=== PATIENT | female | born 1955 | race Caucasian/White ===

== ENCOUNTER 2016-05-17 23:32 | Emergency (ER) | payer OTHER ==
[2016-05-18 00:19] LABS: Appearance,Urine Clear (Clear); Bilirubin,Urine Negative (Negative); Glucose,Urine (UA) Negative (Negative); Ketones,Urine Negative (Negative); Leukocyte Esterase,Urine Trace (Negative); Nitrite,Urine Negative (Negative); Particle Count 1399; Protein,Urine Trace (Negative); RBC,Urine 60 /hpf (0-5); Specific Gravity,Urine 1.008 (1.001-1.035); UA Billing (MACRO vs. MICRO) MICRO; Urobilinogen,Urine <2.0 mg/dL (<2.0); WBC,Urine 3 /hpf (0-5)
[2016-05-18] MEDS ORDERED: SODIUM CHLORIDE 0.9% 500 ML IV ONE (01:30)
[2016-05-18] MEDS ORDERED: MORPHINE SULFATE 2 MG/ML SYRINGE IV STA (01:30)
[2016-05-18 02:08] LABS: Basophils % (A) 0 %; CH 29.3; CHCM 32.7; Eosinophils # (A) 0.2 k/uL (0-0.7); Eosinophils % (A) 2 %; HCT 41.3 % (34.0-46.0); HDW 2.63; HGB 13.6 gm/dL (11.4-16.0); Luc # (Auto) 0.08; Luc % (Auto) 1; Lymphocytes % (A) 11 %; MCH 29.5 pg (25.0-35.0); MCHC 32.8 g/dL (31.0-37.0); MCV 89.9 fL (80.0-100.0); Mean Platelet Volume 8.4; Monocytes # (A) 0.4 k/uL (0-1.0); Monocytes % (A) 4 %; Neutrophils # (A) 7.3 k/uL (1.3-7.7); Neutrophils % (A) 81 %; RDW 12.8 % (11.5-15.5); WBC (Perox) 9.59
[2016-05-18] MEDS ORDERED: ONDANSETRON 4 MG/2 ML VIAL IVP STA (02:10)
[2016-05-18 02:16] LABS: Partial Thromboplastin Time 25.6 sec (22.0-30.0); Prothrombin Time 9.8 sec (9.0-12.0)
[2016-05-18 02:19] LABS: ALT 33 U/L (9-52); AST 26 U/L (14-36); Alkaline Phosphatase 104 U/L (38-126); Amylase 75 U/L (30-110); Anion Gap 13 mmol/L; Blood Urea Nitrogen 20 mg/dL (7-17); Calcium 9.6 mg/dL (8.4-10.2); Carbon Dioxide 18 mmol/L (22-30); Chloride 108 mmol/L (98-107); Glucose 112 mg/dL (74-99); Non-African American GFR(MDRD) 56 (>60 ml/min/1.73 sqM); Potassium 4.4 mmol/L (3.5-5.1); Sodium 139 mmol/L (137-145); Total Bilirubin 0.9 mg/dL (0.2-1.3); Total Protein 6.8 g/dL (6.3-8.2)
--- NOTE | 2016-05-18 02:47 | XR ---
EXAMINATION TYPE: XR KUB DATE OF EXAM: 05/18/2016 2:19 AM CLINICAL HISTORY: Left flank pain gross hematuria history of cholecystectomy. TECHNIQUE: Single supine KUB image of the abdomen is obtained. COMPARISON: March 31, 2016 FINDINGS: Cholecystectomy changes are noted. Small densities are noted superimposing both kidneys and are suspicious for multiple bilateral kidney stones. These densities could also be related to fecal material of the colon. Scattered gas is seen in non-distended small bowel loops. Gas and fecal material is seen in non-dist ended colon. There is no visceromegaly, pneumoperitoneum appreciated. The lung bases are clear and the osseous structures are intact. IMPRESSION: Possible bilateral kidney stones. Overall nonobstructive bowel gas pattern. Cholecystectomy.
[2016-05-18] MEDS ORDERED: FAMOTIDINE 20 MG/2 ML VIAL IV STA (02:48)
[2016-05-18 02:54] LABS: Erythrocyte Sedimentation Rate 5 mm/hr (0-20)
--- NOTE | 2016-05-18 03:16 | ED ---
General Adult HPI - General Chief complaint: Abdominal Pain Stated complaint: L Flank Pain Time Seen by Provider: 05/18/16 00:56 Source: patient, RN notes reviewed Mode of arrival: wheelchair Limitations: no limitations - History of Present Illness Initial comments: This is a 6-year-old female presents with left CVA tenderness that started today. Patient states she has a history of kidney stones but the pain she is having today does not radiate to the groin like her pain has been the past. Patient states she took a Tylenol 3 with codeine and a Flomax with no pain relief. Patient states she has a history of kidney disease and primary pulmonary hypertension. Patient denies any nausea/vomiting/diarrhea, fever/ chills. Patient denies any recent fever, chills, shortness breath, chest pain, abdominal pain, nausea/vomiting/diarrhea, back pain, numbness, tingling, hematuria, headache, or visual changes, or any other complaints. - Related Data Home Medications Medication Instructions Recorded Confirmed Macitentan [Opsumit] 10 mg PO QAM 09/22/13 05/17/16 Ergocalciferol (Vitamin D2) 50,000 unit PO FR 03/31/16 05/17/16 [Drisdol] Fluticasone Nasal [place] [Flonase 1 spray EA NOSTRIL DAILY PRN 03/31/16 05/17/16 Nasal [place]] Previous Rx's Medication Instructions Recorded Potassium Chloride ER [K-Dur 20] 20 meq PO BID #60 tab 07/15/15 Acetaminophen with Codeine 1 tab PO Q4H PRN #20 tab 03/31/16 [Tylenol w/codeine #3] Ondansetron Odt [Zofran Odt] 4 mg PO Q8HR PRN #12 tab 03/31/16 Tamsulosin HCl [Flomax] 0.4 mg PO DAILY #14 cap 03/31/16 Acetaminophen-Codeine 300-30mg 1 tab PO Q6H #15 tablet 05/18/16 [Tylenol #3] Ondansetron Odt [Zofran Odt] 4 mg PO Q12HR 3 Days 05/18/16 Tamsulosin HCl [Flomax] 0.4 mg PO DAILY 5 Days 05/18/16 Allergies Allergy/AdvReac Type Severity Reaction Status Date / Time hydrocodone bitartrate Allergy Severe Nausea & Verified 05/17/16 23:44 [From Vicodin] Vomiting adhesive tape Allergy Rash/Hives Verified 05/17/16 23:44 levofloxacin [From Levaquin] Allergy Unknown Verified 05/17/16 23:44 Penicillins Allergy Rash/Hives Verified 05/17/16 23:44 Sulfa (Sulfonamide Allergy Rash/Hives Verified 05/17/16 23:44 Antibiotics) Review of Systems ROS Statement: Those systems with pertinent positive or pertinent negative responses have been documented in the HPI. ROS Other: All systems not noted in ROS Statement are negative. 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, HX MIGRAINES- NONE IN YEARS, WAS HOSPITALIZED 08/2013 FOR SEPTIC SHOCK, RTA History of Any Multi-Drug Resistant Organisms: None Reported Past Surgical History: Section, Cholecystectomy, Orthopedic Surgery, Tonsillectomy Additional Past Surgical History / Comment(s): X 4, RT KNEE SURGERY 1972, D & C 1978 Past Anesthesia/Blood Transfusion Reactions: Motion Sickness Past Psychological History: Anxiety, Depression Smoking Status: Never smoker Past Alcohol Use History: Occasional Additional Past Alcohol Use History / Comment(s): PT STATES SMOKED FROM AGE 20( 1974) TILL AGE 30(1984) STATES HAS A DRINK 1-2 X A WEEK Past Drug Use History: None Reported - Past Family History Mother Family Medical History: AFIB, CVA/TIA, Neurologic Disorder Additional Family Medical History / Comment(s): HX PARKINSON'S Father Additional Family Medical History / Comment(s): HEART DISEASE AND FOOD ALLERGIES - PT'S UNCLE(P) COLON CA General Exam - General Exam Comments Initial Comments: General: The patient is awake and alert, in no distress, and does not appear acutely ill. Eye: Pupils are equal, round and reactive to light, extra-ocular movements are intact. No nystagmus. There is normal conjunctiva bilaterally. No signs of icterus. Ears: TMs pink and pearly with intact cone of light bilaterally. Normal external ear canals Nose: Nasal turbinates pink and moist Mouth and throat: There are moist mucous membranes and no oral lesions. Neck: The neck is supple, there is no tenderness or JVD. Cardiovascular: There is a regular rate and rhythm. No murmur, rub or gallop is appreciated. Respiratory: Lungs are clear to auscultation, respirations are non-labored, breath sounds are equal. No wheezes, stridor, rales, or rhonchi. Gastrointestinal: Left-sided CVA tenderness present, Soft, non-distended, non- tender abdomen without masses or organomegaly noted. There is no rebound or guarding present. Bowel sounds are unremarkable. Musculoskeletal: Normal ROM, no tenderness. Strength 5/5. Sensation intact. Radial Pulses equal bilaterally 2+. Neurological: A&O x 3. CN II-XII intact, There are no obvious motor or sensory deficits. Coordination appears grossly intact. Speech is normal. Skin: Skin is warm and dry and no rashes or lesions are noted. Psychiatric: Cooperative, appropriate mood & affect, normal judgment. Limitations: no limitations Course Vital Signs 05/17/16 05/18/16 05/18/16 23:41 00:27 01:50 Temperature 98.7 F 97.8 F 98.2 F Pulse Rate 85 80 69 Respiratory 20 18 16 Rate Blood Pressure 116/55 116/67 110/59 O2 Sat by Pulse 97 95 99 Oximetry 05/18/16 05/18/16 03:03 05:10 Temperature 97.8 F 97 F L Pulse Rate 67 87 Respiratory 16 17 Rate Blood Pressure 102/57 129/78 O2 Sat by Pulse 99 97 Oximetry Medical Decision Making - Medical Decision Making This is a 61-year-old female presents with left-sided CVA tenderness that started today. On physical exam around the EC today. Left-sided CVA tenderness present, Soft, non-distended, non-tender abdomen without masses or organomegaly noted. There is no rebound or guarding present. Bowel sounds are unremarkable. Labs were drawn and reviewed. A KUB was done and reviewed showing:Possible bilateral kidney stones. Overall nonobstructive bowel gas pattern. Cholecystectomy. Report read by . At this time patient's pain is under control. A CT of the abdomen and pelvis without contrast was done and reviewed showing: #1 there is a 5 mm obstructing O Ella stone at the left UPJ with mild to moderate left hydronephrosis #2 multiple nonobstructing opaque stones and cysts in both kidneys. #3 visualized appendix appears unremarkable. #4cholecystectomy. Report read by Dr. Liu Discussed results with patient. I discussed the patient will be sent home on Flomax and Tylenol 3 and zofran. I discussed the patient should follow-up with her urologist. Discussed return parameters.Discussed that patient should follow up with PCP in one to 2 days or return to the [facility] for any worsening symptoms or for any further concerns. Patient was receptive to this plan and patient will be discharged home. I discussed his case with attending physician Dr. Larson who agrees the plan as stated above. - Lab Data Result diagrams: 05/18/16 01:47 05/18/16 01:47 Lab Results 05/18/16 05/18/16 05/18/16 Range/Units 00:04 01:47 01:47 WBC 9.0 (3.8-10.6) k/uL RBC 4.60 (3.80-5.40) m/uL Hgb 13.6 (11.4-16.0) gm/dL Hct 41.3 (34.0-46.0) % MCV 89.9 (80.0-100.0) fL MCH 29.5 (25.0-35.0) pg MCHC 32.8 (31.0-37.0) g/dL RDW 12.8 (11.5-15.5) % Plt Count 213 (150-450) k/uL Neutrophils % 81 % Lymphocytes % 11 % Monocytes % 4 % Eosinophils % 2 % Basophils % 0 % Neutrophils # 7.3 (1.3-7.7) k/uL Lymphocytes # 1.0 (1.0-4.8) k/uL Monocytes # 0.4 (0-1.0) k/uL Eosinophils # 0.2 (0-0.7) k/uL Basophils # 0.0 (0-0.2) k/uL ESR 5 (0-20) mm/hr PT (9.0-12.0) sec INR (<1.1) APTT (22.0-30.0) sec Sodium 139 (137-145) mmol/L Potassium 4.4 (3.5-5.1) mmol/L Chloride 108 H (98-107) mmol/L Carbon Dioxide 18 L (22-30) mmol/L Anion Gap 13 mmol/L BUN 20 H (7-17) mg/dL Creatinine 1.00 (0.52-1.04) mg/dL Est GFR (MDRD) Af Amer >60 (>60 ml/min/1.73 sqM) Est GFR (MDRD) Non-Af 56 (>60 ml/min/1.73 sqM) Glucose 112 H (74-99) mg/dL Plasma Lactic Acid [place] (0.7-2.0) mmol/L Calcium 9.6 (8.4-10.2) mg/dL Total Bilirubin 0.9 (0.2-1.3) mg/dL AST 26 (14-36) U/L ALT 33 (9-52) U/L Alkaline Phosphatase 104 (38-126) U/L Total Protein 6.8 (6.3-8.2) g/dL Albumin 4.4 (3.5-5.0) g/dL Amylase 75 (30-110) U/L Lipase 101 (23-300) U/L Urine Color Yellow Urine Appearance Clear (Clear) Urine pH 7.0 (5.0-8.0) Ur Specific Blum 1.008 (1.001-1.035) Urine Protein Trace H (Negative) Urine Glucose (UA) Negative (Negative) Urine Ketones Negative (Negative) Urine Blood Moderate H (Negative) Urine Nitrate Negative (Negative) Urine Bilirubin Negative (Negative) Urine Urobilinogen <2.0 (<2.0) mg/dL Ur Leukocyte Esterase Trace H (Negative) Urine RBC 60 H (0-5) /hpf Urine WBC 3 (0-5) /hpf 05/18/16 05/18/16 Range/Units 01:47 01:47 WBC (3.8-10.6) k/uL RBC (3.80-5.40) m/uL Hgb (11.4-16.0) gm/dL Hct (34.0-46.0) % MCV (80.0-100.0) fL MCH (25.0-35.0) pg MCHC (31.0-37.0) g/dL RDW (11.5-15.5) % Plt Count (150-450) k/uL Neutrophils % % Lymphocytes % % Monocytes % % Eosinophils % % Basophils % % Neutrophils # (1.3-7.7) k/uL Lymphocytes # (1.0-4.8) k/uL Monocytes # (0-1.0) k/uL Eosinophils # (0-0.7) k/uL Basophils # (0-0.2) k/uL ESR (0-20) mm/hr PT 9.8 (9.0-12.0) sec INR 1.0 (<1.1) APTT 25.6 (22.0-30.0) sec Sodium (137-145) mmol/L Potassium (3.5-5.1) mmol/L Chloride (98-107) mmol/L Carbon Dioxide (22-30) mmol/L Anion Gap mmol/L BUN (7-17) mg/dL Creatinine (0.52-1.04) mg/dL Est GFR (MDRD) Af Amer (>60 ml/min/1.73 sqM) Est GFR (MDRD) Non-Af (>60 ml/min/1.73 sqM) Glucose (74-99) mg/dL Plasma Lactic Acid [place] 0.6 L (0.7-2.0) mmol/L Calcium (8.4-10.2) mg/dL Total Bilirubin (0.2-1.3) mg/dL AST (14-36) U/L ALT (9-52) U/L Alkaline Phosphatase (38-126) U/L Total Protein (6.3-8.2) g/dL Albumin (3.5-5.0) g/dL Amylase (30-110) U/L Lipase (23-300) U/L Urine Color Urine Appearance (Clear) Urine pH (5.0-8.0) Ur Specific Blum (1.001-1.035) Urine Protein (Negative) Urine Glucose (UA) (Negative) Urine Ketones (Negative) Urine Blood (Negative) Urine Nitrate (Negative) Urine Bilirubin (Negative) Urine Urobilinogen (<2.0) mg/dL Ur Leukocyte Esterase (Negative) Urine RBC (0-5) /hpf Urine WBC (0-5) /hpf Disposition Clinical Impression: Renal calculus Disposition: HOME SELF-CARE Condition: Good Instructions: Kidney Stones (ED) Additional Instructions: Please use medication as discussed. Please follow-up with urologist as soon as possible. Please follow-up with family doctor in the next 2 days of symptoms have not improved. Please return to emergency room if the symptoms increase or worsen or for any other concerns. Prescriptions: Acetaminophen-Codeine 300-30mg [Tylenol #3] 1 tab PO Q6H #15 tablet Ondansetron Odt [Zofran Odt] 4 mg PO Q12HR 3 Days Tamsulosin HCl [Flomax] 0.4 mg PO DAILY 5 Days Referrals: Naveed Griffin MD [Primary Care Provider] - 1-2 days Pasquale Hernandez MD [STAFF PHYSICIAN] - 1-2 days Time of Disposition: 04:37
--- NOTE | 2016-05-18 04:13 | CT ---
EXAMINATION TYPE: CT abdomen pelvis wo con DATE OF EXAM: 05/18/2016 3:42 AM COMPARISON: NONE HISTORY: left flank pain gross hematuria history of cholecystectomy CT DLP: 308.70 mGycm Automated exposure control for dose reduction was used. TECHNIQUE: Helical acquisition of images was performed from the lung bases through the pelvis. FINDINGS: LUNG BASES: No significant abnormality is appreciated. Minor pericardial effusion is suggested in the axial image 1.. LIVER/GB: No significant abnormality is appreciated in the liver. Cholecystectomy changes are present . PANCREAS: No significant abnormality is seen. SPLEEN: No significant abnormality is seen. ADRENALS: No significant abnormality is seen. KIDNEYS: There are multiple nonobstructing opaque stones in both kidneys with largest of these stones measuring approximately 7 cm in the left kidney in the axial image 61. There is 5 mm obstructing opaque stone at the left UPJ with mild to moderate left hydronephrosis. Dis patricia left ureter showed no definite obstructing stones. There is perinephric stranding on the left atrhur e. There is suggestion of benign-appearing cysts in both kidneys. RETROPERITONEAL ADENOPATHY: None visualized REPRODUCTIVE ORGANS: No significant abnormality is seen URINARY BLADDER: Urinary bladder is not well distended. Thickening of urinary bladder is most likely related to incomplete distention. PELVIC ADENOPATHY: None visualized. OSSEOUS STRUCTURES: No significant abnormality is seen. BOWEL: There is mild to moderate colonic diverticulosis. Visualized appendix is gas-filled and appea rs unremarkable in the coronal image 47.. OTHER: IMPRESSION: 1. THERE IS 5 MM OBSTRUCTING OPAQUE STONE AT THE LEFT UPJ WITH MILD TO MODERATE LEFT HYDRONEPHROSIS. 2. MULTIPLE NONOBSTRUCTING OPAQUE STONES AND CYSTS IN BOTH KIDNEYS. 3. VISUALIZED APPENDIX APPEARS UNREMARKABLE. 4. CHOLECYSTECTOMY. A phone report is given to Antonina Najera at the time of the dictation.
[2016-05-18 05:10] VITALS: BP 129/78; PULSE 87; RESP 17; TEMP 97
== END 2016-05-18 05:10 | disposition home or self-care (01) ==
LOC: EC 23:32
DX: N13.2 Hydronephrosis with renal and ureteral calculous obstruction (principal); Z87.442 Personal history of urinary calculi; I27.0 Primary pulmonary hypertension; Z79.899 Other long term (current) drug therapy; Z79.51 Long term (current) use of inhaled steroids; Z87.891 Personal history of nicotine dependence; Z88.1 Allergy status to other antibiotic agents; Z88.5 Allergy status to narcotic agent; Z88.0 Allergy status to penicillin; Z88.2 Allergy status to sulfonamides
CPT/HCPCS: 99284; 96374; 96375; 36415; 80053; 85652; 82150; 83605; 83690; 85025; 85610; 85730; 81001; 87086; 74000; 74176; J2405; J2270

== ENCOUNTER → 2016-05-20 | Outpatient (CLI) | payer OTHER ==
--- NOTE | 2016-05-20 12:21 | XR ---
EXAMINATION TYPE: XR KUB DATE OF EXAM: 05/20/2016 12:05 PM COMPARISON: 05/18/2016 HISTORY: Pain FINDINGS: The osseous structures are intact. The bowel gas pattern is nonspecific. Post cholecystectomy clips noted. Left kidney: There are approximately 20 to calcifications overlying the left kidney the largest measu ring 7 mm. The 5 mm calculus near the left UPJ is difficult to see due to overlying bowel gas but is suspicious for underlying within the mid ureter on today's exam at the level of L3-L4. Right kidney: There are approximately 11 calcifications overlying the right kidney the largest measur ing 4 mm. Findings appear stable. Within the pelvis there are stable nonspecific calcifications most likely vascular. IMPRESSION: 1. Bilateral nephrolithiasis. The left UPJ calcification may have migrated to the proximal level of L 3-L4.
== END | disposition home or self-care (01) ==
LOC: RADXRMAIN 11:35
PROVIDERS: ATTEND Urology
DX: N20.0 Calculus of kidney (principal)
CPT/HCPCS: 74000

== ENCOUNTER → 2016-05-24 | Outpatient (CLI) | payer OTHER ==
[2016-05-24 11:43] LABS: EKG EKG PERFORMED
[2016-05-24 12:16] LABS: Blood Urea Nitrogen 10 mg/dL (7-17); INR 0.9 (<1.1); Non-African American GFR(MDRD) 44 (>60 ml/min/1.73 sqM); Partial Thromboplastin Time 24.2 sec (22.0-30.0); Prothrombin Time 9.6 sec (9.0-12.0)
== END | disposition home or self-care (01) ==
LOC: LABWHC1 11:12
PROVIDERS: ATTEND Urology
DX: N20.1 Calculus of ureter (principal)
CPT/HCPCS: 36415; 82565; 84520; 85610; 85730; 93005

== ENCOUNTER 2016-05-26 14:16 | Day surgery (SDC) | payer OTHER ==
[2016-05-23 14:48] VITALS: BMI 21.2
[~2016-05-26 14:16] MED LIST: LACTATED RINGERS 1,000 ML IV SCH; Pre Op ABX Message 1 EACH MISC MISCELLANE ONE
--- NOTE | 2016-05-26 14:18 | XR ---
EXAMINATION TYPE: XR KUB DATE OF EXAM: 05/26/2016 2:11 PM HISTORY: Pain Comparison: 05/20/16 Single KUB is submitted for interpretation. Findings: Right renal calculi: Innumerable right-sided renal calculi measuring up to approximately 4 mm in grea test dimension. Right ureteral calculi: None Visualized. Left renal calculi: Innumerable left-sided renal calculi measuring up to 6.5 mm in greatest dimensio n. Left ureteral calculi: Left ureteral calculus measures 5.4 mm and demonstrates distal migration to t he L5 level from the L3-4 level previously. Pelvic calcifications: Multiple pelvic phleboliths and/or distal ureteral calculi seen. Bowel gas pattern is unremarkable. No free air. No mass effects. IMPRESSION: 1. Left ureteral calculus measures 5.4 mm and demonstrates distal migration to the L5 level from the L3-4 level previously.
[2016-05-26 14:40] VITALS: TEMP 97.1
[2016-05-26] MEDS ORDERED: LIDOCAINE 1% 20 ML VIAL (10MG/ML) FOR IV START INTRADERMA ONE (14:47)
[2016-05-26] MEDS ORDERED: MIDAZOLAM 2 MG/2 ML VIAL ONE (15:37)
[2016-05-26] MEDS ORDERED: PROPOFOL 10 MG/ML 20 ML VIAL IV ONE (15:37)
[2016-05-26] MEDS ORDERED: fentaNYL (PF) 50 MCG/ML 2 ML AMP ONE (15:37)
[2016-05-26] MEDS ORDERED: LIDOCAINE 1% INJ 10MG/ML (20 ML MDV) ONE (15:37)
[2016-05-26 16:40] VITALS: BP 121/67; PULSE 57; RESP 16
--- NOTE | 2016-05-27 05:57 | OP ---
DATE OF SERVICE: 05/26/2016 SURGEON: EULALIO VALDEZ MD PREOPERATIVE DIAGNOSIS: Left ureteral calculus. POSTOPERATIVE DIAGNOSIS: Left ureteral calculus. OPERATION: Extracorporeal shockwave lithotripsy of left ureteral calculus. ANESTHESIA: Intravenous sedation. The patient is a 61-year-old female who recently developed severe left flank pain secondary to a 4.5 to 5 mm calculus, which was located in the proximal left ureter. The calculus has migrated only minimally since the onset of her pain. Treatment options were reviewed with the patient and she has elected to proceed with ESWL. DESCRIPTION OF PROCEDURE: The patient was taken the operating suite where adequate intravenous sedation was given. The patient's left ureteral calculus was located at the L5 level and was localized using biplanar fluoroscopy. Lithotripsy was performed using the Dornier compact delta unit. The calculus appeared to have almost completely fragmented after less than 800 shocks, which were given at a rate of 80 shocks per minute and a power level of 5. Lithotripsy was continued to 1500 shocks, but a definite calculus was not identifiable after 800 shocks. Anesthesia was reversed and the patient was returned to the recovery room, awake and in satisfactory condition. She will be seen back in followup in approximately 2 weeks. FLORENCIA
== END 2016-05-26 17:36 | disposition home or self-care (01) ==
LOC: ORWHC2ENDO 14:16
PROVIDERS: ATTEND Urology
DX: N20.1 Calculus of ureter (principal); I27.2 Other secondary pulmonary hypertension; K21.9 Gastro-esophageal reflux disease without esophagitis; F41.9 Anxiety disorder, unspecified; Z79.891 Long term (current) use of opiate analgesic; Z79.899 Other long term (current) drug therapy; Z88.1 Allergy status to other antibiotic agents; Z88.5 Allergy status to narcotic agent; Z88.0 Allergy status to penicillin; Z88.2 Allergy status to sulfonamides; Z91.048 Other nonmedicinal substance allergy status; Z87.891 Personal history of nicotine dependence
CPT/HCPCS: 74000; 50590; J2250; J2001; J3010; J2704; 99153

== ENCOUNTER → 2016-06-09 | Outpatient (CLI) | payer OTHER ==
--- NOTE | 2016-06-09 16:09 | XR ---
EXAMINATION TYPE: XR KUB DATE OF EXAM ORDERED: 06/09/2016 3:53 PM HISTORY: Post lithotripsy. COMPARISON: Previous study dated 05/26/2016. FINDINGS: There continue to be multiple, bilateral renal calculi. The largest on the right is in the lower pole and measures 5.7 mm. The largest on the left within the lower pole and measures 4.4 mm. O verall stone lobe appears to have improved. There are multiple, stable phleboliths within the pelvis. Note is made of a previous cholecystectomy. IMPRESSION: 1. BILATERAL NEPHROLITHIASIS. 2. OVERALL DECREASE IN THE TOTAL STONE LOBE.
== END | disposition home or self-care (01) ==
LOC: RADXRMAIN 15:28
PROVIDERS: ATTEND Urology
DX: N20.1 Calculus of ureter (principal)
CPT/HCPCS: 74000

== ENCOUNTER → 2016-06-09 | Outpatient (CLI) | payer OTHER ==
[2016-06-09 16:43] LABS: Potassium 4.1 mmol/L (3.5-5.1)
== END | disposition home or self-care (01) ==
LOC: LABWHC1 15:57
PROVIDERS: ATTEND Internal Medicine Nephrology
DX: E87.6 Hypokalemia (principal)
CPT/HCPCS: 36415; 80051

== ENCOUNTER → 2016-06-30 | Outpatient (CLI) | payer OTHER ==
[~2016-06-30] MED LIST changes: -LACTATED RINGERS 1,000 ML IV SCH; -Pre Op ABX Message 1 EACH MISC MISCELLANE ONE; +SODIUM CHLORIDE 0.9% 250 ML in EMPTY BAG 1 BAG IV PRN; +SODIUM CHLORIDE 0.9% 500 ML IV SCH; +SODIUM CHLORIDE 0.9% 500 ML in EMPTY BAG 1 BAG IV PRN
[2016-06-30 10:34] VITALS: BP 104/61; PULSE 78; RESP 18; TEMP 98.1
[2016-06-30 11:01] LABS: Blood Urea Nitrogen 13 mg/dL (7-17); Non-African American GFR(MDRD) >60 (>60 ml/min/1.73 sqM)
== END | disposition home or self-care (01) ==
LOC: PROCWHC3 09:53
PROVIDERS: ATTEND Internal Medicine
DX: M18.9 Osteoarthritis of first carpometacarpal joint, unspecified (principal)
CPT/HCPCS: 82565; 84520; 96365

== ENCOUNTER → 2016-06-30 | Outpatient (CLI) | payer OTHER ==
--- NOTE | 2016-06-30 14:09 | CT ---
"EXAMINATION TYPE: CT soft tissue neck w con DATE OF EXAM: 06/30/2016 12:23 PM HISTORY: Patient complains of right submandibular swelling COMPARISON: NONE CT DLP: 326.6 mGycm. Automated Exposure Control for Dose Reduction was Utilized. TECHNIQUE: CT scan of the neck is performed with IV Contrast, patient injected with 80 mL of Visipaq ue 320, axial images are obtained, coronal and sagittal reformatted images are reviewed. FINDINGS: Airway: No gross abnormality seen. Parotid/submandibular glands: Metallic BB is placed at level of palpable abnormality right submandibu lar level on axial image 62. There is heterogeneous enlarged soft tissue mass versus opposite left si de with mild surrounding fat stranding and ill-defined fluid. Normal submandibular gland is felt seen anterior and inferior to this level best near axial image 58. Lesion measures roughly 2.0 x 1.6 cm o n axial image 62. Local mass effect on internal jugular vein anterior wall is identified. There is he terogeneous ill-defined fluid and fat stranding suggesting infectious and/or inflammatory process. Bradford spect abnormal adenopathy. Some developing focal fluid collections along lateral margin are suspected worrisome for developing abscesses. Symmetric normal parapharyngeal fat spaces are seen superior to this. Parotid and submandibular glands are symmetric and felt within normal limits. Carotid/Vascular Structures: No significant focal plaque or stenosis is seen in visualized portion of carotid arteries and bulbs bilaterally. Osseous Structures: Expansile lytic posterior lateral third rib is noted. [place] osseous structures a re demineralized. Other: There is enlarged main pulmonary artery measuring 3.8 cm diameter on axial image 1, CT finding s suggesting underlying pulmonary artery hypertension, clinical correlation advised. There is near complete opacification of bilateral maxillary sinuses. There is mild to moderate mucosa l thickening and patchy opacity in bilateral ethmoid sinuses. There is mucosal thickening and partial opacification of visualized portion of bilateral frontal sinuses. There is patchy moderate mucosal t hickening in bilateral sphenoid sinuses. IMPRESSION: 1. Heterogeneous mass is noted a palpable abnormality felt superior posterior and just lateral to mor e normal-appearing right submandibular gland, some ill-defined fluid and fat stranding is noted. Susp ect adenopathy. Favor infectious and/or inflammatory etiology. Developing tiny abscesses are suspecte d. Neoplastic etiology is not excluded but felt less likely. Clinical correlation advised. Consider f ollow-up imaging to ensure resolution. 2. Acute on chronic paranasal pansinusitis as detailed above. 3. Enlarged pulmonary artery suggesting underlying pulmonary artery hypertension. Clinical correlatio n advised. 4. Expansile lytic left third rib lesion. Differential includes fibrous dysplasia, aneurysmal bone cy st, EG (eosinophilic granulomatosis), and metastatic disease/myeloma. Clinical correlation advised to help determine need for further imaging workup. A Yellow message has been communicated to Naveed Griffin MD via the [employer] | Critical Result s ystem on 06/30/2016 2:07 PM, Message ID [id number]."
== END | disposition home or self-care (01) ==
LOC: RADCTMAIN 06-23 13:23
PROVIDERS: ATTEND Internal Medicine
DX: R22.0 Localized swelling, mass and lump, head (principal)
CPT/HCPCS: 70491; Q9967; 82565; 84520; 96365

== ENCOUNTER → 2016-07-02 | Outpatient (CLI) | payer OTHER ==
[2016-07-02 10:59] LABS: Anion Gap 10 mmol/L; Blood Urea Nitrogen 15 mg/dL (7-17); Calcium 9.5 mg/dL (8.4-10.2); Carbon Dioxide 20 mmol/L (22-30); Chloride 111 mmol/L (98-107); Glucose 89 mg/dL (74-99); Non-African American GFR(MDRD) >60 (>60 ml/min/1.73 sqM); Potassium 4.2 mmol/L (3.5-5.1); Sodium 141 mmol/L (137-145)
== END | disposition home or self-care (01) ==
LOC: LABWHC1 09:58
PROVIDERS: ATTEND Internal Medicine Nephrology
DX: E87.6 Hypokalemia (principal)
CPT/HCPCS: 36415; 80048

== ENCOUNTER 2016-07-11 09:52 | Day surgery (SDC) | payer OTHER ==
[2016-07-11] MEDS ORDERED: DIAZEPAM 5 MG TAB PO STA (10:24)
[2016-07-11 10:36] VITALS: RESP 14; TEMP 97.7
[2016-07-11 11:38] VITALS: BP 108/60; PULSE 73
--- NOTE | 2016-07-11 12:38 | US ---
ULTRASOUND GUIDED FNA SOFT TISSUE RIGHT NECK: CLINICAL HISTORY: Swelling and mass right neck FINDINGS: The procedure was explained to the patient. The risks, complications, benefits and alternatives were discussed and any questions were answered. Informed consent was obtained. Patient was placed supin e on the ultrasound table and prepped and draped in the usual sterile fashion. Utilizing a 25 gauge needle, 3 passes were made into the right neck mass. 4 core samples with an 18-gauge needle were obt ained. Patient was stable throughout the procedure. Pathology is pending. All elements of maximal barrier technique were utilized. IMPRESSION: 1. Successful ultrasound guided FNA and core biopsy right neck mass.
== END 2016-07-11 11:46 | disposition home or self-care (01) ==
LOC: RADPROMAIN 09:52
PROVIDERS: ATTEND Otolaryngology
DX: R59.1 Generalized enlarged lymph nodes (principal)
CPT/HCPCS: 10022; 20206; 76942; 88173; 88305; 88312

== ENCOUNTER → 2016-07-16 | Outpatient (CLI) | payer OTHER | END | disposition home or self-care (01) | LOC: LABWHC1 09:08 | PROVIDERS: ATTEND Internal Medicine | DX: E21.3 Hyperparathyroidism, unspecified (principal); D86.9 Sarcoidosis, unspecified | CPT/HCPCS: 36415; 82164 ==

== ENCOUNTER → 2016-07-22 | Outpatient (CLI) | payer OTHER ==
[2016-07-22 14:53] LABS: Basophils # (A) 0.1 k/uL (0-0.2); Basophils % (A) 1 %; CH 28.7; CHCM 32.4; Eosinophils # (A) 0.1 k/uL (0-0.7); Eosinophils % (A) 1 %; HCT 40.7 % (34.0-46.0); HDW 2.89; HGB 13.1 gm/dL (11.4-16.0); Luc # (Auto) 0.22; Luc % (Auto) 4; Lymphocytes # (A) 1.4 k/uL (1.0-4.8); Lymphocytes % (A) 26 %; MCH 28.8 pg (25.0-35.0); MCHC 32.3 g/dL (31.0-37.0); MCV 89.3 fL (80.0-100.0); Mean Platelet Volume 8.1; Monocytes # (A) 0.2 k/uL (0-1.0); Monocytes % (A) 4 %; Neutrophils # (A) 3.3 k/uL (1.3-7.7); Neutrophils % (A) 63 %; RBC 4.56 m/uL (3.80-5.40); RDW 13.4 % (11.5-15.5); WBC 5.3 k/uL (3.8-10.6); WBC (Perox) 5.68
[2016-07-22 15:02] LABS: Anion Gap 11 mmol/L; Appearance,Urine Clear (Clear); Bilirubin,Urine Negative (Negative); Blood Urea Nitrogen 18 mg/dL (7-17); Calcium 9.6 mg/dL (8.4-10.2); Carbon Dioxide 18 mmol/L (22-30); Chloride 111 mmol/L (98-107); Glucose 96 mg/dL (74-99); Glucose,Urine (UA) Negative (Negative); Iron 85 ug/dL (37-170); Ketones,Urine Negative (Negative); Leukocyte Esterase,Urine Trace (Negative); Magnesium 2.1 mg/dL (1.6-2.3); Mucus,Urine Rare /hpf; Nitrite,Urine Negative (Negative); Non-African American GFR(MDRD) >60 (>60 ml/min/1.73 sqM); PH, Urine 6.5 (5.0-8.0); Particle Count 1838; Phosphorous 3.9 mg/dL (2.5-4.5); Potassium 4.1 mmol/L (3.5-5.1); Protein,Urine Trace (Negative); Sodium 140 mmol/L (137-145); Specific Gravity,Urine 1.009 (1.001-1.035); Squamous Epithelial Cell,Urine <1 /hpf (0-4); UA Billing (MACRO vs. MICRO) MICRO; Uric Acid 4.3 mg/dL (3.7-7.4); Urobilinogen,Urine <2.0 mg/dL (<2.0); WBC,Urine 1 /hpf (0-5)
[2016-07-22 15:11] LABS: % Iron Saturation 31.3 % (20-50); Total Iron Binding Capacity 272 ug/dL (265-497)
== END | disposition home or self-care (01) ==
LOC: LABWHC1 14:30
PROVIDERS: ATTEND Internal Medicine Nephrology
DX: D64.9 Anemia, unspecified (principal); E87.6 Hypokalemia; E55.9 Vitamin D deficiency, unspecified; E21.3 Hyperparathyroidism, unspecified; M10.9 Gout, unspecified; N39.0 Urinary tract infection, site not specified
CPT/HCPCS: 36415; 80048; 81001; 82306; 82728; 83540; 83550; 83735; 83970; 84100; 84550; 85025

== ENCOUNTER → 2016-07-24 | Outpatient (CLI) | payer OTHER ==
--- NOTE | 2016-07-24 21:28 | US ---
EXAMINATION TYPE: US kidneys/renal and bladder DATE OF EXAM: 07/24/2016 4:20 PM COMPARISON: prior us in pacs CLINICAL HISTORY: renal Stone N20.0. pt has known left stones with left lithotripsy in Apr 2016; rech rainer EXAM MEASUREMENTS: Right Kidney: 11.0 x 4.4 x 5.8 cm Left Kidney: 10.0 x 5.5 x 4.6 cm Right Kidney: 9 mm cortical hypoechoic nodule. No hydronephrosis or nephrolithiasis. Left Kidney: 1 cm hyperechoic focus. No hydronephrosis. Hypoechoic nodules are seen measuring less th an centimeter. Bladder: wnl Bilateral Jets IMPRESSION: Bilateral hypoechoic nodules most typical of simple cysts. Nonobstructing 1 cm left renal calculus.
== END | disposition home or self-care (01) ==
LOC: RADUSWWP 16:01
PROVIDERS: ATTEND Internal Medicine Nephrology
DX: N20.0 Calculus of kidney (principal); N28.89 Other specified disorders of kidney and ureter
CPT/HCPCS: 76770

== ENCOUNTER → 2016-08-05 | Outpatient (CLI) | payer OTHER | END | disposition home or self-care (01) | LOC: LABWHC1 11:50 | PROVIDERS: ATTEND Internal Medicine Nephrology | DX: Z53.9 Procedure and treatment not carried out, unspecified reason (principal) ==

== ENCOUNTER → 2016-08-05 | Outpatient (CLI) | payer OTHER ==
[2016-08-05 12:26] LABS: Basophils % (A) 1 %; CH 28.5; CHCM 31.5; Eosinophils % (A) 1 %; HCT 41.1 % (34.0-46.0); HDW 2.57; Luc # (Auto) 0.11; Luc % (Auto) 3; Lymphocytes # (A) 1.3 k/uL (1.0-4.8); Lymphocytes % (A) 29 %; MCH 28.8 pg (25.0-35.0); MCHC 31.6 g/dL (31.0-37.0); MCV 91.1 fL (80.0-100.0); Mean Platelet Volume 7.8; Monocytes # (A) 0.2 k/uL (0-1.0); Monocytes % (A) 5 %; Neutrophils # (A) 2.7 k/uL (1.3-7.7); Neutrophils % (A) 62 %; RBC 4.52 m/uL (3.80-5.40); RDW 13.5 % (11.5-15.5); WBC 4.4 k/uL (3.8-10.6)
[2016-08-05 12:50] LABS: Potassium 4.4 mmol/L (3.5-5.1)
== END | disposition home or self-care (01) ==
LOC: LABPAT 11:55
PROVIDERS: ATTEND Urology
DX: N20.0 Calculus of kidney (principal)
CPT/HCPCS: 80051; 85025

== ENCOUNTER 2016-08-11 07:52 | Day surgery (SDC) | payer OTHER ==
[2016-08-07 12:05] VITALS: BMI 21.2
[~2016-08-11 07:52] MED LIST changes: +LACTATED RINGERS 1,000 ML IV SCH; +LIDOCAINE 1% 20 ML VIAL (10MG/ML) FOR IV START INTRADERMA PRN; +Pre Op ABX Message 1 EACH MISC MISCELLANE ONE; -SODIUM CHLORIDE 0.9% 250 ML in EMPTY BAG 1 BAG IV PRN; -SODIUM CHLORIDE 0.9% 500 ML IV SCH; -SODIUM CHLORIDE 0.9% 500 ML in EMPTY BAG 1 BAG IV PRN
--- NOTE | 2016-08-11 07:57 | XR ---
EXAMINATION TYPE: XR KUB DATE OF EXAM: 08/11/2016 7:47 AM CLINICAL DATA: 61 year-old female left ureteral calculus, presurgical evaluation, [facility] COMPARISON: 06/09/2016 FINDINGS: Cholecystectomy clips. Moderate to large stool burden. Nonobstructive bowel gas pattern. Numerous pelvic phleboliths. Left greater than right bilateral midabdominal calcifications measuring up to 5 mm on the left and 4 mm on the right. IMPRESSION: 1. Numerous bilateral renal calculi measuring up to 5 mm on the left and 4 mm on the right. 2. Moderate to large stool burden. 3. Numerous pelvic phleboliths.
[2016-08-11 08:26] VITALS: RESP 18; TEMP 97.9
[2016-08-11] MEDS ORDERED: MIDAZOLAM 2 MG/2 ML VIAL ONE (09:32)
[2016-08-11] MEDS ORDERED: fentaNYL (PF) 50 MCG/ML 2 ML AMP ONE (09:32)
[2016-08-11] MEDS ORDERED: PROPOFOL 10 MG/ML 20 ML VIAL IV ONE (09:32)
--- NOTE | 2016-08-11 10:19 | P.OP ---
Date of Procedure: 08/11/16 Preoperative Diagnosis: Left Renal Calculi Postoperative Diagnosis: Same Procedure(s) Performed: Left extracorporeal shockwave lithotripsy (ESWL) Anesthesia: MAC Surgeon: Asael Townsend Estimated Blood Loss (ml): 0 IV fluids (ml): 450 Pathology: none sent Condition: stable Disposition: PACU Indications for Procedure: The patient will undergo ESWL treatment of a 5 mm calculus in the upper pole of the left kidney. Operative Findings: Questionable fragmentation Description of Procedure: The patient was taken to the operating room and placed on the DorniAppscio Delta II lithotripter in the supine position. The calculus was seen on biplanar fluoroscopy. Once the patient was properly positioned and sedated, lithotripsy was performed. The energy level was gradually increased per protocol, to an energy level of 4. After 200 shocks were administered, a 2 minute pause was instituted per protocol. A total of 2500 shocks were given at a rate of 80 shocks per minute. Fluoroscopy was utilized at a minimum to ensure proper positioning and determine the treatment status. The appearance of the calculus appeared to change, suggesting fragmentation had occurred. The patient tolerated the procedure well was taken to the recovery room in stable condition. Instructions were given to strain the urine, and the patient will follow-up within one week.
[2016-08-11 11:16] VITALS: PULSE 63
[2016-08-11 12:08] VITALS: BP 115/69
== END 2016-08-11 11:45 | disposition home or self-care (01) ==
LOC: ORWHC2ENDO 07:52
PROVIDERS: ATTEND Urology
DX: N20.2 Calculus of kidney with calculus of ureter (principal); I87.8 Other specified disorders of veins; N25.89 Other disorders resulting from impaired renal tubular function; I27.0 Primary pulmonary hypertension; F39 Unspecified mood [affective] disorder; K21.9 Gastro-esophageal reflux disease without esophagitis; Z79.891 Long term (current) use of opiate analgesic; Z79.899 Other long term (current) drug therapy; Z88.1 Allergy status to other antibiotic agents; Z88.5 Allergy status to narcotic agent; Z88.0 Allergy status to penicillin; Z88.2 Allergy status to sulfonamides; Z88.8 Allergy status to other drugs, medicaments and biological substances; Z91.048 Other nonmedicinal substance allergy status; Z87.891 Personal history of nicotine dependence
CPT/HCPCS: 74000; 50590; J2250; J3010; J2704

== ENCOUNTER → 2016-08-14 | Outpatient (CLI) | payer OTHER ==
--- NOTE | 2016-08-14 10:04 | XR ---
EXAMINATION TYPE: XR abdomen 1V DATE OF EXAM: 08/14/2016 9:44 AM COMPARISON: 08/11/2016 INDICATION: Renal stones TECHNIQUE: Single view abdomen frontal projection FINDINGS: There is a normal bowel gas pattern. Psoas margins are normal. No organomegaly is present. Cholecystectomy clips are present. Multiple calcifications overlie the bilateral kidneys. On the left the largest measures 0.6 cm. On th e right the largest measures 0.2 cm. Calcification to appear stable from the prior examination. IMPRESSION: 1. Multiple bilateral stable renal calculi.
== END ==
LOC: RADXRMAIN 09:28
PROVIDERS: ATTEND Urology
DX: N20.0 Calculus of kidney (principal)
CPT/HCPCS: 74000

== ENCOUNTER → 2016-09-02 | Outpatient (CLI) | payer OTHER ==
--- NOTE | 2016-09-05 13:20 | MM ---
Reason for exam: screening (asymptomatic). Last mammogram was performed 1 year and 2 months ago. History: Patient is postmenopausal. Family history of breast cancer in paternal aunt at age 50. Physical Findings: A clinical breast exam by your physician is recommended on an annual basis and results should be correlated with mammographic findings. MG 3D Screening Mammo W/Cad Bilateral CC and MLO view(s) were taken. Prior study comparison: June 20, 2015, bilateral MG 3d screening mammo w/cad. February 28, 2014, bilateral MG screening mammo w CAD. January 23, 2012, CAD bilateral diagnostic mammogram. The breast tissue is heterogeneously dense. This may lower the sensitivity of mammography. There is chronic nodularity in the left breast. No significant changes when compared with prior studies. ASSESSMENT: Benign, BI-RAD 2 RECOMMENDATION: Routine screening mammogram of both breasts in 1 year.
== END | disposition home or self-care (01) ==
LOC: RADMAMWWP 13:04
PROVIDERS: ATTEND Obstetrics & Gynecology
DX: Z12.31 Encounter for screening mammogram for malignant neoplasm of breast (principal)
CPT/HCPCS: 77063; G0202

== ENCOUNTER → 2016-09-24 | Outpatient (CLI) | payer OTHER ==
[2016-09-24 12:57] LABS: Basophils % (A) 0 %; CH 28.8; CHCM 31.1; Eosinophils # (A) 0.1 k/uL (0-0.7); Eosinophils % (A) 3 %; HCT 43.3 % (34.0-46.0); HDW 2.17; HGB 13.6 gm/dL (11.4-16.0); Luc # (Auto) 0.09; Luc % (Auto) 2; Lymphocytes # (A) 1.2 k/uL (1.0-4.8); Lymphocytes % (A) 30 %; MCH 29.1 pg (25.0-35.0); MCHC 31.4 g/dL (31.0-37.0); MCV 92.9 fL (80.0-100.0); Mean Platelet Volume 7.9; Monocytes # (A) 0.2 k/uL (0-1.0); Monocytes % (A) 5 %; Neutrophils # (A) 2.4 k/uL (1.3-7.7); Neutrophils % (A) 59 %; RBC 4.66 m/uL (3.80-5.40); RDW 13.1 % (11.5-15.5); WBC 4.1 k/uL (3.8-10.6); WBC (Perox) 4.15
[2016-09-24 13:46] LABS: Anion Gap 8 mmol/L; Blood Urea Nitrogen 15 mg/dL (7-17); Calcium 9.5 mg/dL (8.4-10.2); Carbon Dioxide 27 mmol/L (22-30); Chloride 106 mmol/L (98-107); Glucose 91 mg/dL (74-99); Iron 65 ug/dL (37-170); Non-African American GFR(MDRD) >60 (>60 ml/min/1.73 sqM); Phosphorous 4.3 mg/dL (2.5-4.5); Potassium 5.1 mmol/L (3.5-5.1); Sodium 141 mmol/L (137-145); Uric Acid 5.7 mg/dL (3.7-7.4)
[2016-09-24 13:56] LABS: % Iron Saturation 21.3 % (20-50); Total Iron Binding Capacity 305 ug/dL (265-497)
[2016-09-24 14:06] LABS: Appearance,Urine Clear (Clear); Bilirubin,Urine Negative (Negative); Glucose,Urine (UA) Negative (Negative); Ketones,Urine Negative (Negative); Leukocyte Esterase,Urine Negative (Negative); Nitrite,Urine Negative (Negative); Protein,Urine Negative (Negative); Specific Gravity,Urine 1.013 (1.001-1.035); UA Billing (MACRO vs. MICRO) CHEM; Urobilinogen,Urine <2.0 mg/dL (<2.0)
== END | disposition home or self-care (01) ==
LOC: LABWHC1 11:51
PROVIDERS: ATTEND Internal Medicine Nephrology
DX: N25.89 Other disorders resulting from impaired renal tubular function (principal); D64.9 Anemia, unspecified; E21.3 Hyperparathyroidism, unspecified; M10.9 Gout, unspecified; N39.0 Urinary tract infection, site not specified
CPT/HCPCS: 36415; 80048; 81003; 82306; 82728; 83540; 83550; 83735; 83970; 84100; 84550; 85025

== ENCOUNTER → 2016-10-07 | Outpatient (CLI) | payer OTHER ==
[2016-10-07 10:51] LABS: Potassium 4.3 mmol/L (3.5-5.1)
== END | disposition home or self-care (01) ==
LOC: LABWHC1 10:05
PROVIDERS: ATTEND Internal Medicine Nephrology
DX: I27.0 Primary pulmonary hypertension (principal)
CPT/HCPCS: 36415; 80051; 86850; 86900; 86901

== ENCOUNTER → 2017-01-01 | Outpatient (CLI) | payer OTHER ==
[2017-01-01 13:09] LABS: Anion Gap 8 mmol/L; Blood Urea Nitrogen 12 mg/dL (7-17); Calcium 9.6 mg/dL (8.4-10.2); Carbon Dioxide 27 mmol/L (22-30); Chloride 103 mmol/L (98-107); Glucose 87 mg/dL (74-99); Non-African American GFR(MDRD) >60 (>60 ml/min/1.73 sqM); Potassium 4.9 mmol/L (3.5-5.1); Sodium 138 mmol/L (137-145)
== END | disposition home or self-care (01) ==
LOC: LABWHC1 11:59
PROVIDERS: ATTEND Internal Medicine Nephrology
DX: I27.0 Primary pulmonary hypertension (principal)
CPT/HCPCS: 36415; 80048

== ENCOUNTER → 2017-05-28 | Outpatient (CLI) | payer OTHER ==
[2017-05-28 12:53] LABS: HCT 42.9 % (34.0-46.0); HGB 14.1 gm/dL (11.4-16.0); MCHC 32.9 g/dL (31.0-37.0); MCV 91.2 fL (80.0-100.0); Mean Platelet Volume 8.1; Platelet Count 203 k/uL (150-450); RBC 4.71 m/uL (3.80-5.40); RDW 12.6 % (11.5-15.5); WBC 5.3 k/uL (3.8-10.6)
[2017-05-28 13:01] LABS: Prothrombin Time 9.9 sec (9.0-12.0)
[2017-05-28 13:03] LABS: Anion Gap 10 mmol/L; Blood Urea Nitrogen 18 mg/dL (7-17); Calcium 9.7 mg/dL (8.4-10.2); Carbon Dioxide 25 mmol/L (22-30); Chloride 103 mmol/L (98-107); Glucose 106 mg/dL (74-99); Potassium 4.7 mmol/L (3.5-5.1); Sodium 138 mmol/L (137-145)
== END | disposition home or self-care (01) ==
LOC: LABWHC1 12:33
PROVIDERS: ATTEND Internal Medicine Cardiovascular Disease
DX: Z01.812 Encounter for preprocedural laboratory examination (principal); I25.10 Atherosclerotic heart disease of native coronary artery without angina pectoris
CPT/HCPCS: 36415; 80048; 85027; 85610

== ENCOUNTER → 2017-09-30 | Outpatient (CLI) | payer OTHER ==
--- NOTE | 2017-10-05 13:21 | MM ---
Reason for exam: screening (asymptomatic). Last mammogram was performed 1 year and 1 month ago. History: Patient is postmenopausal. Family history of breast cancer in paternal aunt at age 50. Physical Findings: A clinical breast exam by your physician is recommended on an annual basis and results should be correlated with mammographic findings. MG 3D Screening Mammo W/Cad Bilateral CC and MLO view(s) were taken. Prior study comparison: September 02, 2016, bilateral MG 3d screening mammo w/cad. June 20, 2015, bilateral MG 3d screening mammo w/cad. The breast tissue is heterogeneously dense. This may lower the sensitivity of mammography. There is chronic nodularity in the left breast. No significant changes when compared with prior studies. ASSESSMENT: Benign, BI-RAD 2 RECOMMENDATION: Routine screening mammogram of both breasts in 1 year.
== END | disposition home or self-care (01) ==
LOC: RADMAMWWP 14:58
PROVIDERS: ATTEND Obstetrics & Gynecology
DX: Z12.31 Encounter for screening mammogram for malignant neoplasm of breast (principal); Z80.3 Family history of malignant neoplasm of breast
CPT/HCPCS: 77063; 77067

== ENCOUNTER 2018-06-12 12:49 | Emergency (ER) | payer BC, OTHER ==
[2018-06-12 13:24] VITALS: BP 92/61; PULSE 73; RESP 18; TEMP 98.1
[2018-06-12] MEDS ORDERED: SODIUM CHLORIDE 0.9% 1,000 ML IV ONE (13:53)
--- NOTE | 2018-06-12 13:54 | ED ---
General Adult HPI - General Chief complaint: Recheck/Abnormal Lab/Rx Stated complaint: low potassium Time Seen by Provider: 06/12/18 13:40 Source: patient, RN notes reviewed Mode of arrival: ambulatory Limitations: no limitations - History of Present Illness Initial comments: 63-year-old female sent emergency Department chief complaint of muscle aches, spasms. Patient states that they have started last few days or so. Patient is concerned about her potassium and she's had issues with this in the past. She does take distant citrate. Patient states that she was going to Thursday see her PCP but symptoms worsen. She states that she has chronic left shoulder pain secondary to adhesive capsulitis but states that she's having leg cramps, other areas. Patient denies any medications. Patient denies any fever or chills no URI symptoms. - Related Data Home Medications Medication Instructions Recorded Confirmed Macitentan [Opsumit] 10 mg PO QAM 09/22/13 06/12/18 Potassium Citrate [Potassium 10 meq PO QAM 08/07/16 06/12/18 Citrate ER] Atorvastatin Calcium [Lipitor] 10 mg PO HS 06/12/18 06/12/18 Potassium Citrate [Potassium 20 meq PO HS 06/12/18 06/12/18 Citrate ER] Sildenafil [Revatio] 20 mg PO TID 06/12/18 06/12/18 Ubidecarenone [Co Q-10] 100 mg PO DAILY 06/12/18 06/12/18 Allergies Allergy/AdvReac Type Severity Reaction Status Date / Time hydrocodone bitartrate Allergy Severe Nausea & Verified 06/12/18 17:41 [From Vicodin] Vomiting adhesive tape Allergy Rash/Hives Verified 06/12/18 17:41 levofloxacin [From Levaquin] Allergy Unknown Verified 06/12/18 17:41 Penicillins Allergy Rash/Hives Verified 06/12/18 17:41 Quinolones Allergy AFFECTS Verified 06/12/18 17:41 HEART RHYTHM Sulfa (Sulfonamide Allergy Rash/Hives Verified 06/12/18 17:41 Antibiotics) Review of Systems ROS Statement: Those systems with pertinent positive or pertinent negative responses have been documented in the HPI. ROS Other: All systems not noted in ROS Statement are negative. 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 Past Anesthesia/Blood Transfusion Reactions: No Reported Reaction Past Psychological History: Anxiety, Depression Smoking Status: Former smoker Past Alcohol Use History: Occasional Past Drug Use History: None Reported - Past Family History Mother Family Medical History: AFIB, CVA/TIA, Neurologic Disorder Additional Family Medical History / Comment(s): HX PARKINSON'S Father Family Medical History: CVA/TIA Additional Family Medical History / Comment(s): HEART DISEASE AND FOOD ALLERGIES General Exam Limitations: no limitations General appearance: alert, in no apparent distress Head exam: Present: atraumatic, normocephalic, normal inspection Eye exam: Present: normal appearance, PERRL, EOMI. Absent: scleral icterus, conjunctival injection, periorbital swelling ENT exam: Present: normal exam, normal oropharynx, mucous membranes moist Neck exam: Present: normal inspection. Absent: tenderness, meningismus, lymphadenopathy Respiratory exam: Present: normal lung sounds bilaterally. Absent: respiratory distress, wheezes, rales, rhonchi, stridor Cardiovascular Exam: Present: regular rate, normal rhythm, normal heart sounds. Absent: systolic murmur, diastolic murmur, rubs, gallop, clicks GI/Abdominal exam: Present: soft, normal bowel sounds. Absent: distended, tenderness, guarding, rebound, rigid Neurological exam: Present: alert, oriented X3, CN II-XII intact Skin exam: Present: warm, dry, intact, normal color. Absent: rash Course Vital Signs 06/12/18 13:21 Temperature 98.1 F Pulse Rate 73 Respiratory 18 Rate Blood Pressure 92/61 O2 Sat by Pulse 98 Oximetry Medical Decision Making - Medical Decision Making 63-year-old female presented emergency department for muscle aches and joint aches. Patient had concerns of low potassium this was ruled out. Patient headache other workup including complete CBC, CMP and EKG, troponin CK which is unremarkable. Patient will follow-up with her PCP and return for any worsening symptoms. - Lab Data Result diagrams: 06/12/18 14:52 06/12/18 14:52 Lab Results 06/12/18 06/12/18 06/12/18 Range/Units 14:52 14:52 14:52 WBC 6.4 (3.8-10.6) k/uL RBC 4.44 (3.80-5.40) m/uL Hgb 13.0 (11.4-16.0) gm/dL Hct 39.4 (34.0-46.0) % MCV 88.7 (80.0-100.0) fL MCH 29.3 (25.0-35.0) pg MCHC 33.0 (31.0-37.0) g/dL RDW 12.6 (11.5-15.5) % Plt Count 229 (150-450) k/uL Neutrophils % 70 % Lymphocytes % 21 % Monocytes % 4 % Eosinophils % 2 % Basophils % 0 % Neutrophils # 4.5 (1.3-7.7) k/uL Lymphocytes # 1.4 (1.0-4.8) k/uL Monocytes # 0.3 (0-1.0) k/uL Eosinophils # 0.2 (0-0.7) k/uL Basophils # 0.0 (0-0.2) k/uL ESR 9 (0-20) mm/hr Sodium 139 (137-145) mmol/L Potassium 4.5 (3.5-5.1) mmol/L Chloride 105 (98-107) mmol/L Carbon Dioxide 25 (22-30) mmol/L Anion Gap 9 mmol/L BUN 20 H (7-17) mg/dL Creatinine 0.86 (0.52-1.04) mg/dL Est GFR (CKD-EPI)AfAm 84 (>60 ml/min/1.73 sqM) Est GFR (CKD-EPI)NonAf 73 (>60 ml/min/1.73 sqM) Glucose 94 (74-99) mg/dL Calcium 9.4 (8.4-10.2) mg/dL Magnesium 1.8 (1.6-2.3) mg/dL Total Bilirubin 0.6 (0.2-1.3) mg/dL AST 22 (14-36) U/L ALT 27 (9-52) U/L Alkaline Phosphatase 73 (38-126) U/L Creatine Kinase (30-135) U/L Troponin I <0.012 (0.000-0.034) ng/mL C-Reactive Protein 14.4 H (<10.0) mg/L Total Protein 6.5 (6.3-8.2) g/dL Albumin 4.2 (3.5-5.0) g/dL Urine Color Urine Appearance (Clear) Urine pH (5.0-8.0) Ur Specific [place] (1.001-1.035) Urine Protein (Negative) Urine Glucose (UA) (Negative) Urine Ketones (Negative) Urine Blood (Negative) Urine Nitrite (Negative) Urine Bilirubin (Negative) Urine Urobilinogen (<2.0) mg/dL Ur Leukocyte Esterase (Negative) 06/12/18 06/12/18 Range/Units 14:52 17:35 WBC (3.8-10.6) k/uL RBC (3.80-5.40) m/uL Hgb (11.4-16.0) gm/dL Hct (34.0-46.0) % MCV (80.0-100.0) fL MCH (25.0-35.0) pg MCHC (31.0-37.0) g/dL RDW (11.5-15.5) % Plt Count (150-450) k/uL Neutrophils % % Lymphocytes % % Monocytes % % Eosinophils % % Basophils % % Neutrophils # (1.3-7.7) k/uL Lymphocytes # (1.0-4.8) k/uL Monocytes # (0-1.0) k/uL Eosinophils # (0-0.7) k/uL Basophils # (0-0.2) k/uL ESR (0-20) mm/hr Sodium (137-145) mmol/L Potassium (3.5-5.1) mmol/L Chloride (98-107) mmol/L Carbon Dioxide (22-30) mmol/L Anion Gap mmol/L BUN (7-17) mg/dL Creatinine (0.52-1.04) mg/dL Est GFR (CKD-EPI)AfAm (>60 ml/min/1.73 sqM) Est GFR (CKD-EPI)NonAf (>60 ml/min/1.73 sqM) Glucose (74-99) mg/dL Calcium (8.4-10.2) mg/dL Magnesium (1.6-2.3) mg/dL Total Bilirubin (0.2-1.3) mg/dL AST (14-36) U/L ALT (9-52) U/L Alkaline Phosphatase (38-126) U/L Creatine Kinase 53 (30-135) U/L Troponin I (0.000-0.034) ng/mL C-Reactive Protein (<10.0) mg/L Total Protein (6.3-8.2) g/dL Albumin (3.5-5.0) g/dL Urine Color Light Yellow Urine Appearance Clear (Clear) Urine pH 7.0 (5.0-8.0) Ur Specific [place] 1.005 (1.001-1.035) Urine Protein Negative (Negative) Urine Glucose (UA) Negative (Negative) Urine Ketones Negative (Negative) Urine Blood Negative (Negative) Urine Nitrite Negative (Negative) Urine Bilirubin Negative (Negative) Urine Urobilinogen <2.0 (<2.0) mg/dL Ur Leukocyte Esterase Negative (Negative) Disposition Clinical Impression: Myalgia, Arthralgia Disposition: HOME SELF-CARE Condition: Stable Instructions (If sedation given, give patient instructions): Arthralgia (ED) Additional Instructions: Please return to the Emergency Department if symptoms worsen or any other concerns. Is patient prescribed a controlled substance at d/c from ED?: No Referrals: Hossein Larry DO [Primary Care Provider] - 1-2 days Time of Disposition: 18:11
[2018-06-12 15:17] LABS: Basophils % (A) 0 %; Eosinophils # (A) 0.2 k/uL (0-0.7); Eosinophils % (A) 2 %; HCT 39.4 % (34.0-46.0); Lymphocytes # (A) 1.4 k/uL (1.0-4.8); Lymphocytes % (A) 21 %; MCH 29.3 pg (25.0-35.0); MCV 88.7 fL (80.0-100.0); Mean Platelet Volume 7.1; Monocytes # (A) 0.3 k/uL (0-1.0); Monocytes % (A) 4 %; Neutrophils # (A) 4.5 k/uL (1.3-7.7); Neutrophils % (A) 70 %; Platelet Count 229 k/uL (150-450); RBC 4.44 m/uL (3.80-5.40); RDW 12.6 % (11.5-15.5); WBC 6.4 k/uL (3.8-10.6)
[2018-06-12 15:27] LABS: Albumin 4.2 g/dL (3.5-5.0); C Reactive Protein 14.4 mg/L (<10.0); Calcium 9.4 mg/dL (8.4-10.2); Magnesium 1.8 mg/dL (1.6-2.3); Potassium 4.5 mmol/L (3.5-5.1); Total Bilirubin 0.6 mg/dL (0.2-1.3); Total Protein 6.5 g/dL (6.3-8.2)
[2018-06-12 15:58] LABS: Erythrocyte Sedimentation Rate 9 mm/hr (0-20)
[2018-06-12 17:47] LABS: Appearance,Urine Clear (Clear); Bilirubin,Urine Negative (Negative); Blood,Urine Negative (Negative); Color,Urine Light Yellow; Glucose,Urine (UA) Negative (Negative); Ketones,Urine Negative (Negative); Leukocyte Esterase,Urine Negative (Negative); Nitrite,Urine Negative (Negative); Protein,Urine Negative (Negative); Specific Gravity,Urine 1.005 (1.001-1.035); Urobilinogen,Urine <2.0 mg/dL (<2.0)
== END 2018-06-12 18:27 | disposition home or self-care (01) ==
LOC: EC 12:49
DX: M79.10 Myalgia, unspecified site (principal); M75.02 Adhesive capsulitis of left shoulder; I27.20 Pulmonary hypertension, unspecified; M17.0 Bilateral primary osteoarthritis of knee; Z87.891 Personal history of nicotine dependence; Z88.0 Allergy status to penicillin; Z88.1 Allergy status to other antibiotic agents; Z88.2 Allergy status to sulfonamides; Z88.5 Allergy status to narcotic agent; Z91.048 Other nonmedicinal substance allergy status; Z79.899 Other long term (current) drug therapy; Z98.890 Other specified postprocedural states
CPT/HCPCS: 36415; 80053; 81003; 82550; 83735; 84484; 85025; 85652; 86140; 93005; 96360; 96361; 99284

== ENCOUNTER → 2018-07-26 | Outpatient (CLI) | payer BC ==
[2018-07-26 15:32] LABS: Basophils % (A) 0 %; Eosinophils # (A) 0.1 k/uL (0-0.7); Eosinophils % (A) 1 %; HCT 39.6 % (34.0-46.0); HGB 12.5 gm/dL (11.4-16.0); Lymphocytes # (A) 1.6 k/uL (1.0-4.8); Lymphocytes % (A) 27 %; MCHC 31.6 g/dL (31.0-37.0); MCV 88.7 fL (80.0-100.0); Mean Platelet Volume 7.2; Monocytes # (A) 0.3 k/uL (0-1.0); Monocytes % (A) 5 %; Neutrophils # (A) 3.9 k/uL (1.3-7.7); Neutrophils % (A) 65 %; Platelet Count 243 k/uL (150-450); RBC 4.46 m/uL (3.80-5.40); RDW 12.7 % (11.5-15.5)
[2018-07-26 17:46] LABS: Erythrocyte Sedimentation Rate 22 mm/hr (0-20)
[2018-07-26 23:42] LABS: Rheumatoid Factor 7 IU/mL (0-15); Streptolysin O Ab(ASO) <25 IU/mL (0-200)
[2018-07-26 23:50] LABS: Vitamin D 25 Hydroxy 34.3 ng/mL (30.0-100.0)
[2018-07-26 23:54] LABS: Anion Gap 8.1 mmol/L (4.00-12.00); C Reactive Protein 5.8 mg/dL (0.0-0.8); Calcium 9.6 mg/dL (8.7-10.3); Carbon Dioxide 26.9 mmol/L (21.6-31.8); Potassium 4.3 mmol/L (3.5-5.5); Uric Acid 4.6 mg/dL (2.9-7.7)
[2018-07-27 00:04] LABS: T4, Free (Free Thyroxine) 1.1 ng/dL (0.80-1.80)
[2018-07-27 01:17] LABS: Cyclic Citrullinated Pep IgG NEGATIVE (NEGATIVE)
[2018-07-27 12:12] LABS: HLA B27 NEGATIVE
[2018-07-27 12:15] LABS: Angiotensin-1 Converting Enz. 18 U/L (8-52)
[2018-07-27 12:18] LABS: Lyme IgG/IgM 0.1 Index
== END | disposition home or self-care (01) ==
LOC: LABWHC1 14:29
PROVIDERS: ATTEND Physician Assistant
DX: S46.002D Unspecified injury of muscle(s) and tendon(s) of the rotator cuff of left shoulder, subsequent encounter (principal); I51.9 Heart disease, unspecified; E78.5 Hyperlipidemia, unspecified; N18.9 Chronic kidney disease, unspecified; M25.512 Pain in left shoulder; M25.511 Pain in right shoulder; Z87.891 Personal history of nicotine dependence
CPT/HCPCS: 36415; 80048; 82164; 82306; 82550; 84439; 84443; 84450; 84460; 84550; 85025; 85652; 86038; 86060; 86140; 86200; 86431; 86618; 86812

== ENCOUNTER → 2018-08-02 | Outpatient (CLI) | payer BC ==
[2018-08-02 13:52] LABS: Basophils % (A) 0 %; Eosinophils # (A) 0.1 k/uL (0-0.7); Eosinophils % (A) 1 %; HCT 39.4 % (34.0-46.0); HGB 12.5 gm/dL (11.4-16.0); Lymphocytes # (A) 1.2 k/uL (1.0-4.8); Lymphocytes % (A) 8 %; MCH 27.8 pg (25.0-35.0); MCHC 31.8 g/dL (31.0-37.0); MCV 87.7 fL (80.0-100.0); Monocytes # (A) 0.4 k/uL (0-1.0); Monocytes % (A) 3 %; Neutrophils # (A) 13.2 k/uL (1.3-7.7); Neutrophils % (A) 88 %; Platelet Count 301 k/uL (150-450); RDW 12.9 % (11.5-15.5)
[2018-08-02 14:07] LABS: Appearance,Urine Clear (Clear); Bilirubin,Urine Negative (Negative); Blood,Urine Negative (Negative); Color,Urine Light Yellow; Glucose,Urine (UA) Negative (Negative); Ketones,Urine Negative (Negative); Leukocyte Esterase,Urine Negative (Negative); Nitrite,Urine Negative (Negative); Protein,Urine Negative (Negative); Specific Gravity,Urine 1.004 (1.001-1.035); Urobilinogen,Urine <2.0 mg/dL (<2.0)
[2018-08-02 18:56] LABS: Parathyroid Hormone Intact 75.9 pg/mL (14.0-72.0)
[2018-08-02 21:29] LABS: Iron Saturation 11.15 (12.00-45.00)
[2018-08-02 21:38] LABS: Vitamin D 25 Hydroxy 42.4 ng/mL (30.0-100.0)
[2018-08-02 21:40] LABS: Anion Gap 8.2 mmol/L (4.00-12.00); Calcium 9.5 mg/dL (8.7-10.3); Carbon Dioxide 28.8 mmol/L (21.6-31.8); Magnesium 1.9 mg/dL (1.5-2.4); Phosphorus 3.5 mg/dL (2.4-5.1)
== END | disposition home or self-care (01) ==
LOC: LABWHC1 11:48
PROVIDERS: ATTEND Internal Medicine Nephrology
DX: N39.0 Urinary tract infection, site not specified (principal); M10.9 Gout, unspecified; E21.3 Hyperparathyroidism, unspecified; N25.89 Other disorders resulting from impaired renal tubular function; E55.9 Vitamin D deficiency, unspecified; D64.9 Anemia, unspecified
CPT/HCPCS: 36415; 80048; 81003; 82306; 82728; 83540; 83550; 83735; 83970; 84100; 84550; 85025

== ENCOUNTER → 2018-11-16 | Outpatient (CLI) | payer BC ==
[2018-11-16 17:31] LABS: Basophils # (A) 0.1 k/uL (0-0.2); Basophils % (A) 1 %; Eosinophils # (A) 0.3 k/uL (0-0.7); Eosinophils % (A) 4 %; HCT 39.6 % (34.0-46.0); HGB 12.2 gm/dL (11.4-16.0); Lymphocytes # (A) 2.4 k/uL (1.0-4.8); Lymphocytes % (A) 31 %; MCH 27.5 pg (25.0-35.0); MCHC 30.9 g/dL (31.0-37.0); Mean Platelet Volume 7.6; Monocytes # (A) 0.3 k/uL (0-1.0); Monocytes % (A) 4 %; Neutrophils # (A) 4.4 k/uL (1.3-7.7); Neutrophils % (A) 58 %; Platelet Count 338 k/uL (150-450); RBC 4.45 m/uL (3.80-5.40); RDW 13.6 % (11.5-15.5); WBC 7.6 k/uL (3.8-10.6)
[2018-11-16 18:18] LABS: Erythrocyte Sedimentation Rate 18 mm/hr (0-20)
== END | disposition home or self-care (01) ==
LOC: LABWHC1 16:36
PROVIDERS: ATTEND Physical Medicine & Rehabilitation
DX: M47.812 Spondylosis without myelopathy or radiculopathy, cervical region (principal); M50.121 Cervical disc disorder at C4-C5 level with radiculopathy; M54.5 Low back pain; M47.816 Spondylosis without myelopathy or radiculopathy, lumbar region; M51.36 Other intervertebral disc degeneration, lumbar region; M25.511 Pain in right shoulder; M25.512 Pain in left shoulder
CPT/HCPCS: 36415; 85025; 85652; 86140

== ENCOUNTER → 2019-01-27 | Outpatient (CLI) | payer BC ==
[2019-01-27 15:23] LABS: Appearance,Urine Clear (Clear); Bilirubin,Urine Negative (Negative); Blood,Urine Negative (Negative); Color,Urine Light Yellow; Glucose,Urine (UA) Negative (Negative); Ketones,Urine Negative (Negative); Leukocyte Esterase,Urine Negative (Negative); Nitrite,Urine Negative (Negative); Protein,Urine Negative (Negative); Urobilinogen,Urine <2.0 mg/dL (<2.0)
[2019-01-27 15:26] LABS: Basophils % (A) 0 %; Eosinophils # (A) 0.1 k/uL (0-0.7); Eosinophils % (A) 1 %; HCT 42.5 % (34.0-46.0); HGB 13.7 gm/dL (11.4-16.0); Lymphocytes # (A) 1.2 k/uL (1.0-4.8); Lymphocytes % (A) 8 %; MCHC 32.2 g/dL (31.0-37.0); MCV 89.9 fL (80.0-100.0); Mean Platelet Volume 6.7; Monocytes # (A) 0.3 k/uL (0-1.0); Monocytes % (A) 2 %; Neutrophils # (A) 12.9 k/uL (1.3-7.7); Neutrophils % (A) 88 %; Platelet Count 235 k/uL (150-450); RBC 4.73 m/uL (3.80-5.40); RDW 14.4 % (11.5-15.5); WBC 14.7 k/uL (3.8-10.6)
[2019-01-28 01:56] LABS: Iron Saturation 40.38 (12.00-45.00)
[2019-01-28 02:00] LABS: African American GFR (CKD) 78.9 (60.0-200.0); Anion Gap 10.4 mmol/L (4.00-12.00); BUN/Creat Ratio 23.33 Ratio (12.00-20.00); Calcium 9.4 mg/dL (8.7-10.3); Carbon Dioxide 26.6 mmol/L (21.6-31.8); Magnesium 1.8 mg/dL (1.5-2.4); Phosphorus 3.4 mg/dL (2.4-5.1); Potassium 3.9 mmol/L (3.5-5.5)
[2019-01-28 02:04] LABS: Ferritin 67.4 ng/mL (10.0-291.0)
[2019-01-28 02:12] LABS: Uric Acid 6.2 mg/dL (2.9-7.7)
== END | disposition home or self-care (01) ==
LOC: LABWHC1 14:42
PROVIDERS: ATTEND Internal Medicine Nephrology
DX: N25.89 Other disorders resulting from impaired renal tubular function (principal); D50.9 Iron deficiency anemia, unspecified; E55.9 Vitamin D deficiency, unspecified; N25.81 Secondary hyperparathyroidism of renal origin; M10.9 Gout, unspecified; N39.0 Urinary tract infection, site not specified; E83.59 Other disorders of calcium metabolism
CPT/HCPCS: 36415; 80048; 81003; 82728; 83540; 83550; 83735; 83970; 84100; 84550; 85025

== ENCOUNTER → 2019-02-25 | Outpatient (CLI) | payer BC ==
--- NOTE | 2019-02-25 15:26 | US ---
EXAMINATION TYPE: US kidneys/renal and bladder DATE OF EXAM: 02/25/2019 COMPARISON: us 07/24/2016 CLINICAL HISTORY: N28.1 cyst of left kidney. EXAM MEASUREMENTS: Right Kidney: 10.9 x 3.8 x 4.4 cm Left Kidney: 10.3 x 5.6 x 5.0 cm Right Kidney: multiple echogenic foci scattered throughout, possible kidney stones versus prominent r enal sinus fat, cyst measuring 1.5 x 0.9 x 1.0cm Left Kidney: 2 cysts noted, measuring 1.3 x 1.3 x 1.3cm, and 1.3 x 1.3 x 1.3cm, multiple echogenic fo ci scattered throughout, possible kidney stones versus prominent renal sinus fat, largest measuring 0 .3 x 0.3 x 0.4cm Bladder: Anechoic Bilateral Jets seen: Yes Normal Post Void Residual: Yes There is no evidence for hydronephrosis at this point in time. No definitive nephrolithiasis is seen . No suspicious masses are identified. The urinary bladder is anechoic. Bilateral ureteral jets ar e seen. IMPRESSION: Hyperechoic renal sinus bilaterally that limits evaluation for small calculi. No hydronep hrosis of either kidney. Mild cortical renal thinning bilaterally suggestive of medical renal disease . Benign-appearing left renal cysts are again noted.
== END | disposition home or self-care (01) ==
LOC: RADUSWWP 14:09
PROVIDERS: ATTEND Internal Medicine Nephrology
DX: N28.1 Cyst of kidney, acquired (principal); N28.89 Other specified disorders of kidney and ureter
CPT/HCPCS: 76770

== ENCOUNTER → 2019-03-14 | Outpatient (CLI) | payer BC ==
--- NOTE | 2019-03-15 04:23 | BD ---
EXAMINATION TYPE: Axial Bone Density DATE OF EXAM: 03/14/2019 COMPARISON: NONE CLINICAL HISTORY: 63-year-old female postmenopausal screening Height: 67 IN Weight: 154 LBS FRAX RISK QUESTIONS: Family History (Parent hip fracture): YES MOTHER Glucocorticoids (More than 3mos): YES 7 MG/DAY OF PREDNISONE SINCE NOVEMBER 12 (Ex: prednisone, prednisolone, methylprednisolone, dexamethasone, and hydrocortisone). History of Fracture in Adulthood: YES FOOT AGE 54 Secondary Osteoporosis: 4. Malnutrition: YES IN HER 20'S ANOREXIA RISK FACTORS HISTORY OF: History of Wrist Fracture: YES LEFT When: AGE 26 Family History of Osteoporosis: YES MOTHER Active: YES Diet low in dairy products/other sources of calcium: YES Postmenopausal woman: AGE 58 MEDICATIONS: Prednisone or other steroids: YES 7 MG/DAY SINCE NOVEMBER 12 Additional Medications: VIT D, PREDNISONE 7 MG/DAY, OPSUMIT,SILDENFIL, POTASSIUM CITRATE, IRON, GABAP ENTIN, TRAMADOL EXAM MEASUREMENTS: Bone mineral densitometry was performed using the [employer] System. Bone mineral density as measured about the Lumbar spine is: ----- L1-L4(G/cm2): 0.853 T Score Values are as follows: ----- L2: -2.8 ----- L3: -2.3 ----- L4: -3.3 ----- L1-L4: -2.7 Bone mineral density has: Decreased -0.8% since study of: 06/20/2015 Bone mineral density about the R hip (g/cm2): 0.663 Bone mineral density about the L hip (g/cm2): 0.682 T Score values are as follows: -----R Neck: -2.7 -----L Neck: -2.6 -----R Total: -2.4 -----L Total: -2.4 Bone mineral density has: Increased 3.1% since study of: 06/20/2015 IMPRESSION: Osteoporosis (T Score less than -2.5). There is increased fracture risk and therapy is usually indicated based on age. Re-Screen 1-2 years. NOTE: T-SCORE=SD OF THE YOUNG ADULT MEAN.
== END ==
LOC: RADBDWWP 07:00
PROVIDERS: ATTEND Internal Medicine
DX: M81.0 Age-related osteoporosis without current pathological fracture (principal)
CPT/HCPCS: 77080

== ENCOUNTER → 2019-03-14 | Outpatient (CLI) | payer BC ==
--- NOTE | 2019-03-15 09:37 | MM ---
Reason for exam: screening (asymptomatic). Last mammogram was performed 1 year and 5 months ago. History: Patient is postmenopausal. Family history of breast cancer in paternal aunt at age 50. Physical Findings: A clinical breast exam by your physician is recommended on an annual basis and results should be correlated with mammographic findings. MG 3D Screening Mammo W/Cad Bilateral CC and MLO view(s) were taken. Prior study comparison: September 30, 2017, bilateral MG 3d screening mammo w/cad. September 02, 2016, bilateral MG 3d screening mammo w/cad. The breast tissue is heterogeneously dense. This may lower the sensitivity of mammography. No suspicious abnormality. No significant changes when compared with prior studies. ASSESSMENT: Negative, BI-RAD 1 RECOMMENDATION: Routine screening mammogram of both breasts in 1 year.
== END | disposition home or self-care (01) ==
LOC: RADMAMWWP 06:58
PROVIDERS: ATTEND Obstetrics & Gynecology
DX: Z12.31 Encounter for screening mammogram for malignant neoplasm of breast (principal); Z80.3 Family history of malignant neoplasm of breast
CPT/HCPCS: 77063; 77067

== ENCOUNTER → 2019-04-15 | Outpatient (CLI) | payer BC ==
--- NOTE | 2019-04-21 12:45 | HM ---
HOLTER MONITOR REPORT Patient was monitored for 24 hours. Baseline rhythm is a sinus mechanism with normal conduction. The average rate 81 beats per minute, minimum 64, maximum 108 beats per minute. Ventricular ectopic activity was present in the form of rare single PVCs. Supraventricular ectopic activity was present in the form of rare single PACs. No diary was available. CONCLUSION: 1. Sinus mechanism baseline rhythm. 2. Rare ventricular ectopic activity. 3. Rare supraventricular ectopic activity. 4. No diary was available. MMODL / IJN: [id number] /
== END | disposition home or self-care (01) ==
LOC: RADECHMAIN 11:59
PROVIDERS: ATTEND Internal Medicine
DX: I49.3 Ventricular premature depolarization (principal)
CPT/HCPCS: 93225; 93226

== ENCOUNTER → 2019-05-16 | Outpatient (CLI) | payer BC ==
[2019-05-16 15:12] LABS: Basophils # (A) 0.1 k/uL (0-0.2); Basophils % (A) 1 %; Eosinophils # (A) 0.1 k/uL (0-0.7); Eosinophils % (A) 1 %; HCT 41.3 % (34.0-46.0); HGB 13.2 gm/dL (11.4-16.0); Lymphocytes # (A) 1.3 k/uL (1.0-4.8); Lymphocytes % (A) 18 %; MCH 29.6 pg (25.0-35.0); MCHC 31.9 g/dL (31.0-37.0); MCV 92.8 fL (80.0-100.0); Mean Platelet Volume 8.3; Monocytes # (A) 0.2 k/uL (0-1.0); Monocytes % (A) 3 %; Neutrophils # (A) 5.1 k/uL (1.3-7.7); Neutrophils % (A) 75 %; Platelet Count 203 k/uL (150-450); RBC 4.46 m/uL (3.80-5.40); RDW 12.8 % (11.5-15.5); WBC 6.8 k/uL (3.8-10.6)
[2019-05-16 21:42] LABS: African American GFR (CKD) 68.9 (60.0-200.0); Albumin 4.6 g/dL (3.80-4.90); Albumin/Globulin Ratio 3.29 (1.60-3.17); Anion Gap 10.9 mmol/L (4.00-12.00); Calcium 9.7 mg/dL (8.7-10.3); Carbon Dioxide 28.1 mmol/L (21.6-31.8); Globulin 1.4 g/dL (1.6-3.3); Non-African American GFR(CKD) 59.5 (60.0-200.0); Potassium 4.5 mmol/L (3.5-5.5); Total Bilirubin 0.5 mg/dL (0.2-1.2)
[2019-05-16 22:19] LABS: Cancer Antigen 125 4.8 U/mL (0.0-30.1)
== END | disposition home or self-care (01) ==
LOC: LABWHC1 13:34
PROVIDERS: ATTEND Obstetrics & Gynecology
DX: C54.1 Malignant neoplasm of endometrium (principal)
CPT/HCPCS: 36415; 80053; 85025; 86304

== ENCOUNTER → 2019-05-19 | Outpatient (CLI) | payer BC ==
--- NOTE | 2019-05-20 07:59 | CT ---
EXAMINATION TYPE: CT ChestAbdPelvis w con DATE OF EXAM: 05/19/2019 COMPARISON: 05/18/2016 HISTORY: Endometrial cancer. Post menopausal vaginal bleeding. CT DLP: 814.5 mGycm CONTRAST: CT scan of the chest, abdomen and pelvis is performed with Oral Contrast and with IV Contrast, patien t injected with 80ml mL of Isovue 300. CT Chest: LUNGS: The lungs are clear and free of infiltrate or atelectasis. No pulmonary nodule or mass is det ected. No pleural effusion or CT evidence of interstitial lung disease. MEDIASTINUM: Thoracic aorta is of normal caliber. The heart is not enlarged. No evidence for media stinal mass or adenopathy. HILAR STRUCTURES: No evidence for mass. No hilar adenopathy is appreciated. OTHER: Expansile lesion left rib #12 has a chronic appearance may reflect fibrous dysplasia or other lesion. No additional rib lesions are seen.. CONTRAST CT ABDOMEN AND PELVIS FINDINGS: LIVER/GB: Renal cystic changes left hepatic lobe measuring up to 8.7 mm. No solid hepatic lesions seen. Changes of cholecystectomy. Biliary tree is of normal caliber. PANCREAS: No inflammation. No distinct mass. SPLEEN: No splenic enlargement. No lesion seen. ADRENALS: No nodule. No thickening. KIDNEYS/BLADDER: No hydronephrosis. Bilateral nonobstructing nephrolithiasis. 1 cm simple cyst lower pole left kidney. Additional 1 cm cyst of the mid to upper pole left kidney. No solid renal lesions identified. BOWEL: Normal appendix. Normal bowel caliber. No inflammation. GENITAL ORGANS: The uterus is not enlarged. There is a thickened endometrium consistent with the prov ided history. Right ovarian cyst suggested measuring 1.2 cm. Left ovary is unremarkable. No evidence for free fluid. LYMPH NODES: No greater than 1cm abdominal or pelvic lymph nodes are appreciated. AORTA: No significant abnormality. OSSEOUS STRUCTURES: No significant abnormality is seen. OTHER: No significant additional abnormality is seen. IMPRESSION: 1. There is a thickened endometrium consistent with the provided history. 2. No evidence for metastatic disease. 3. Expansile left rib 4. Lesion is nonspecific. Correlate for fibrous dysplasia. 5. Nonobstructing nephrolithiasis.
== END | disposition home or self-care (01) ==
LOC: RADCTMAIN 14:09
PROVIDERS: ATTEND Obstetrics & Gynecology
DX: N20.0 Calculus of kidney (principal); M89.8X8 Other specified disorders of bone, other site; C54.1 Malignant neoplasm of endometrium
CPT/HCPCS: 71260; 74177; Q9967

== ENCOUNTER → 2019-05-19 | Outpatient (CLI) | payer BC ==
[~2019-05-19] MED LIST changes: -LACTATED RINGERS 1,000 ML IV SCH; -LIDOCAINE 1% 20 ML VIAL (10MG/ML) FOR IV START INTRADERMA PRN; -Pre Op ABX Message 1 EACH MISC MISCELLANE ONE; +SODIUM CHLORIDE 0.9% 500 ML 500 ML in EMPTY BAG 1 BAG IV PRN
[2019-05-19 14:00] VITALS: BP 110/71; PULSE 72; RESP 18; TEMP 98.4
== END | disposition home or self-care (01) ==
LOC: PROCWHC3 13:27
PROVIDERS: ATTEND Internal Medicine Nephrology
DX: N28.1 Cyst of kidney, acquired (principal); N25.89 Other disorders resulting from impaired renal tubular function
CPT/HCPCS: 96360

== ENCOUNTER → 2019-11-28 | Outpatient (CLI) | payer BC ==
--- NOTE | 2019-11-28 14:00 | US ---
EXAMINATION TYPE: US kidneys/renal and bladder DATE OF EXAM: 11/28/2019 COMPARISON: Renal ultrasound February 25, [address] May 19, 2019 CLINICAL HISTORY: Cyst of left kidney N28.1. h/o cysts, no symptoms, h/o uterine CA this year EXAM MEASUREMENTS: Right Kidney: 10.6 x 4.8 x 4.5 cm Left Kidney: 9.9 x 4.4 x 4.9 cm Right Kidney: cyst mid pole = 1.5 x 1.2 x 1.0cm Left Kidney: cyst mid pole = 1.5 x 1.3 x 1.3cm Bladder: wnl Bilateral Jets seen: no When scanning right kidney adjacent liver is heterogeneously hyperechoic consistent with diffuse fatt y infiltration. Some increased cortical echogenicity is present. Technologist mcelroy a single small th in-walled cysts bilaterally on current study. Bladder is satisfactorily distended. IMPRESSION: Redemonstration of simple thin-walled cysts bilaterally. No hydronephrosis is noted bilat erally.
== END ==
LOC: RADUSWWP 12:13
PROVIDERS: ATTEND Internal Medicine Nephrology
DX: N28.1 Cyst of kidney, acquired (principal)
CPT/HCPCS: 76770

== ENCOUNTER → 2020-01-09 | Outpatient (CLI) | payer BC ==
--- NOTE | 2020-01-10 12:46 | MM ---
Reason for exam: clinical finding. Last mammogram was performed 10 months ago. History: Patient is postmenopausal. Family history of breast cancer in paternal aunt at age 50. Indicated problem(s): pain in the right breast. Physical Findings: Nurse did not find any significant physical abnormalities on exam. MG 3D Diag Mammo W/Cad LITA Bilateral CC, MLO, and XCCL view(s) were taken. Prior study comparison: March 14, 2019, bilateral MG 3d screening mammo w/cad. September 30, 2017, bilateral MG 3d screening mammo w/cad. The breast tissue is heterogeneously dense. This may lower the sensitivity of mammography. Asymmetric breast tissue in the left breast, stable, upper aspect. There is no discrete abnormality. These results were verbally communicated with the patient and result sheet given to the patient on 01/09/20. ASSESSMENT: Benign, BI-RAD 2 RECOMMENDATION: Routine screening mammogram of both breasts in 1 year. Manage on a clinical basis with regard to right diffuse pain.
== END | disposition home or self-care (01) ==
LOC: RADMAMWWP 14:13
PROVIDERS: ATTEND Obstetrics & Gynecology
DX: N64.4 Mastodynia (principal); Z85.42 Personal history of malignant neoplasm of other parts of uterus
CPT/HCPCS: 77062; 77066

== ENCOUNTER → 2020-01-20 | Outpatient (CLI) | payer BC ==
--- NOTE | 2020-01-20 15:25 | XR ---
EXAMINATION TYPE: XR chest 2V DATE OF EXAM: 01/20/2020 COMPARISON: 07/13/2015 INDICATION: Short of breath, productive cough x2 months TECHNIQUE: Frontal and lateral views of the chest are obtained. FINDINGS: The heart size is normal. The pulmonary vasculature is normal. The lungs are clear. IMPRESSION: 1. No acute pulmonary process.
== END | disposition home or self-care (01) ==
LOC: RADXRMAIN 15:03
PROVIDERS: ATTEND Internal Medicine
DX: R06.02 Shortness of breath (principal)
CPT/HCPCS: 71046

== ENCOUNTER → 2020-01-25 | Outpatient (CLI) | payer BC ==
--- NOTE | 2020-01-25 13:24 | CT ---
EXAMINATION TYPE: CT ChestAbdPelvis wo con DATE OF EXAM: 01/25/2020 COMPARISON: Most recent CT May 19, 2019 HISTORY: Endometrial Cancer. History of renal tubular acidosis CT DLP: 1298 mGycm. Automated Exposure Control for Dose Reduction was Utilized. TECHNIQUE: CT scan of the thorax, abdomen and pelvis is performed with unremarkable without IV contrast. IV cont rast could not be given due to diminished renal function. FINDINGS: LUNGS: There are new nonspecific scattered centrilobular opacities bilaterally greatest involving joan ateral mid to lower lungs. There is new dominant 7 x 6 mm peripheral left lower lobe nodule image 48. No pleural effusion or pneumothorax seen bilaterally. MEDIASTINUM: There are no greater than 1 cm hilar or mediastinal lymph nodes. No cardiomegaly or pe ricardial effusion is seen. Persistent enlarged main pulmonary artery. LIVER/GB: Cholecystectomy clips redemonstrated. Scattered small thin-walled cysts throughout the live r redemonstrated. PANCREAS: No significant abnormality is seen. SPLEEN: No significant abnormality is seen. ADRENALS: No significant abnormality is seen. KIDNEYS: Multiple small nonobstructing bilateral renal calculi. No hydronephrosis or obstructing saloni l calculi. Small thin-walled cysts on prior study less well seen on current study due to lack of IV c ontrast. Scattered bilateral pelvic phleboliths. BOWEL: Normal contrast-filled appendix. Oral contrast reaches rectum. No suspicious small or large tom wel dilatation. GENITAL ORGANS: Uterus surgically absent on current study. LYMPH NODES: No greater than 1cm abdominal or pelvic lymph nodes are appreciated. OSSEOUS STRUCTURES: Persistent expansile left posterior third rib. OTHER: No significant additional abnormality is seen. IMPRESSION: Stable nonspecific expansile posterior left third rib. No new suspicious focal osseous le sions. Developing centrilobular lung nodules throughout the mid to lower lungs bilaterally. Differen tial includes infectious process, hypersensitivity pneumonitis,, developing metastatic disease not ex cluded. Correlate clinically. Short-term follow-up advised.
== END | disposition home or self-care (01) ==
LOC: RADCTMAIN 10:56
PROVIDERS: ATTEND Internal Medicine Hematology & Oncology
DX: R91.8 Other nonspecific abnormal finding of lung field (principal); C54.9 Malignant neoplasm of corpus uteri, unspecified; Z88.0 Allergy status to penicillin; Z88.1 Allergy status to other antibiotic agents; Z88.5 Allergy status to narcotic agent; Z88.6 Allergy status to analgesic agent
CPT/HCPCS: 71250; 74176

== ENCOUNTER → 2020-04-30 | Outpatient (CLI) | payer MEDICARE, BC ==
--- NOTE | 2020-04-30 15:30 | CT ---
EXAMINATION TYPE: CT ChestAbdPelvis wo con DATE OF EXAM: 04/30/2020 COMPARISON: Prior CT January 25, 2020 and older studies HISTORY: Endometrial ca, observe for mets CT DLP: 533.30 mGycm. Automated Exposure Control for Dose Reduction was Utilized. TECHNIQUE: CT scan of the thorax, abdomen and pelvis is performed with oral but without IV contrast. FINDINGS: LUNGS: There are new persistent nonspecific scattered centrilobular opacities bilaterally greatest in volving bilateral mid to lower lungs. Angela for technical differences fairly stable 7 x 7 mm periphe ral left lower lobe nodule image 48. No new nodules or masses. No pleural effusion or pneumothorax se en bilaterally. MEDIASTINUM: There are no greater than 1 cm hilar or mediastinal lymph nodes. Stable tiny pericardial effusion is seen. No cardiomegaly. Persistent enlarged main and right pulmonary arteries LIVER/GB: Cholecystectomy clips are redemonstrated. Stable subcentimeter low dense lesion left hepati c lobe axial image 57. Few additional smaller subcentimeter low dense lesions are stable. PANCREAS: No significant abnormality is seen. SPLEEN: No significant abnormality is seen. ADRENALS: No significant abnormality is seen. KIDNEYS: Scattered small nonobstructing calculi throughout bilateral kidneys. No hydronephrosis or ob structing ureteral calculi bilaterally BOWEL: Oral contrast reaches level of the splenic flexure. No suspicious small or large bowel dilatat ion. GENITAL ORGANS: Uterus is surgically absent. Scattered bilateral pelvic phleboliths are redemonstrate d. LYMPH NODES: No greater than 1cm abdominal or pelvic lymph nodes are appreciated. OSSEOUS STRUCTURES: Persistent expansile lytic left posterior lateral third rib lesion. No new suspic ious focal osseous lesions identified. OTHER: No significant additional abnormality is seen. IMPRESSION: Overall stable findings. No new or enlarging nodules or masses to suggest active neoplast ic progression.
== END | disposition home or self-care (01) ==
LOC: RADCTMAIN 13:05
PROVIDERS: ATTEND Internal Medicine Hematology & Oncology
DX: C54.9 Malignant neoplasm of corpus uteri, unspecified (principal); Z88.0 Allergy status to penicillin; Z88.2 Allergy status to sulfonamides; Z88.1 Allergy status to other antibiotic agents; Z88.8 Allergy status to other drugs, medicaments and biological substances
CPT/HCPCS: 71250; 74176

== ENCOUNTER 2020-05-02 09:07 | Day surgery (SDC) | payer MEDICARE, BC ==
[2020-04-25 14:23] VITALS: BMI 24.7
[~2020-05-02 09:07] MED LIST changes: +LACTATED RINGERS 1,000 ML IV SCH; +LIDOCAINE 1% (10MG/ML) FOR IV START INTRADERMA PRN; -SODIUM CHLORIDE 0.9% 500 ML 500 ML in EMPTY BAG 1 BAG IV PRN
[2020-05-02 09:29] VITALS: RESP 16; TEMP 98.1
[2020-05-02] MEDS ORDERED: PROPOFOL 10 MG/ML 20 ML VIAL IV ONE (10:34)
[2020-05-02] MEDS ORDERED: ONDANSETRON 4 MG/2 ML VIAL ONE (10:34)
--- NOTE | 2020-05-02 11:01 | P.PCN ---
Date of Procedure: 05/02/20 Procedure(s) Performed: BRIEF HISTORY: Patient is a 65-year-old pleasant female scheduled for an elective colonoscopy as a part of evaluation of prior history of colon polyps. Last colonoscopy was 5 years ago. PROCEDURE PERFORMED: Colonoscopy with snare polypectomy. PREOPERATIVE DIAGNOSIS: History of Polyps. IV sedation per Anesthesia. PROCEDURE: After informed consent was obtained, the patient, was brought into the endoscopy unit. IV sedation was administered by Anesthesia under continuous monitoring. Digital rectal examination was normal. Initially the Olympus CF-160 flexible video colonoscope was then inserted in the rectum, gradually advanced into the cecum without any difficulty. Careful examination was performed as the scope was gradually being withdrawn. Ileocecal valve and the appendiceal orifice were visualized and appeared normal. Prep was excellent. Mucosa of the cecum, ascending colon, appeared normal. In the transverse colon there was a 5 mm polyp that was removed by snare polypectomy. Rest of the transverse colon, descending colon, sigmoid colon, and rectum appeared normal. Retroflexion was performed in the rectum and grade 2 internal hemorrhoids were seen. The patient tolerated the procedure well. IMPRESSION: 5 mm transverse colon polyp status post snare polypectomy Grade 2 internal hemorrhoids Recommendations Findings were discussed with the patient as well as her family. She was advised to follow with the biopsy results. If the biopsy shows an adenoma she can have a repeat colonoscopy in 5 years.
[2020-05-02 11:20] VITALS: BP 97/65; PULSE 69
== END 2020-05-02 11:43 | disposition home or self-care (01) ==
LOC: ORWHC2ENDO 09:07
PROVIDERS: ATTEND Internal Medicine Gastroenterology
DX: Z12.11 Encounter for screening for malignant neoplasm of colon (principal); D12.3 Benign neoplasm of transverse colon; K64.1 Second degree hemorrhoids; Z86.010 Personal history of colon polyps; E78.5 Hyperlipidemia, unspecified; G43.909 Migraine, unspecified, not intractable, without status migrainosus; K21.9 Gastro-esophageal reflux disease without esophagitis; M35.3 Polymyalgia rheumatica; Z88.2 Allergy status to sulfonamides; Z88.0 Allergy status to penicillin; Z88.5 Allergy status to narcotic agent; Z88.8 Allergy status to other drugs, medicaments and biological substances; Z91.048 Other nonmedicinal substance allergy status; Z88.1 Allergy status to other antibiotic agents; Z87.442 Personal history of urinary calculi; Z90.710 Acquired absence of both cervix and uterus; Z85.42 Personal history of malignant neoplasm of other parts of uterus; Z79.899 Other long term (current) drug therapy
CPT/HCPCS: 88305; 45385; J2405; J2704

== ENCOUNTER → 2020-07-25 | Outpatient (CLI) | payer MEDICARE, BC ==
--- NOTE | 2020-07-25 11:07 | CT ---
EXAMINATION TYPE: CT chest wo con DATE OF EXAM: 07/25/2020 COMPARISON: 04/30/2020 HISTORY: follow up to lung nodule, history of uterine CA CT DLP: 158.[address] of the chest was performed with lung and mediastinal window settings submitted. The la ck of contrast limits evaluation of the vascular, mediastinal and parenchymal structures including th e upper abdomen. LUNGS: Centrilobular opacities which are nonspecific within the mid and lower lung zones persist. Cor relate clinically. Stable 7 x 7 mm peripheral left lower lobe nodule image 50. No new nodules or mass es. No pleural effusion or pneumothorax seen bilaterally. MEDIASTINUM/TIERA: Thoracic aorta is of normal caliber with limited evaluation given lack of contrast . The heart is not enlarged. No evidence for mediastinal mass. No lymph nodes greater than 1cm. UPPER ABDOMEN: No significant abnormality is seen. OTHER: Stable expansile left rib lesion. IMPRESSION: 1. Stable left lower lobe pulmonary nodule. No new nodules seen. 2. Centrilobular opacities are nonspecific and do persist. Correlate clinically.
== END | disposition home or self-care (01) ==
LOC: RADCTMAIN 09:20
PROVIDERS: ATTEND Internal Medicine Hematology & Oncology
DX: R91.1 Solitary pulmonary nodule (principal); R91.8 Other nonspecific abnormal finding of lung field; Z85.42 Personal history of malignant neoplasm of other parts of uterus
CPT/HCPCS: 71250

== ENCOUNTER → 2020-09-14 | Outpatient (CLI) | payer MEDICARE, BC ==
[~2020-09-14] MED LIST changes: +DENOSUMAB 60 MG/ML 1 ML SYRINGE SQ ONE; -LACTATED RINGERS 1,000 ML IV SCH; -LIDOCAINE 1% (10MG/ML) FOR IV START INTRADERMA PRN
[2020-09-14 11:21] VITALS: BP 108/76; PULSE 73; RESP 16; TEMP 99.2
== END ==
LOC: PROCWHC3 11:07
PROVIDERS: ATTEND Obstetrics & Gynecology
DX: M81.0 Age-related osteoporosis without current pathological fracture (principal); Z91.048 Other nonmedicinal substance allergy status; Z88.6 Allergy status to analgesic agent; Z88.0 Allergy status to penicillin; Z88.2 Allergy status to sulfonamides; Z88.1 Allergy status to other antibiotic agents; Z87.891 Personal history of nicotine dependence
CPT/HCPCS: 96372; J0897

== ENCOUNTER → 2021-01-21 | Outpatient (CLI) | payer MEDICARE, BC ==
--- NOTE | 2021-01-21 13:24 | CT ---
EXAMINATION TYPE: CT ChestAbdPelvis wo con DATE OF EXAM: 01/21/2021 COMPARISON: CT April 30, 2020 HISTORY: Endometrial cancer CT DLP: 378.8 mGycm. Automated Exposure Control for Dose Reduction was Utilized. TECHNIQUE: CT scan of the thorax, abdomen and pelvis is performed with oral but without IV contrast. FINDINGS: LUNGS: Scattered centrilobular opacities bilaterally are improved from prior. For reference there is residual 6 mm one noted axial image 44 laterally in the right lower lobe. No enlarging nodules or mas ses. No pleural effusion or pneumothorax seen bilaterally. MEDIASTINUM: There are no greater than 1 cm hilar or mediastinal lymph nodes. Stable tiny pericardial effusion is redemonstrated. No cardiomegaly. Persistent enlarged main and right pulmonary arteries c onsistent with underlying pulmonary artery hypertension LIVER/GB: Cholecystectomy clips are redemonstrated. Stable subcentimeter low dense lesion left hepati c lobe axial image 54. Few additional smaller subcentimeter low dense lesions are stable. PANCREAS: No significant abnormality is seen. SPLEEN: No significant abnormality is seen. ADRENALS: No significant abnormality is seen. KIDNEYS: Scattered small nonobstructing calculi throughout bilateral kidneys are redemonstrated. No h ydronephrosis or obstructing ureteral calculi bilaterally BOWEL: Oral contrast reaches level of the mid transverse colon on current study. No suspicious small or large bowel dilatation. GENITAL ORGANS: Uterus is surgically absent. Scattered bilateral pelvic phleboliths are redemonstrate d. LYMPH NODES: No greater than 1cm abdominal or pelvic lymph nodes are appreciated. OSSEOUS STRUCTURES: Persistent expansile left posterior lateral third rib lesion. No new suspicious f ocal osseous lesions identified. OTHER: No significant additional abnormality is seen. IMPRESSION: Improving bilateral nonspecific centrilobular opacities. No new or enlarging nodules or m asses to suggest active neoplastic progression.
== END | disposition home or self-care (01) ==
LOC: RADCTMAIN 10:59
PROVIDERS: ATTEND Internal Medicine Hematology & Oncology
DX: R91.8 Other nonspecific abnormal finding of lung field (principal); Z85.42 Personal history of malignant neoplasm of other parts of uterus; Z90.710 Acquired absence of both cervix and uterus
CPT/HCPCS: 71250; 74176

== ENCOUNTER → 2021-03-06 | Outpatient (CLI) | payer MEDICARE, BC ==
--- NOTE | 2021-03-08 13:45 | MM ---
Reason for exam: screening (asymptomatic). Last mammogram was performed 1 year and 2 months ago. History: Patient is postmenopausal and has history of other cancer at age 64. Family history of breast cancer in paternal aunt at age 50. Physical Findings: A clinical breast exam by your physician is recommended on an annual basis and results should be correlated with mammographic findings. MG 3D Screening Mammo W/Cad Bilateral CC and MLO view(s) were taken. Prior study comparison: January 09, 2020, bilateral MG 3d diag mammo w/cad LITA. March 14, 2019, bilateral MG 3d screening mammo w/cad. The breast tissue is heterogeneously dense. This may lower the sensitivity of mammography. There is chronic nodularity in the left breast. No significant changes when compared with prior studies. ASSESSMENT: Benign, BI-RAD 2 RECOMMENDATION: Routine screening mammogram of both breasts in 1 year.
== END | disposition home or self-care (01) ==
LOC: RADMAMWWP 13:40
PROVIDERS: ATTEND Obstetrics & Gynecology
DX: Z12.31 Encounter for screening mammogram for malignant neoplasm of breast (principal); Z80.3 Family history of malignant neoplasm of breast; Z78.0 Asymptomatic menopausal state
CPT/HCPCS: 77063; 77067

== ENCOUNTER 2021-10-17 10:51 | Inpatient (IN) | payer MEDICARE, BC ==
[2021-10-17] MEDS ORDERED: ONDANSETRON 4 MG/2 ML VIAL IVP STA (11:30)
[2021-10-17] MEDS ORDERED: SODIUM CHLORIDE 0.9% 1,000 ML IV STA (11:30)
[2021-10-17] MEDS ORDERED: fentaNYL (PF) 50 MCG/ML 2 ML AMP IVP STA (11:46)
[2021-10-17 12:27] LABS: Basophils % (A) 0 %; Eosinophils # (A) 0.1 k/uL (0-0.7); Eosinophils % (A) 1 %; HGB 14.2 gm/dL (11.4-16.0); Lymphocytes % (A) 14 %; MCHC 33.8 g/dL (31.0-37.0); MCV 91.7 fL (80.0-100.0); Mean Platelet Volume 8.4; Monocytes # (A) 0.3 k/uL (0-1.0); Monocytes % (A) 4 %; Neutrophils # (A) 5.7 k/uL (1.3-7.7); Neutrophils % (A) 79 %; Platelet Count 241 k/uL (150-450); RBC 4.58 m/uL (3.80-5.40); WBC 7.2 k/uL (3.8-10.6)
[2021-10-17 12:41] LABS: Albumin 5.2 g/dL (3.5-5.0); Calcium 10.6 mg/dL (8.4-10.2); Total Bilirubin 0.9 mg/dL (0.2-1.3); Total Protein 7.8 g/dL (6.3-8.2)
[2021-10-17 12:58] LABS: INR 0.9 (<1.2); Partial Thromboplastin Time 22.9 sec (22.0-30.0); Prothrombin Time 9.6 sec (9.0-12.0)
--- NOTE | 2021-10-17 13:57 | CT ---
EXAMINATION TYPE: CT abdomen pelvis wo con DATE OF EXAM: 10/17/2021 COMPARISON: CT dated 08/01/2021 HISTORY: Flank pain, Kidney stone suspected CT DLP: 466.9 mGycm Automated exposure control for dose reduction was used. TECHNIQUE: Helical acquisition of images was performed from the lung bases through the pelvis. FINDINGS: LUNG BASES: Suspected COPD changes. Stable left basal elongated pulmonary nodule. LIVER/GB: Stable scattered hepatic cysts. Previous cholecystectomy. PANCREAS: No significant abnormality is seen. SPLEEN: No significant abnormality is seen. ADRENALS: No significant abnormality is seen. KIDNEYS: Multiple variable-sized bilateral nonobstructing renal calculi measuring up to 3 mm on the r ight side and 4 mm on the left side. Suspected bilateral renal cysts, suboptimally assessed by this n onenhanced CT scan. FREE AIR: No free air is visualized RETROPERITONEAL ADENOPATHY: None visualized REPRODUCTIVE ORGANS: Previous hysterectomy. No gross adnexal mass. URINARY BLADDER: No significant abnormality is seen. PELVIC ADENOPATHY: None visualized. OSSEOUS STRUCTURES: No aggressive bone lesion. BOWEL: Unremarkable stomach and duodenum. Dilated jejunal loops measuring up to 3.8 cm with apparent transition seen in the lower abdomen (coronal image 55, series 202). This is suboptimally assessed b y this nonenhanced CT scan. The distal small bowel loops are not dilated. Moderate fecal loading of t he colon. Normal appendix. OTHER: Arterial atherosclerotic calcifications. No sizable ascites. IMPRESSION: Bilateral nonobstructing renal calculi. No hydroureter or hydronephrosis. Signs of acute mechanical small bowel obstruction with suspected transition point in the lower abdome n, possibly due to adhesion as detailed above. This is suboptimally assessed by this nonenhanced CT s can. No danielle pneumatosis, free peritoneal air or portal venous gas. Bowel ischemia cannot be exclude d. Recommend clinical correlation and surgical consultation. Other findings as described above.
[2021-10-17 14:09] LABS: Appearance,Urine Clear (Clear); Bilirubin,Urine Negative (Negative); Blood,Urine Negative (Negative); Color,Urine Yellow; Glucose,Urine (UA) Negative (Negative); Ketones,Urine Trace (Negative); Leukocyte Esterase,Urine Negative (Negative); Nitrite,Urine Negative (Negative); PH, Urine 8.5 (5.0-8.0); Protein,Urine Trace (Negative); Specific Gravity,Urine 1.015 (1.001-1.035)
--- NOTE | 2021-10-17 14:50 | ED ---
Abdominal Pain HPI - General Chief Complaint: Abdominal Pain Stated Complaint: Possible Kidney Stone Time Seen by Provider: 10/17/21 11:20 Source: patient Mode of arrival: wheelchair Limitations: no limitations - History of Present Illness Initial Comments: Patient is a 66-year-old female with history of endometrial cancer presenting with chief complaint of abdominal pain and flank pain. Pain started last night, it began as a generalized abdominal pain, patient thought she was having gas pains, and described as a very intense cramping over her whole abdomen. After a while with it started radiating to the left flank. This was accompanied by nausea and vomiting. Patient has been having regular bowel movements, last bowel movement was this morning. She denies any diarrhea, hematochezia, melena. Patient has a known history of kidney stones. Denies any dysuria, hematuria, urgency, frequency. Denies any chest pain, shortness of breath, fever, chills, weakness, headache, numbness, tingling. - Related Data Home Medications Medication Instructions Recorded Confirmed Macitentan [Opsumit] 10 mg PO DAILY 09/22/13 10/17/21 Potassium Citrate [Potassium 20 meq PO DAILY 08/07/16 10/17/21 Citrate ER] Potassium Citrate [Potassium 10 meq PO HS 06/12/18 10/17/21 Citrate ER] Sildenafil [Revatio] 20 mg PO TID 06/12/18 10/17/21 Ergocalciferol [Vitamin D2 50,000 unit PO WE 05/19/19 10/17/21 (DRISDOL)] Omeprazole [PriLOSEC] 40 mg PO DAILY 04/25/20 10/17/21 ALPRAZolam [Xanax] 0.25 mg PO DAILY PRN 10/17/21 10/17/21 Ezetimibe [Zetia] 10 mg PO DAILY 10/17/21 10/17/21 FLUoxetine HCL [PROzac] 40 mg PO DAILY 10/17/21 10/17/21 Gabapentin 600 mg PO TID 10/17/21 10/17/21 Ondansetron Odt [Zofran Odt] 4 mg PO Q8H PRN 10/17/21 10/17/21 estradioL [Imvexxy] 4 mcg VAGINAL TUFR 10/17/21 10/17/21 Allergies Allergy/AdvReac Type Severity Reaction Status Date / Time hydrocodone bitartrate Allergy Severe Nausea & Verified 10/17/21 12:19 [From Vicodin] Vomiting adhesive tape Allergy Rash/Hives Verified 10/17/21 12:19 levofloxacin [From Levaquin] Allergy Unknown Verified 10/17/21 12:19 Penicillins Allergy Rash/Hives Verified 10/17/21 12:19 Quinolones Allergy AFFECTS Verified 10/17/21 12:19 HEART RHYTHM Sulfa (Sulfonamide Allergy Rash/Hives Verified 10/17/21 12:19 Antibiotics) Review of Systems ROS Statement: Those systems with pertinent positive or pertinent negative responses have been documented in the HPI. ROS Other: All systems not noted in ROS Statement are negative. 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 MIGRAINE HEADACHE, UTERINE CANCER, POLY MYALGIA RHEUMATICA, History of Any Multi-Drug Resistant Organisms: None Reported Past Surgical History: Section, Cholecystectomy, Hysterectomy, Orthopedic Surgery, Tonsillectomy Additional Past Surgical History / Comment(s): X 4, RT KNEE SURGERY, D & C , colonosopy and bilateral tubes in ears.LITHROTRIPSY Past Anesthesia/Blood Transfusion Reactions: Postoperative Nausea & Vomiting (PONV) Past Psychological History: Anxiety, Depression Smoking Status: Former smoker Past Alcohol Use History: None Reported Past Drug Use History: None Reported - Past Family History Mother Family Medical History: AFIB, CVA/TIA, Neurologic Disorder Additional Family Medical History / Comment(s): HX PARKINSON'S Father Family Medical History: Cancer, CVA/TIA Additional Family Medical History / Comment(s): HEART DISEASE , PACREAS-CANCER General Exam Limitations: no limitations General appearance: alert, in distress (in pain) Head exam: Present: atraumatic, normocephalic, normal inspection Eye exam: Present: normal appearance, EOMI. Absent: scleral icterus, periorbital swelling Neck exam: Present: normal inspection Respiratory exam: Present: normal lung sounds bilaterally. Absent: respiratory distress, wheezes, rales, rhonchi, stridor Cardiovascular Exam: Present: regular rate, normal rhythm, normal heart sounds. Absent: systolic murmur, diastolic murmur, rubs, gallop, clicks GI/Abdominal exam: Present: soft, tenderness (Diffuse). Absent: distended, guarding, rebound, rigid Back exam: Present: normal inspection. Absent: CVA tenderness (R), CVA tenderness (L) Neurological exam: Present: alert, oriented X3, CN II-XII intact Psychiatric exam: Present: normal affect, normal mood Skin exam: Present: warm, dry, intact, normal color. Absent: rash Course Vital Signs 10/17/21 10/17/21 10/17/21 11:15 14:30 16:00 Temperature 98.0 F Pulse Rate 92 67 68 Pulse Rate [ Pulse Oximetery ] Respiratory 18 18 18 Rate Blood Pressure 129/82 129/68 130/69 Blood Pressure [Left Arm] O2 Sat by Pulse 98 97 98 Oximetry 10/17/21 10/17/21 16:31 17:13 Temperature 98.2 F Pulse Rate 72 Pulse Rate [ 70 Pulse Oximetery ] Respiratory 16 18 Rate Blood Pressure 110/55 Blood Pressure 136/76 [Left Arm] O2 Sat by Pulse 97 96 Oximetry Medical Decision Making - Medical Decision Making Patient is a 66-year-old female presenting with chief complaint of abdominal pain. She has a history of renal tubular acidosis and kidney stones. Pain is associated with flank pain and nausea and vomiting. She has a history of 4 C- sections, cholecystectomy, and hysterectomy due to endometrial cancer. She has been having regular bowel movements. On examination patient is clearly in pain. There is pain on palpation of the abdomen, no guarding or rebound tenderness. Lab work is grossly unremarkable. CT of the abdomen and pelvis without contrast shows signs of acute mechanical small bowel obstruction with suspected transition point in the lower abdomen, possibly due to adhesions. There are also bilateral nonobstructing renal calculi, no hydroureter or hydronephrosis. I spoke with Dr. Man who agreed to admit the patient. Internal medicine was consulted. I discussed these findings and the plan with the patient, she is agreeable. I discussed this case with my attending Dr. Pacheco. - Lab Data Result diagrams: 10/17/21 12:17 10/17/21 12:17 Lab Results 10/17/21 10/17/21 10/17/21 Range/Units 12:17 12:17 12:17 WBC 7.2 (3.8-10.6) k/uL RBC 4.58 (3.80-5.40) m/uL Hgb 14.2 (11.4-16.0) gm/dL Hct 42.0 (34.0-46.0) % MCV 91.7 (80.0-100.0) fL MCH 31.0 (25.0-35.0) pg MCHC 33.8 (31.0-37.0) g/dL RDW 13.0 (11.5-15.5) % Plt Count 241 (150-450) k/uL MPV 8.4 Neutrophils % 79 % Lymphocytes % 14 % Monocytes % 4 % Eosinophils % 1 % Basophils % 0 % Neutrophils # 5.7 (1.3-7.7) k/uL Lymphocytes # 1.0 (1.0-4.8) k/uL Monocytes # 0.3 (0-1.0) k/uL Eosinophils # 0.1 (0-0.7) k/uL Basophils # 0.0 (0-0.2) k/uL PT 9.6 (9.0-12.0) sec INR 0.9 (<1.2) APTT 22.9 (22.0-30.0) sec Sodium 137 (137-145) mmol/L Potassium 4.0 (3.5-5.1) mmol/L Chloride 99 (98-107) mmol/L Carbon Dioxide 27 (22-30) mmol/L Anion Gap 11 mmol/L BUN 18 H (7-17) mg/dL Creatinine 0.86 (0.52-1.04) mg/dL Est GFR (CKD-EPI)AfAm 82 (>60 ml/min/1.73 sqM) Est GFR (CKD-EPI)NonAf 71 (>60 ml/min/1.73 sqM) Glucose 114 H (74-99) mg/dL Plasma Lactic Acid Iglesia (0.7-2.0) mmol/L Calcium 10.6 H (8.4-10.2) mg/dL Total Bilirubin 0.9 (0.2-1.3) mg/dL AST 26 (14-36) U/L ALT 16 (4-34) U/L Alkaline Phosphatase 119 (38-126) U/L Troponin I (0.000-0.034) ng/mL Total Protein 7.8 (6.3-8.2) g/dL Albumin 5.2 H (3.5-5.0) g/dL Amylase 72 (30-110) U/L Lipase 83 (23-300) U/L Urine Color Urine Appearance (Clear) Urine pH (5.0-8.0) Ur Specific Jeannette (1.001-1.035) Urine Protein (Negative) Urine Glucose (UA) (Negative) Urine Ketones (Negative) Urine Blood (Negative) Urine Nitrite (Negative) Urine Bilirubin (Negative) Urine Urobilinogen (<2.0) mg/dL Ur Leukocyte Esterase (Negative) 10/17/21 10/17/21 10/17/21 Range/Units 12:17 12:17 13:43 WBC (3.8-10.6) k/uL RBC (3.80-5.40) m/uL Hgb (11.4-16.0) gm/dL Hct (34.0-46.0) % MCV (80.0-100.0) fL MCH (25.0-35.0) pg MCHC (31.0-37.0) g/dL RDW (11.5-15.5) % Plt Count (150-450) k/uL MPV Neutrophils % % Lymphocytes % % Monocytes % % Eosinophils % % Basophils % % Neutrophils # (1.3-7.7) k/uL Lymphocytes # (1.0-4.8) k/uL Monocytes # (0-1.0) k/uL Eosinophils # (0-0.7) k/uL Basophils # (0-0.2) k/uL PT (9.0-12.0) sec INR (<1.2) APTT (22.0-30.0) sec Sodium (137-145) mmol/L Potassium (3.5-5.1) mmol/L Chloride (98-107) mmol/L Carbon Dioxide (22-30) mmol/L Anion Gap mmol/L BUN (7-17) mg/dL Creatinine (0.52-1.04) mg/dL Est GFR (CKD-EPI)AfAm (>60 ml/min/1.73 sqM) Est GFR (CKD-EPI)NonAf (>60 ml/min/1.73 sqM) Glucose (74-99) mg/dL Plasma Lactic Acid Iglesia 1.6 (0.7-2.0) mmol/L Calcium (8.4-10.2) mg/dL Total Bilirubin (0.2-1.3) mg/dL AST (14-36) U/L ALT (4-34) U/L Alkaline Phosphatase (38-126) U/L Troponin I <0.012 (0.000-0.034) ng/mL Total Protein (6.3-8.2) g/dL Albumin (3.5-5.0) g/dL Amylase (30-110) U/L Lipase (23-300) U/L Urine Color Yellow Urine Appearance Clear (Clear) Urine pH 8.5 H (5.0-8.0) Ur Specific Jeannette 1.015 (1.001-1.035) Urine Protein Trace H (Negative) Urine Glucose (UA) Negative (Negative) Urine Ketones Trace H (Negative) Urine Blood Negative (Negative) Urine Nitrite Negative (Negative) Urine Bilirubin Negative (Negative) Urine Urobilinogen 3.0 (<2.0) mg/dL Ur Leukocyte Esterase Negative (Negative) Disposition Clinical Impression: Small bowel obstruction Disposition: ADMITTED IP TO THIS [facility] Condition: Good Time of Disposition: 15:07 Decision to Admit Reason: Admit from EC Decision Date: 10/17/21 Decision Time: 15:07
[2021-10-17] MEDS ORDERED: NALOXONE 0.4 MG/ML 1 ML VIAL IV PRN (14:53)
[2021-10-17] MEDS ORDERED: ONDANSETRON 4 MG/2 ML VIAL IVP PRN (14:53)
[2021-10-17] MEDS ORDERED: HYDROmorphone 0.5 MG/0.5 ML SYRINGE IVP PRN (14:53)
[2021-10-17] MEDS ORDERED: MORPHINE SULFATE 4 MG/ML SYRINGE IV PRN (14:53)
[2021-10-17] MEDS ORDERED: SODIUM CHLORIDE 0.9% 1,000 ML IV SCH (15:00)
[2021-10-17] MEDS: hydrOXYzine HCL 50 MG/ML 1 ML VIAL IM STA ×2 (16:21→17:06)
[2021-10-17] MEDS: PANTOPRAZOLE 40 MG/10 ML VIAL IVP SCH ×2 (17:14→20:04)
--- NOTE | 2021-10-17 18:40 | XR ---
EXAMINATION TYPE: XR chest 1V portable DATE OF EXAM: 10/17/2021 6:26 PM COMPARISON: 08/01/2021 CT chest, chest radiograph most recently 01/20/2020. TECHNIQUE: XR chest 1V portable Portable AP radiograph of the chest.. CLINICAL INDICATION:Female, 66 years old with history of NG tube placement; FINDINGS: Lungs/Pleura: There is no evidence of pleural effusion, focal consolidation, or pneumothorax. Pulmonary vascularity: Unremarkable. Heart/mediastinum: Cardiomediastinal silhouette is unremarkable. Musculoskeletal: No acute osseous pathology. Unchanged left lateral apical osseous lesion dating back to at least 2016. Lines/Tubes: Nasogastric tube with distal tip projecting over the gastric lumen. The side-port projects over the d istal esophagus. IMPRESSION: 1. Nasogastric tube side-port projecting over the distal esophagus, advancement of 6 cm is recommend ed for optimal placement. 2. No acute cardiopulmonary disease/process.
[2021-10-17] MEDS ORDERED: ALPRAZolam 0.25 MG TAB PO PRN (19:37)
--- NOTE | 2021-10-17 19:42 | XR ---
EXAMINATION TYPE: XR chest 1V portable DATE OF EXAM: 10/17/2021 7:31 PM COMPARISON: Chest radiographs from earlier in the day. TECHNIQUE: XR chest 1V portable Frontal view of the chest. CLINICAL INDICATION:Female, 66 years old with history of Reconfirm NG placement. Advanced per previou s xr; FINDINGS: Nasogastric tube with its distal tip and side-port projecting under the diaphragm. Exam is unchanged from prior. IMPRESSION: Gastric tube now in appropriate position. Remainder of exam is unchanged from prior.
[2021-10-17] MEDS: HEPARIN SODIUM,PORCINE/PF 5,000 UNIT/0.5 ML SYRINGE SQ SCH (20:04)
--- NOTE | 2021-10-17 20:56 | HP ---
HISTORY AND PHYSICAL CHIEF COMPLAINTS: Abdominal pain. HISTORY OF PRESENT ILLNESS: This 66-year-old woman with a past medical history of multiple medical problems including hyperlipidemia, history of DJD, pneumonia, multiple abdominal surgeries. The patient has section, laparoscopy, hysterectomy, and cholecystectomy. The patient is complaining of severe abdominal pain since early childhood assistant. Subsequently, patient vomited. The patient took Zofran without any relief and because of intense cramping, the patient came to [facility] and was admitted for further evaluation and treatment. A CT scan of the abdomen showed bilateral nonobstructing renal calculi as well as signs of possible acute mechanical small-bowel obstruction with suspected transition point. The patient admitted for surgical evaluation. There is no history of fever, rigors, chills. PAST MEDICAL HISTORY: History of multiple abdominal surgeries as mentioned earlier and hyperlipidemia. The rest of the history reviewed. MEDICATIONS: Reviewed and include: Revatio. Dose and the rest of medications reviewed.. ALLERGIES: ALLERGIES ARE AGAIN REVIEWED INCLUDE LEVAQUIN. FAMILY HISTORY: History of atrial fibrillation, Parkinson's. SOCIAL HISTORY: Previous history of smoking. REVIEW OF SYSTEMS: 14-point review of systems is negative except as mentioned earlier. PHYSICAL EXAMINATION: Pulse 68, blood pressure 130/79, respirations 18. HEENT: Conjunctivae normal. Oral mucosa moist. NECK is no JVD. CARDIOVASCULAR: S1, S2. RESPIRATION: No rhonchi. No crackles. ABDOMEN: Soft, mild diffuse discomfort. No guarding. No rigidity. No abdominal distention. Bowel sounds diminished. LEGS: No edema. No swelling. NERVOUS SYSTEM: No focal deficits. SKIN: No ulcers. JOINTS: No active deforming arthropathy. LABS: CBC within normal limits. Other labs are noted. ASSESSMENT: 1. Abdominal pain with possible small bowel obstruction. 2. History of multiple abdominal surgeries. 3. Hyperlipidemia. 4. History of primary pulmonary hypertension. 5. History of anxiety, depression. RECOMMENDATIONS AND DISCUSSION: This 66-year-old woman who presented with multiple medical issues, at this time I recommend to continue current medications. I will treat the patient. Keep the patient n.p.o. Symptomatic treatment and surgical evaluation. The patient apparently had a bowel movement after coming to the hospital. We will continue to monitor. Resume the home medications and further recommendations to follow. Prognosis guarded. Discussed with the patient. MMODL / IJN: [id number] /
[2021-10-17] MEDS: SILDENAFIL 20 MG TAB PO SCH (22:32)
[2021-10-17] MEDS: ONDANSETRON 4 MG/2 ML VIAL IVP PRN (22:32)
[2021-10-18] MEDS: ONDANSETRON 4 MG/2 ML VIAL IVP PRN ×3 (07:43→22:40)
[2021-10-18] MEDS: HYDROmorphone 1 MG/ML 1 ML SYRINGE IVP PRN ×2 (08:20)
[2021-10-18] MEDS: PANTOPRAZOLE 40 MG/10 ML VIAL IVP SCH ×2 (08:21→22:40)
[2021-10-18] MEDS: HEPARIN SODIUM,PORCINE/PF 5,000 UNIT/0.5 ML SYRINGE SQ SCH ×2 (08:23→22:40)
[2021-10-18] MEDS: SILDENAFIL 20 MG TAB PO SCH ×3 (08:28→22:40)
[2021-10-18] MEDS: GABAPENTIN 300 MG CAP PO SCH ×3 (08:52→22:40)
[2021-10-18] MEDS: MACITENTAN 10 MG PO SCH (08:57)
[2021-10-18] MEDS ORDERED: Macitentan [Opsumit] 10 MG Tablet PO SCH (09:00)
--- NOTE | 2021-10-18 09:40 | XR ---
EXAMINATION TYPE: XR abdomen 2V DATE OF EXAM: 10/18/2021 COMPARISON: NONE HISTORY: Pain TECHNIQUE: Single supine KUB image of the abdomen is obtained FINDINGS: NG tube is seen now with its distal tip overlying the stomach. Dilated small bowel overlying the left hemiabdomen persists measuring up to 5.7 cm. Remaining small b owel appears to be of normal caliber. Large bowel is also normal caliber. No convincing evidence for pneumoperitoneum. No unusual calcifications. The lung bases are clear. The osseous structures are intact. IMPRESSION: 1. Dilated bowel overlying the left hemiabdomen. Correlate for obstructive change or focal ileus. Pr ogress studies are advised.
[2021-10-18] MEDS ORDERED: LORazepam 0.5 MG TAB PO PRN (10:12)
--- NOTE | 2021-10-18 11:57 | P.GSHP ---
History of Present Illness H&P Date: 10/18/21 CHIEF COMPLAINT: Abdominal pain HISTORY OF PRESENT ILLNESS: This is a 66-year-old female who presented with left-sided abdominal pain and lower back pain that started 3 days ago. She was having vomiting yesterday 3 episodes. She describes the pain as cramping. She did start to have bowel movements yesterday. She describes them as regular. She is having flatus. Patient had computed tomography scan of abdomen and pelvis are showing signs of acute mechanical small bowel obstruction with suspected a transition point in the lower abdomen possibly due to adhesions. Patient's prior surgical history includes x 4, cholecystectomy and hysterectomy. Patient does have a medical history of primary pulmonary hypertension. Patient has NG tube in place for small bowel obstruction. Surgical service consulted for small bowel obstruction. PAST MEDICAL HISTORY: Uterine cancer, GERD/Reflux, Hyperlipidemia, Osteoarthritis (OA), Pneumonia, Renal Disease, primary pulmonary hypertension, polymyalgia rheumatic, PAST SURGICAL HISTORY: See list. MEDICATIONS: See list. ALLERGIES: See list. SOCIAL HISTORY: No illicit drug use. REVIEW OF SYSTEMS: CONSTITUTIONAL: Denies fever or chills. HEENT: Denies blurred vision, vision changes, or eye pain. Denies hemoptysis CARDIOVASCULAR: Denies chest pain or pressure. RESPIRATORY: No shortness of breath. GASTROINTESTINAL: See HPI for pertinent findings HEMATOLOGIC: Denies bleeding disorders. GENITOURINARY: Denies any blood in urine or increased urinary frequency. SKIN: Denies pruitis. Denies rash. PHYSICAL EXAM: VITAL SIGNS: Reviewed GENERAL: Well-developed in no acute distress. HEENT: No sclera icterus. Extraocular movements grossly intact. Moist buccal mucosa. Head is atraumatic, normocephalic. No nasal drainage. ABDOMEN: Soft. Nondistended. Nontender NG tube in place with clearish output NEUROLOGIC: Alert and oriented. Cranial nerves II through XII grossly intact. LABORATORY DATA: WBC is 7.2 HGB 14.2 platelets 241 INR 0.9 Sodium 137 potassium 4.0 creatinine 0.86 Lactic acid 1.6 Total bilirubin 0.9 LFTs normal Troponin negative lipase 83 urinalysis negative for infection IMAGING: computed tomography scan abdomen and pelvis bilateral nonobstructing renal calculi. No hydroureter or hydronephrosis. Signs of acute mechanical small bowel obstruction with suspected transition point in the lower abdomen, possibly due to adhesions. This is suboptimally assessed by this not enhanced computed tomography scan no danielle pneumatosis, free peritoneal air or portal venous gas. Bowel ischemia cannot be excluded. Abdominal x-ray dilated bowel overlying the left mary-abdomen. Correlate for obstructive change or focal ileus ASSESSMENT: 1. Acute mechanical small bowel obstruction with transition point in the lower abdomen possibly secondary to adhesions 2. History of Multiple abdominal surgeries PLAN: -Continue NG tube for decompression. Discussed with nursing staff to pull NG tube back 2 inches. -Continue IV fluids -Continue supportive care -Ativan added for anxiety -Continue pain medication as needed -Continue antiemetics as needed -Further recommendations forthcoming per surgeon Thank you for this consultation Physician Collision Technician note has been reviewed by physician. Signing provider agrees with the documented findings, assessment, and plan of care. I have personally seen and examined the patient, reviewed the TOBACCO PACKER /PAs history, exam and MDM and agree with the assessment and plan as written. Based on total visit time, I have performed more than 50% of the visit. As above: Patient with diagnostics and history consistent with small bowel obstruction. She has passed flatus today and feels significantly better than yesterday. No significant pain currently. Patient with history of previous endometrial cancer and had some form of brachytherapy performed around that time in addition to chemotherapy. Today's x-rays show slight improvement in overall distention. Keep nasogastric tube in place for now. Ambulate with assistance. 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 MIGRAINE HEADACHE, U TERINE CANCER, POLY MYALGIA RHEUMATICA, History of Any Multi-Drug Resistant Organisms: None Reported Past Surgical History: Section, Cholecystectomy, Hysterectomy, Orthopedic Surgery, Tonsillectomy Additional Past Surgical History / Comment(s): X 4, RT KNEE SURGERY, D & C , colonosopy and bilateral tubes in ears.LITHROTRIPSY Past Anesthesia/Blood Transfusion Reactions: Postoperative Nausea & Vomiting (PONV) Past Psychological History: Anxiety, Depression Smoking Status: Former smoker Past Alcohol Use History: None Reported Past Drug Use History: None Reported - Past Family History Mother Family Medical History: AFIB, CVA/TIA, Neurologic Disorder Additional Family Medical History / Comment(s): HX PARKINSON'S Father Family Medical History: Cancer, CVA/TIA Additional Family Medical History / Comment(s): HEART DISEASE , PACREAS-CANCER Medications and Allergies Home Medications Medication Instructions Recorded Confirmed Type Macitentan [Opsumit] 10 mg PO DAILY 09/22/13 10/17/21 History Potassium Citrate [Potassium 20 meq PO DAILY 08/07/16 10/17/21 History Citrate ER] Potassium Citrate [Potassium 10 meq PO HS 06/12/18 10/17/21 History Citrate ER] Sildenafil [Revatio] 20 mg PO TID 06/12/18 10/17/21 History Ergocalciferol [Vitamin D2 50,000 unit PO WE 05/19/19 10/17/21 History (DRISDOL)] Omeprazole [PriLOSEC] 40 mg PO DAILY 04/25/20 10/17/21 History ALPRAZolam [Xanax] 0.25 mg PO DAILY PRN 10/17/21 10/17/21 History Ezetimibe [Zetia] 10 mg PO DAILY 10/17/21 10/17/21 History FLUoxetine HCL [PROzac] 40 mg PO DAILY 10/17/21 10/17/21 History Gabapentin 600 mg PO TID 10/17/21 10/17/21 History Ondansetron Odt [Zofran Odt] 4 mg PO Q8H PRN 10/17/21 10/17/21 History estradioL [Imvexxy] 4 mcg VAGINAL TUFR 10/17/21 10/17/21 History Allergies Allergy/AdvReac Type Severity Reaction Status Date / Time hydrocodone bitartrate Allergy Mild Nausea & Verified 10/17/21 23:51 [From Vicodin] Vomiting adhesive tape Allergy Rash/Hives Verified 10/17/21 12:19 levofloxacin [From Levaquin] Allergy Unknown Verified 10/17/21 12:19 Penicillins Allergy Rash/Hives Verified 10/17/21 12:19 Quinolones Allergy AFFECTS Verified 10/17/21 12:19 HEART RHYTHM Sulfa (Sulfonamide Allergy Rash/Hives Verified 10/17/21 12:19 Antibiotics) Surgical - Exam Vital Signs Temp Pulse Resp BP Pulse Ox 98.0 F 92 18 129/82 98 10/17/21 11:15 10/17/21 11:15 10/17/21 11:15 10/17/21 11:15 10/17/21 11:15 Results - Labs 10/17/21 12:17 10/17/21 12:17 Abnormal Lab Results - Last 24 Hours (Table) 10/17/21 10/17/21 Range/Units 12:17 13:43 BUN 18 H (7-17) mg/dL Glucose 114 H (74-99) mg/dL Calcium 10.6 H (8.4-10.2) mg/dL Albumin 5.2 H (3.5-5.0) g/dL Urine pH 8.5 H (5.0-8.0) Urine Protein Trace H (Negative) Urine Ketones Trace H (Negative) Diabetes panel 10/17/21 Range/Units 12:17 Sodium 137 (137-145) mmol/L Potassium 4.0 (3.5-5.1) mmol/L Chloride 99 (98-107) mmol/L Carbon Dioxide 27 (22-30) mmol/L BUN 18 H (7-17) mg/dL Creatinine 0.86 (0.52-1.04) mg/dL Glucose 114 H (74-99) mg/dL Calcium 10.6 H (8.4-10.2) mg/dL AST 26 (14-36) U/L ALT 16 (4-34) U/L Alkaline Phosphatase 119 (38-126) U/L Total Protein 7.8 (6.3-8.2) g/dL Albumin 5.2 H (3.5-5.0) g/dL Calcium panel 10/17/21 Range/Units 12:17 Calcium 10.6 H (8.4-10.2) mg/dL Albumin 5.2 H (3.5-5.0) g/dL Pituitary panel 10/17/21 Range/Units 12:17 Sodium 137 (137-145) mmol/L Potassium 4.0 (3.5-5.1) mmol/L Chloride 99 (98-107) mmol/L Carbon Dioxide 27 (22-30) mmol/L BUN 18 H (7-17) mg/dL Creatinine 0.86 (0.52-1.04) mg/dL Glucose 114 H (74-99) mg/dL Calcium 10.6 H (8.4-10.2) mg/dL Adrenal panel 10/17/21 Range/Units 12:17 Sodium 137 (137-145) mmol/L Potassium 4.0 (3.5-5.1) mmol/L Chloride 99 (98-107) mmol/L Carbon Dioxide 27 (22-30) mmol/L BUN 18 H (7-17) mg/dL Creatinine 0.86 (0.52-1.04) mg/dL Glucose 114 H (74-99) mg/dL Calcium 10.6 H (8.4-10.2) mg/dL Total Bilirubin 0.9 (0.2-1.3) mg/dL AST 26 (14-36) U/L ALT 16 (4-34) U/L Alkaline Phosphatase 119 (38-126) U/L Total Protein 7.8 (6.3-8.2) g/dL Albumin 5.2 H (3.5-5.0) g/dL
[2021-10-18] MEDS: SODIUM CHLORIDE 0.9% 1,000 ML IV SCH (12:17)
[2021-10-18] MEDS ORDERED: LORazepam 2 MG/ML INJ IV PRN (13:49)
[2021-10-18] MEDS: LORazepam 0.5 MG TAB PO PRN ×2 (13:57→22:40)
[2021-10-18] MEDS: ACETAMINOPHEN IV (For NPO) 1,000 MG in EMPTY BAG 1 BAG IVPB PRN ×2 (13:58→23:12)
--- NOTE | 2021-10-18 19:56 | P.PN ---
Subjective Progress Note Date: 10/18/21 66-year-old female patient with history of hyperlipidemia, DJD presents to ED with complaint of severe abdominal pain and vomiting CT of the abdomen completed reveals bilateral nonobstructing renal calculi as well as possible acute mechanical small bowel obstruction with suspected transition point Patient is admitted to the hospital for further surgery evaluation and management WBC is 7.2 HGB 14.2 platelets 241 INR 0.9 Sodium 137 potassium 4.0 creatinine 0.86 Lactic acid 1.6 Total bilirubin 0.9 LFTs normal Troponin negative lipase 83 urinalysis negative for infection Objective - Vital Signs Vital signs: Vital Signs Temp 98.2 F 10/18/21 14:00 Pulse 61 10/18/21 14:00 Resp 16 10/18/21 14:00 BP 118/71 10/18/21 14:00 Pulse Ox 94 L 10/18/21 14:00 FiO2 Intake & Output 10/17/21 10/18/21 10/18/21 18:59 06:59 18:59 Intake Total 0 Balance 0 Weight 65.771 kg Intake: Oral 0 Other: Voiding Method Toilet Toilet # Voids 2 3 - Exam - Constitutional General appearance: Present: average body habitus, cooperative, no acute distre ss - EENT Eyes: Present: anicteric sclerae, EOMI, PERRLA, normal appearance ENT: Present: hearing grossly normal, normal oropharynx Ears: bilateral: normal - Neck Neck: Present: normal ROM. Absent: lymphadenopathy, rigidity, thyromegaly Carotids: negative: bruit present Thyroid: bilateral: normal size, negative: enlarged, nodule - Respiratory Respiratory: bilateral: CTA, negative: rales, rhonchi, wheezing - Cardiovascular Rhythm: regular Heart sounds: normal: S1, S2 Abnormal Heart Sounds: Absent: systolic murmur, diastolic murmur - Gastrointestinal General gastrointestinal: Present: normal bowel sounds, soft. Absent: distended, organomegaly, tenderness - Genitourinary Genitourinary Comment(s): deferred - Integumentary Integumentary: Present: normal turgor. Absent: jaundiced, rash, ulcer - Neurologic Neurologic: Present: CNII-XII intact. Absent: focal deficits - Musculoskeletal Musculoskeletal: Present: gait normal, strength equal bilaterally - Psychiatric Psychiatric: Present: A&O x's 3, appropriate affect, intact judgment & insight - Labs CBC & Chem 7: 10/17/21 12:17 10/17/21 12:17 Assessment and Plan Assessment: 1. Acute mechanical small bowel obstruction with transition point in the lower abdomen possibly secondary to adhesions 2. History of Multiple abdominal surgeries PLAN: -Continue NG tube for decompression. Discussed with nursing staff to pull NG tube back 2 inches. -Continue IV fluids -Continue supportive care -Ativan added for anxiety -Continue pain medication as needed -Continue antiemetics as needed -Further recommendations forthcoming per surgeon
[2021-10-19] MEDS: SODIUM CHLORIDE 0.9% 1,000 ML IV SCH ×2 (03:55→15:41)
[2021-10-19] MEDS: LORazepam 0.5 MG TAB PO PRN ×3 (04:43→21:09)
[2021-10-19] MEDS: ONDANSETRON 4 MG/2 ML VIAL IVP PRN (04:43)
--- NOTE | 2021-10-19 07:30 | XR ---
EXAMINATION TYPE: XR abdomen 2V DATE OF EXAM: 10/19/2021 HISTORY: Pain. Technique: 3 views of the abdomen are submitted. Comparison: 10/18/2021 Findings: There is no convincing evidence of pneumoperitoneum. NG tube is noted within the stomach. Dilated loop of bowel overlying the left hemiabdomen on yesterda y's study appears to have improved now measuring 2.9 cm versus 5.7 cm previously. There continue to b e thickened valvulae conniventes. Prominent loop of bowel within the midline is felt to reflect colon . No mass effects are noted. No renal calcifications are identified. Cholecystectomy clips are in place. Multiple phleboliths with in the pelvic basin. IMPRESSION: 1. Overall improvement suggested.
[2021-10-19] MEDS: SILDENAFIL 20 MG TAB PO SCH ×3 (07:48→21:09)
[2021-10-19] MEDS: HEPARIN SODIUM,PORCINE/PF 5,000 UNIT/0.5 ML SYRINGE SQ SCH ×2 (07:48→21:09)
[2021-10-19] MEDS: GABAPENTIN 300 MG CAP PO SCH ×3 (07:48→21:09)
[2021-10-19] MEDS: MACITENTAN 10 MG PO SCH (07:49)
[2021-10-19] MEDS: PANTOPRAZOLE 40 MG/10 ML VIAL IVP SCH ×2 (09:12→21:09)
--- NOTE | 2021-10-19 10:30 | P.PN ---
Progress Note - Text Progress Note Date: 10/19/21 Patient has had flatus yesterday and today. She denies any abdominal pain. On exam vital signs are stable. Abdomen soft. Patient will have a trial of clear liquid diet with her nasogastric tube clamped. If she tolerates this she will have her nasogastric tube removed after 6 hours.
[2021-10-19] MEDS: ACETAMINOPHEN TAB 325 MG TAB PO PRN ×2 (10:34→19:27)
--- NOTE | 2021-10-19 21:20 | P.PN ---
Subjective Progress Note Date: 10/19/21 Principal diagnosis: Acute mechanical small bowel obstruction with transition point in the lower abdomen possibly secondary to adhesion 66-year-old female patient with history of hyperlipidemia, DJD presents to ED with complaint of severe abdominal pain and vomiting CT of the abdomen completed reveals bilateral nonobstructing renal calculi as well as possible acute mechanical small bowel obstruction with suspected transition point Patient is admitted to the hospital for further surgery evaluation and management WBC is 7.2 HGB 14.2 platelets 241 INR 0.9 Sodium 137 potassium 4.0 creatinine 0.86 Lactic acid 1.6 Total bilirubin 0.9 LFTs normal Troponin negative lipase 83 urinalysis negative for infection 10/19/2021 Patient is seated and evaluated sitting up in bed; NG tube has been removed; patient has been placed on a clear liquid diet; reports some abdominal discomfort; has been passing gas but no bowel movements yet; reports ambulating around the floor 2-3 times a day; labs are reviewed and stable; general surgery on board; we'll continue with IV fluids and pain medications as needed; symptomatic treatment with antiemetics Objective - Vital Signs Vital signs: Vital Signs Temp 98.3 F 10/19/21 14:00 Pulse 76 10/19/21 14:00 Resp 17 10/19/21 14:00 BP 95/56 10/19/21 14:00 Pulse Ox 96 10/19/21 14:00 FiO2 Intake & Output 10/18/21 10/19/21 10/19/21 18:59 06:59 18:59 Output Total 200 Balance -200 Output: Gastric Drainage 200 Other: Voiding Method Toilet Toilet Toilet # Voids 3 - Exam - Constitutional General appearance: Present: average body habitus, cooperative, no acute distress - EENT Eyes: Present: anicteric sclerae, EOMI, PERRLA, normal appearance ENT: Present: hearing grossly normal, normal oropharynx Ears: bilateral: normal - Neck Neck: Present: normal ROM. Absent: lymphadenopathy, rigidity, thyromegaly Carotids: negative: bruit present Thyroid: bilateral: normal size, negative: enlarged, nodule - Respiratory Respiratory: bilateral: CTA, negative: rales, rhonchi, wheezing - Cardiovascular Rhythm: regular Heart sounds: normal: S1, S2 Abnormal Heart Sounds: Absent: systolic murmur, diastolic murmur - Gastrointestinal General gastrointestinal: Present: normal bowel sounds, soft. Absent: distended, organomegaly, tenderness - Genitourinary Genitourinary Comment(s): deferred - Integumentary Integumentary: Present: normal turgor. Absent: jaundiced, rash, ulcer - Neurologic Neurologic: Present: CNII-XII intact. Absent: focal deficits - Musculoskeletal Musculoskeletal: Present: gait normal, strength equal bilaterally - Psychiatric Psychiatric: Present: A&O x's 3, appropriate affect, intact judgment & insight - Labs CBC & Chem 7: 10/17/21 12:17 10/17/21 12:17 Assessment and Plan Assessment: 1. Acute mechanical small bowel obstruction with transition point in the lower abdomen possibly secondary to adhesions 2. History of Multiple abdominal surgeries PLAN: -Continue NG tube for decompression. Discussed with nursing staff to pull NG tube back 2 inches. -Continue IV fluids -Continue supportive care -Ativan added for anxiety -Continue pain medication as needed -Continue antiemetics as needed -Further recommendations forthcoming per surgeon
[2021-10-20] MEDS: SODIUM CHLORIDE 0.9% 1,000 ML IV SCH ×2 (03:07→18:57)
[2021-10-20] MEDS: ACETAMINOPHEN TAB 325 MG TAB PO PRN ×2 (05:15→16:33)
[2021-10-20] MEDS: MACITENTAN 10 MG PO SCH (07:40)
[2021-10-20] MEDS: SILDENAFIL 20 MG TAB PO SCH ×3 (07:40→20:53)
[2021-10-20] MEDS: GABAPENTIN 300 MG CAP PO SCH ×3 (07:40→20:52)
[2021-10-20] MEDS: HEPARIN SODIUM,PORCINE/PF 5,000 UNIT/0.5 ML SYRINGE SQ SCH ×2 (07:42→20:52)
[2021-10-20] MEDS: PANTOPRAZOLE 40 MG/10 ML VIAL IVP SCH ×2 (08:28→21:25)
[2021-10-20] MEDS: LORazepam 0.5 MG TAB PO PRN ×3 (08:35→22:53)
--- NOTE | 2021-10-20 09:14 | P.PN ---
Progress Note - Text Progress Note Date: 10/20/21 Patient tolerated having her nasogastric tube clamped yesterday. Her nasogastric tube was then removed. She started clear liquids. She's had flatus. On exam vital signs are stable. Abdomen soft. Resolving small bowel structure. Patient will have her diet increased to full liquid diet.
[2021-10-20 09:26] LABS: Basophils # (A) 0.01 X 10*3/uL (0.00-0.10); Basophils % (A) 0.2 %; Eosinophils # (A) 0.35 X 10*3/uL (0.04-0.35); Eosinophils % (A) 7.8 %; HCT 37.4 % (37.2-46.3); HGB 11.6 g/dL (12.0-15.0); Immature Grans, Automated 0.2 %; Lymphocytes # (A) 1.47 X 10*3/uL (0.90-5.00); Lymphocytes % (A) 32.6 %; MCH 29.2 pg (27.0-32.0); MCV 94.2 fL (80.0-97.0); Mean Platelet Volume 10.6 fL (9.5-12.2); Monocytes # (A) 0.28 X 10*3/uL (0.20-1.00); Monocytes % (A) 6.2 %; NRBC Per 100 WBC 0 /100 WBCS (0.0-0.0); Neutrophils # (A) 2.39 X 10*3/uL (1.80-7.70); Platelet Count 187 X 10*3/uL (140-440); RBC 3.97 X 10*6/uL (4.10-5.20); RDW 13.4 % (11.5-14.5); WBC 4.51 X 10*3/uL (4.50-10.00)
[2021-10-20 09:35] LABS: Anion Gap 10.9 mmol/L (10.00-18.00); BUN/Creat Ratio 9.03 Ratio (12.00-20.00); Carbon Dioxide 20.6 mmol/L (20.0-27.5); Non-African American GFR(CKD) 68.2 (60.0-200.0); Potassium 4.1 mmol/L (3.5-5.5)
--- NOTE | 2021-10-20 16:59 | P.PN ---
Subjective Progress Note Date: 10/20/21 Principal diagnosis: Acute mechanical small bowel obstruction with transition point in the lower abdomen possibly secondary to adhesion 66-year-old female patient with history of hyperlipidemia, DJD presents to ED with complaint of severe abdominal pain and vomiting CT of the abdomen completed reveals bilateral nonobstructing renal calculi as well as possible acute mechanical small bowel obstruction with suspected transition point Patient is admitted to the hospital for further surgery evaluation and management WBC is 7.2 HGB 14.2 platelets 241 INR 0.9 Sodium 137 potassium 4.0 creatinine 0.86 Lactic acid 1.6 Total bilirubin 0.9 LFTs normal Troponin negative lipase 83 urinalysis negative for infection 10/19/2021 Patient is seated and evaluated sitting up in bed; NG tube has been removed; patient has been placed on a clear liquid diet; reports some abdominal discomfort; has been passing gas but no bowel movements yet; reports ambulating around the floor 2-3 times a day; labs are reviewed and stable; general surgery on board; we'll continue with IV fluids and pain medications as needed; symptomatic treatment with antiemetics 10/20/2021 Patient is seen and evaluated in room at bedside; denies any specific comp laints; has been ambulating in the room and on the floor; no concern about worsening abdominal distention Patient admitted with small bowel obstruction which has resolved with NG tube suctioning; NG tube has been removed and patient has been placed on a diet; general surgery on board and recommending to advance diet to full liquids - We will continue with IV fluid hydration and monitor renal function and electrolytes Possible discharge in next 24 hours if remains stable and once cleared by surge ry Objective - Vital Signs Vital signs: Vital Signs Temp 98.2 F 10/20/21 14:00 Pulse 71 10/20/21 14:00 Resp 18 10/20/21 14:00 BP 113/74 10/20/21 14:00 Pulse Ox 95 10/20/21 14:00 FiO2 Intake & Output 10/19/21 10/20/21 10/20/21 18:59 06:59 18:59 Intake Total 1080 Balance 1080 Intake: Oral 1080 Other: Voiding Method Toilet Toilet Toilet # Voids 2 # Bowel Movements 0 - Exam - Constitutional General appearance: Present: average body habitus, cooperative, no acute distress - EENT Eyes: Present: anicteric sclerae, EOMI, PERRLA, normal appearance ENT: Present: hearing grossly normal, normal oropharynx Ears: bilateral: normal - Neck Neck: Present: normal ROM. Absent: lymphadenopathy, rigidity, thyromegaly Carotids: negative: bruit present Thyroid: bilateral: normal size, negative: enlarged, nodule - Respiratory Respiratory: bilateral: CTA, negative: rales, rhonchi, wheezing - Cardiovascular Rhythm: regular Heart sounds: normal: S1, S2 Abnormal Heart Sounds: Absent: systolic murmur, diastolic murmur - Gastrointestinal General gastrointestinal: Present: normal bowel sounds, soft. Absent: distended, organomegaly, tenderness - Genitourinary Genitourinary Comment(s): deferred - Integumentary Integumentary: Present: normal turgor. Absent: jaundiced, rash, ulcer - Neurologic Neurologic: Present: CNII-XII intact. Absent: focal deficits - Musculoskeletal Musculoskeletal: Present: gait normal, strength equal bilaterally - Psychiatric Psychiatric: Present: A&O x's 3, appropriate affect, intact judgment & insight - Labs CBC & Chem 7: 10/20/21 05:46 10/20/21 05:46 Labs: Abnormal Lab Results - Last 24 Hours (Table) 10/20/21 10/20/21 Range/Units 05:46 05:46 RBC 3.97 L (4.10-5.20) X 10*6/uL Hgb 11.6 L (12.0-15.0) g/dL MCHC 31.0 L (32.0-37.0) g/dL Chloride 112 H (96-109) mmol/L BUN 8.0 L (9.0-27.0) mg/dL BUN/Creatinine Ratio 9.03 L (12.00-20.00) Ratio Glucose 123 H (70-110) mg/dL Assessment and Plan Assessment: 1. Acute mechanical small bowel obstruction with transition point in the lower abdomen possibly secondary to adhesions 2. History of Multiple abdominal surgeries PLAN: -Continue NG tube for decompression. Discussed with nursing staff to pull NG tube back 2 inches. -Continue IV fluids -Continue supportive care -Ativan added for anxiety -Continue pain medication as needed -Continue antiemetics as needed -Further recommendations forthcoming per surgeon
[2021-10-20 20:10] VITALS: RESP 16
[2021-10-21] MEDS: SODIUM CHLORIDE 0.9% 1,000 ML IV SCH (05:47)
[2021-10-21] MEDS: LORazepam 0.5 MG TAB PO PRN ×2 (05:52→13:06)
[2021-10-21 08:04] VITALS: TEMP 98.3
[2021-10-21] MEDS: MACITENTAN 10 MG PO SCH (08:13)
[2021-10-21] MEDS: HEPARIN SODIUM,PORCINE/PF 5,000 UNIT/0.5 ML SYRINGE SQ SCH (08:13)
[2021-10-21] MEDS: GABAPENTIN 300 MG CAP PO SCH ×2 (08:13→15:09)
[2021-10-21] MEDS: PANTOPRAZOLE 40 MG/10 ML VIAL IVP SCH (08:13)
[2021-10-21] MEDS: SILDENAFIL 20 MG TAB PO SCH ×2 (08:15→15:09)
[2021-10-21] MEDS ORDERED: FLUoxetine HCL 20 MG CAP PO SCH (09:00)
[2021-10-21 09:08] LABS: Basophils # (A) 0.02 X 10*3/uL (0.00-0.10); Basophils % (A) 0.5 %; Eosinophils # (A) 0.34 X 10*3/uL (0.04-0.35); Eosinophils % (A) 9.1 %; HCT 36.1 % (37.2-46.3); HGB 11.3 g/dL (12.0-15.0); Immature Grans, Automated 0.3 %; Lymphocytes # (A) 1.51 X 10*3/uL (0.90-5.00); Lymphocytes % (A) 40.4 %; MCH 29.4 pg (27.0-32.0); MCHC 31.3 g/dL (32.0-37.0); MCV 93.8 fL (80.0-97.0); Mean Platelet Volume 10.6 fL (9.5-12.2); Monocytes # (A) 0.31 X 10*3/uL (0.20-1.00); Monocytes % (A) 8.3 %; NRBC Per 100 WBC 0 /100 WBCS (0.0-0.0); Neutrophils # (A) 1.55 X 10*3/uL (1.80-7.70); Neutrophils % (A) 41.4 %; Platelet Count 174 X 10*3/uL (140-440); RBC 3.85 X 10*6/uL (4.10-5.20); RDW 13.8 % (11.5-14.5); WBC 3.74 X 10*3/uL (4.50-10.00)
[2021-10-21 09:32] LABS: African American GFR (CKD) 77.2 (60.0-200.0); Anion Gap 11.6 mmol/L (10.00-18.00); Blood Urea Nitrogen 6.3 mg/dL (9.0-27.0); Calcium 8.7 mg/dL (8.7-10.3); Carbon Dioxide 19.4 mmol/L (20.0-27.5); Non-African American GFR(CKD) 66.6 (60.0-200.0); Potassium 3.8 mmol/L (3.5-5.5)
--- NOTE | 2021-10-21 11:58 | P.PN ---
Subjective Progress Note Date: 10/21/21 HISTORY OF PRESENT ILLNESS 66-year-old female patient with history of hyperlipidemia, DJD presents to ED w ith complaint of severe abdominal pain and vomiting CT of the abdomen completed reveals bilateral nonobstructing renal calculi as well as possible acute mechanical small bowel obstruction with suspected transition point Patient is admitted to the hospital for further surgery evaluation and managemen t WBC is 7.2 HGB 14.2 platelets 241 INR 0.9 Sodium 137 potassium 4.0 creatinine 0.86 Lactic acid 1.6 Total bilirubin 0.9 LFTs normal Troponin negative lipase 83 urinalysis negative for infection 10/19/2021 Patient is seated and evaluated sitting up in bed; NG tube has been removed; patient has been placed on a clear liquid diet; reports some abdominal discomfort; has been passing gas but no bowel movements yet; reports ambulating around the floor 2-3 times a day; labs are reviewed and stable; general surgery on board; we'll continue with IV fluids and pain medications as needed; symptomatic treatment with antiemetics 10/20/2021 Patient is seen and evaluated in room at bedside; denies any specific complaints; has been ambulating in the room and on the floor; no concern about worsening abdominal distention Patient admitted with small bowel obstruction which has resolved with NG tube suctioning; NG tube has been removed and patient has been placed on a diet; [facility] and recommending to advance diet to full liquids - We will continue with IV fluid hydration and monitor renal function and electrolytes Possible discharge in next 24 hours if remains stable and once cleared by surgery 10/21: Patient denies having any abdominal pain, nausea or vomiting. She is tolerating full liquid diet. She has IV fluids running which will be discontinued. Medication reconciliation completed for anticipation of discharge today. Patient discussed PTSD issue and has not been receiving Prozac since admission, this will be resumed. She has been on Ativan versus Xanax and a new prescription will be sent to her pharmacy from the office. Patient is cleared medically for discharge home today. REVIEW OF SYSTEMS Constitutional: No fever, no chills, no night sweats. No weight change. No weakness, fatigue or lethargy. No daytime sleepiness. EENT: No headache. No blurred vision or double vision, no loss of vision. No loss of Hearing, no ringing in the ears, no dizziness. No nasal drainage or congestion. No epistaxis. No sore throat. Lungs: No shortness of breath, cough, no sputum production. No wheezing. Cardiovascular: No chest pain, no lower extremity edema. No palpitations. No paroxysmal nocturnal dyspnea. No orthopnea. No lightheadedness or dizziness. No syncopal episodes. Abdominal: Denies abdominal pain. No nausea, vomiting. No diarrhea. No constipation. No bloody or tarry stools. No loss of appetite. Genitourinary: No dysuria, increased frequency, urgency. No urinary retention. Musculoskeletal: No myalgias. No muscle weakness, no gait dysfunction, no frequent falls. No back pain. No neck pain. Integumentary: No wounds, no lesions. No rash or pruritus. No unusual bruising. No change in hair or nails. Neurologic: No aphasia. No facial droop. No change in mentation. No head injury. No headache. No paralysis. No paresthesia. Psychiatric: No depression. No anxiety. No mood swings. Endocrine: No abnormal blood sugars. No weight change. No excessive sweating or thirst. No cold intolerance. PHYSICAL EXAMINATION Gen: This is a 66-year-old female. She is resting in bed and appears to be comfortable and in no acute distress. HEENT: Head is atraumatic, normocephalic. Pupils equal, round. Sclerae is anicteric. NECK: Supple. No JVD. No lymphadenopathy. No thyromegaly. LUNGS: Clear to auscultation. No wheezes or rhonchi. No intercostal retractions. HEART: Regular rate and rhythm. No murmur. ABDOMEN: Soft. Bowel sounds are present. No masses. No tenderness. EXTREMITIES: No pedal edema. No calf tenderness. NEUROLOGICAL: Patient is awake, alert and oriented x3. Cranial nerves 2 through 12 are grossly intact. ASSESSMENT AND PLAN 1. Acute mechanical small bowel obstruction with transition point in the lower abdomen possibly secondary to adhesions, resolved. 2. History of Multiple abdominal surgeries 4. PTSD. Patient resumed on Prozac and anti-anxiety medication. 5. Gastroesophageal reflux disease. 6. Hyperlipidemia. 7. Primary pulmonary hypertension. 8. History of uterine cancer. DISCHARGE PLAN Home. Impression and plan of care have been directed as dictated by the signing physician. Maxine Dugan nurse practitioner acting as scribe for signing p pedroan. Objective - Vital Signs Vital signs: Vital Signs Temp 98.3 F 10/21/21 06:55 Pulse 66 10/21/21 06:55 Resp 16 10/21/21 06:55 BP 131/72 10/21/21 06:55 Pulse Ox 95 10/21/21 06:55 FiO2 Intake & Output 10/20/21 10/21/21 10/21/21 18:59 06:59 18:59 Intake Total 1080 Balance 1080 Intake: Oral 1080 Other: Voiding Method Toilet Toilet # Voids 3 - Labs CBC & Chem 7: 10/21/21 05:15 10/21/21 05:15 Labs: Abnormal Lab Results - Last 24 Hours (Table) 10/20/21 10/20/21 Range/Units 05:46 05:46 RBC 3.97 L (4.10-5.20) X 10*6/uL Hgb 11.6 L (12.0-15.0) g/dL MCHC 31.0 L (32.0-37.0) g/dL Chloride 112 H (96-109) mmol/L BUN 8.0 L (9.0-27.0) mg/dL BUN/Creatinine Ratio 9.03 L (12.00-20.00) Ratio Glucose 123 H (70-110) mg/dL
[2021-10-21 13:42] VITALS: BP 110/66; PULSE 63
--- NOTE | 2021-10-21 13:47 | P.DS ---
Providers Date of admission: 10/17/21 14:53 Expected date of discharge: 10/21/21 Attending physician: Jose M Man Consults: 10/17/21 15:06 Consult Physician Urgent Consulting Provider: Rashaad Sykes Consult Reason/Comments: medical management Do you want consulting provider notified?: Yes 10/21/21 08:28 Consult Physician Routine Consulting Provider: Benji Hill Reason/Comments: med management Do you want consulting provider notified?: Already Contacted Primary care physician: Benji Hill Hospital Course: Discharge diagnosis 1. Acute small bowel obstruction likely secondary to adhesions treated conservatively 2. History of multiple abdominal surgeries Hospital course This is a 66-year-old female who presented with left-sided abdominal pain and lower back pain that started 3 days ago. She was having vomiting yesterday 3 episodes. She describes the pain as cramping. She did start to have bowel movements yesterday. She describes them as regular. She is having flatus. Patient had computed tomography scan of abdomen and pelvis are showing signs of acute mechanical small bowel obstruction with suspected a transition point in the lower abdomen possibly due to adhesions. Patient's bowel obstruction was treated conservatively with NG tube placement. Patient continued to have bowel movements and flatus. Abdominal pain resolved. NG tube was discontinued. She tolerated advancement of diet. She is afebrile. She is up and ambulating. She is stable for discharge. Please refer to chart for any further details. Physician Milk Powder Grinder note has been reviewed by physician. Signing provider agrees with the documented findings, assessment, and plan of care. Patient Condition at Discharge: Stable Plan - Discharge Summary New Discharge Prescriptions: Continue Macitentan [Opsumit] 10 mg PO DAILY Potassium Citrate [Potassium Citrate ER] 20 meq PO DAILY Sildenafil [Revatio] 20 mg PO TID Potassium Citrate [Potassium Citrate ER] 10 meq PO HS Ergocalciferol [Vitamin D2 (DRISDOL)] 50,000 unit PO WE Omeprazole [PriLOSEC] 40 mg PO DAILY ALPRAZolam [Xanax] 0.25 mg PO DAILY PRN PRN Reason: Anxiety estradioL [Imvexxy] 4 mcg VAGINAL TUFR FLUoxetine HCL [PROzac] 40 mg PO DAILY Ezetimibe [Zetia] 10 mg PO DAILY Gabapentin 600 mg PO TID Ondansetron Odt [Zofran ODT] 4 mg PO Q8H PRN PRN Reason: Nausea Discharge Medication List Macitentan [Opsumit] 10 mg PO DAILY 09/22/13 [History] Potassium Citrate [Potassium Citrate ER] 20 meq PO DAILY 08/07/16 [History] Potassium Citrate [Potassium Citrate ER] 10 meq PO HS 06/12/18 [History] Sildenafil [Revatio] 20 mg PO TID 06/12/18 [History] Ergocalciferol [Vitamin D2 (DRISDOL)] 50,000 unit PO WE 05/19/19 [History] Omeprazole [PriLOSEC] 40 mg PO DAILY 04/25/20 [History] ALPRAZolam [Xanax] 0.25 mg PO DAILY PRN 10/17/21 [History] Ezetimibe [Zetia] 10 mg PO DAILY 10/17/21 [History] FLUoxetine HCL [PROzac] 40 mg PO DAILY 10/17/21 [History] Gabapentin 600 mg PO TID 10/17/21 [History] Ondansetron Odt [Zofran ODT] 4 mg PO Q8H PRN 10/17/21 [History] estradioL [Imvexxy] 4 mcg VAGINAL TUFR 10/17/21 [History] Follow up Appointment(s)/Referral(s): Benji Hill MD [Primary Care Provider] - 1 Week Activity/Diet/Wound Care/Special Instructions: Continue a low fiber diet over the next few days. Advance diet as tolerated. Discharge Disposition: HOME SELF-CARE
== END 2021-10-21 16:00 | disposition home or self-care (01) | DRG 389 ==
LOC: EC 10:51 → 4SSUR 14:53
PROVIDERS: ADMIT Surgery; ATTEND Surgery
PROC: 0D9670Z Drainage of Stomach with Drainage Device, Via Natural or Artificial Opening (ICD-10-PCS; principal; 2021-10-17)
DX: K56.50 Intestinal adhesions [bands], unspecified as to partial versus complete obstruction (principal); I27.0 Primary pulmonary hypertension; M35.3 Polymyalgia rheumatica; N25.89 Other disorders resulting from impaired renal tubular function; F41.9 Anxiety disorder, unspecified; N20.0 Calculus of kidney; E78.5 Hyperlipidemia, unspecified; K21.9 Gastro-esophageal reflux disease without esophagitis; M17.0 Bilateral primary osteoarthritis of knee; G43.909 Migraine, unspecified, not intractable, without status migrainosus; F43.10 Post-traumatic stress disorder, unspecified; F32.A Depression, unspecified; Z79.890 Hormone replacement therapy; Z79.899 Other long term (current) drug therapy; Z85.42 Personal history of malignant neoplasm of other parts of uterus; Z87.891 Personal history of nicotine dependence; Z87.442 Personal history of urinary calculi; Z87.01 Personal history of pneumonia (recurrent); Z90.49 Acquired absence of other specified parts of digestive tract; Z87.19 Personal history of other diseases of the digestive system; Z98.891 History of uterine scar from previous surgery; Z90.710 Acquired absence of both cervix and uterus; Z87.39 Personal history of other diseases of the musculoskeletal system and connective tissue; Z86.69 Personal history of other diseases of the nervous system and sense organs; Z90.89 Acquired absence of other organs; Z86.19 Personal history of other infectious and parasitic diseases; Z98.890 Other specified postprocedural states; Z88.1 Allergy status to other antibiotic agents; Z88.5 Allergy status to narcotic agent; Z88.0 Allergy status to penicillin; Z88.2 Allergy status to sulfonamides; Z88.8 Allergy status to other drugs, medicaments and biological substances; Z91.048 Other nonmedicinal substance allergy status; Z82.3 Family history of stroke; Z82.0 Family history of epilepsy and other diseases of the nervous system; Z82.49 Family history of ischemic heart disease and other diseases of the circulatory system; Z80.0 Family history of malignant neoplasm of digestive organs
CPT/HCPCS: 36415; 71045; 74019; 74176; 80048; 80053; 81003; 82150; 83605; 83690; 84484; 85025; 85610; 85730; 93005; 96361; 96374; 96375; 96376; 99285

== ENCOUNTER → 2022-01-28 | Outpatient (CLI) | payer MEDICARE, BC ==
--- NOTE | 2022-01-28 11:45 | CT ---
EXAMINATION TYPE: CT ChestAbdPelvis wo con CT DLP: 427.40 mGycm, Automated exposure control for dose reduction was used. DATE OF EXAM: 01/28/2022 11:26 AM COMPARISON: CT abdomen and pelvis 10/17/2021, CT chest abdomen and pelvis 08/01/2021. CLINICAL INDICATION:Female, 66 years old with history of C54.9 MALIGNANT NEOPLASM OF CORPUS UTERI, Ma lignant neoplasm of corpus uteri Technique: Multiple axial images of the chest, abdomen, and pelvis were obtained following without th e administration intravenous which limits evaluation. No contrast administered. Two-dimensional coron al and sagittal reconstructions were obtained. Findings: CHEST: LUNGS/ PLEURA: No pneumothorax pleural effusion. Stable 4 mm lingular groundglass density (series 4, image 38). Stable left lower lobe 7 mm pulmonary nodule (series 4, image 47). Stable left lower lobe 4 mm pulmonary nodule (series 4, image 54). No new or enlarging pulmonary nodules. Mild emphysematous changes redemonstrated. Similar scattered peripheral nodular groundglass densities from prior examin ation. AIRWAY: Patent and unremarkable.. HEART: Size within normal limits. Trace pericardial fluid/thickening, unchanged. MEDIASTINUM: No gross evidence of adenopathy. VASCULATURE: No aortic aneurysm. Redemonstrate large caliber to the main pulmonary outflow tract and main right and left pulmonary arteries measuring up to 4.7 cm suggesting pulmonary arterial hyperten jaqueline. MUSCULOSKELETAL: No acute osseous abnormalities. Chronic expanded rib deformity of the left third rib , possible Paget's disease or site of old treated disease. SOFT TISSUES/LYMPH NODES: Unremarkable. LOWER NECK: No significant findings. ABDOMEN: ABDOMEN LIVER: Stable scattered hypodensities measuring up to 1 cm suggesting benign cysts. GALLBLADDER AND BILE DUCTS: The gallbladder is surgically absent. No biliary duct dilatation. PANCREAS: Unremarkable noncontrast appearance. SPLEEN: Unremarkable noncontrast appearance. ADRENAL GLANDS: Unremarkable noncontrast appearance. KIDNEYS AND URETERS: Numerous bilateral nonobstructive renal calculi redemonstrated showing up to 5 m m. No hydronephrosis. PELVIS BLADDER: Unremarkable REPRODUCTIVE: The uterus is surgically absent. No suspicious adnexal mass. ABDOMEN & PELVIS STOMACH AND BOWEL: Stomach and duodenum are unremarkable. No focal wall thickening. Enteric contrast reaches the sigmoid colon. The appendix is within normal limits. No evidence of bowel obstruction. PERITONEUM: No evidence of pneumoperitoneum or free fluid. VASCULATURE: No evidence of aortic aneurysm. Multiple pelvic phleboliths. MUSCULOSKELETAL: No acute osseous abnormalities. No aggressive osseous lesion. LYMPH NODES: No gross evidence for lymphadenopathy. SOFT TISSUE/ABDOMINAL WALL: Unremarkable IMPRESSION: 1. Status post hysterectomy and bilateral salpingooophorectomy. No evidence for local recurrence. Chr onic expansile deformity of the left third rib. No evidence for new metastatic disease. 2. COPD changes with mild emphysema. Stable pulmonary nodules from prior examination. No new or enlar ging pulmonary nodules. 3. Similar centrilobular groundglass nodularity, possibly respiratory bronchiolitis. 4. Dilated main pulmonary artery suggestive of pulmonary arterial hypertension. 5. Numerous nonobstructive bilateral renal calculi.
== END | disposition home or self-care (01) ==
LOC: RADCTMAIN 09:17
PROVIDERS: ATTEND Internal Medicine Hematology & Oncology
DX: C54.9 Malignant neoplasm of corpus uteri, unspecified (principal); J44.9 Chronic obstructive pulmonary disease, unspecified; N20.0 Calculus of kidney
CPT/HCPCS: 71250; 74176

== ENCOUNTER → 2022-04-02 | Outpatient (CLI) | payer MEDICARE, BC ==
--- NOTE | 2022-04-03 18:51 | MM ---
Reason for Exam: Screening (asymptomatic). Last mammogram was performed 1 year(s) and 1 month(s) ago. Patient History: Menarche at age 17. First Full-Term at age 26. Left ovary removed at age 64. Right ovary removed at age 64. Hysterectomy at age 64. Postmenopausal. Patient has history of breast feeding. Currently using Estrogen, for 1 year. Paternal aunt had breast cancer, age 50. Risk Values: Stefanie 5 year model risk: 1.7%. NCI Lifetime model risk: 5.9%. Prior Study Comparison: 03/14/2019 Bilateral Screening Mammogram, [facility]. 01/09/2020 Bilateral Diagnostic Mammogram, [facility]. 03/06/2021 Bilateral Screening Mammogram, [facility]. Tissue Density: The breast tissue is heterogeneously dense. This may lower the sensitivity of mammography. Findings: Analyzed By CAD. Chronic nodularity superior left MLO view. There is no suspicious group of microcalcifications or new suspicious mass in either breast. Overall Assessment: Benign, BI-RAD 2 Management: Screening Mammogram of both breasts in 1 year. 1. Patient should continue monthly self breast exams. 2. A clinical breast exam by your physician is recommended on an annual basis. 3. This exam should not preclude additional follow-up of suspicious palpable abnormalities. Electronically signed and approved by: Suni Reeves M.D. Radiologist
== END | disposition home or self-care (01) ==
LOC: RADMAMWWP 16:34
PROVIDERS: ATTEND Obstetrics & Gynecology
DX: Z12.31 Encounter for screening mammogram for malignant neoplasm of breast (principal); Z78.0 Asymptomatic menopausal state; Z80.3 Family history of malignant neoplasm of breast; Z90.721 Acquired absence of ovaries, unilateral
CPT/HCPCS: 77063; 77067

== ENCOUNTER → 2022-05-09 | Outpatient (CLI) | payer MEDICARE, BC ==
[~2022-05-09] MED LIST changes: +DENOSUMAB 60 MG/ML 1 ML SYRINGE SQ NR; -DENOSUMAB 60 MG/ML 1 ML SYRINGE SQ ONE
[2022-05-09 11:49] VITALS: BP 119/75; PULSE 69; RESP 16; TEMP 97.7
== END ==
LOC: PROCWHC3 11:05
PROVIDERS: ATTEND Obstetrics & Gynecology
DX: M81.0 Age-related osteoporosis without current pathological fracture (principal); Z88.5 Allergy status to narcotic agent; Z91.048 Other nonmedicinal substance allergy status; Z88.1 Allergy status to other antibiotic agents; Z88.2 Allergy status to sulfonamides; Z88.0 Allergy status to penicillin; Z87.891 Personal history of nicotine dependence
CPT/HCPCS: 96372; J0897

== ENCOUNTER → 2022-10-29 | Outpatient (CLI) | payer MEDICARE, BC ==
--- NOTE | 2022-10-29 11:40 | CT ---
EXAMINATION TYPE: CT ChestAbdPelvis wo con CT DLP: 435.90 mGycm, Automated exposure control for dose reduction was used. DATE OF EXAM: 10/29/2022 11:11 AM COMPARISON: CT chest abdomen pelvis 01/28/2022, 08/01/2021. CLINICAL INDICATION:Female, 67 years old with history of C54.9, M35.3,G62.0,I27.0; PHH, OBS FOR METS. HX OF UTERINE CA. Technique: Multiple axial images of the chest, abdomen, and pelvis were obtained following without th e administration intravenous which limits evaluation. Oral contrast administered. Two-dimensional cor onal and sagittal reconstructions were obtained. Findings: CHEST: LUNGS/ PLEURA: No pneumothorax pleural effusion. Stable 4 mm lingular groundglass density (series 4, image 38). Stable left lower lobe 7 mm pulmonary nodule (series 4, image 47). Stable left lower lobe 4 mm pulmonary nodule (series 4, image 54). No new or enlarging pulmonary nodules. Mild emphysematous changes redemonstrated. Similar scattered peripheral nodular groundglass densities from prior examin ation. AIRWAY: Patent and unremarkable.. HEART: Size within normal limits. Trace pericardial fluid/thickening, unchanged. MEDIASTINUM: No gross evidence of adenopathy. VASCULATURE: No aortic aneurysm. Redemonstrated large caliber to the main pulmonary outflow tract an d main right and left pulmonary arteries measuring up to 4.4 cm suggesting pulmonary arterial hyperte nsion. MUSCULOSKELETAL: No acute osseous abnormalities. Chronic expanded rib deformity of the left third rib , possible Paget's disease or site of old treated disease. SOFT TISSUES/LYMPH NODES: Unremarkable. LOWER NECK: No significant findings. ABDOMEN: ABDOMEN LIVER: Stable scattered hypodensities measuring up to 1 cm suggesting benign cysts. GALLBLADDER AND BILE DUCTS: The gallbladder is surgically absent. No biliary duct dilatation. PANCREAS: Unremarkable noncontrast appearance. SPLEEN: Unremarkable noncontrast appearance. ADRENAL GLANDS: Unremarkable noncontrast appearance. KIDNEYS AND URETERS: Numerous bilateral nonobstructive renal calculi redemonstrated showing up to 5 m m. No hydronephrosis. PELVIS BLADDER: Unremarkable REPRODUCTIVE: The uterus is surgically absent. No suspicious adnexal mass. ABDOMEN & PELVIS STOMACH AND BOWEL: Stomach and duodenum are unremarkable. No focal wall thickening. Enteric contrast reaches the sigmoid colon. The appendix is within normal limits. No evidence of bowel obstruction. PERITONEUM: No evidence of pneumoperitoneum or free fluid. VASCULATURE: No evidence of aortic aneurysm. Multiple pelvic phleboliths. MUSCULOSKELETAL: No acute osseous abnormalities. No aggressive osseous lesion. LYMPH NODES: No gross evidence for lymphadenopathy. SOFT TISSUE/ABDOMINAL WALL: Unremarkable IMPRESSION: 1. Status post hysterectomy and bilateral salpingooophorectomy. No evidence for local recurrence. Chr onic expansile deformity of the left third rib. No evidence for new metastatic disease. 2. COPD changes with mild emphysema. Stable pulmonary nodules from prior examination. No new or enlar ging pulmonary nodules. 3. Nonobstructive bilateral renal calculi.
== END | disposition home or self-care (01) ==
LOC: RADCTMAIN 09:20
PROVIDERS: ATTEND Internal Medicine Hematology & Oncology
DX: C54.9 Malignant neoplasm of corpus uteri, unspecified (principal); J43.9 Emphysema, unspecified; N20.0 Calculus of kidney; R91.8 Other nonspecific abnormal finding of lung field; Z90.710 Acquired absence of both cervix and uterus
CPT/HCPCS: 71250; 74176

== ENCOUNTER 2022-11-04 09:12 | Day surgery (SDC) | payer MEDICARE, BC ==
[2022-10-30 10:56] VITALS: BMI 22.4
[~2022-11-04 09:12] MED LIST changes: -DENOSUMAB 60 MG/ML 1 ML SYRINGE SQ NR; +LACTATED RINGERS 1,000 ML IV SCH; +LIDOCAINE 1% (10MG/ML) FOR IV START INTRADERMA PRN
[2022-11-04 10:10] VITALS: TEMP 97.5
[2022-11-04 10:27] LABS: Glucose,Whole Blood 86 mg/dL (70-110)
[2022-11-04] MEDS ORDERED: PROPOFOL 10 MG/ML 20 ML VIAL IV ONE (10:54)
[2022-11-04] MEDS ORDERED: LIDOCAINE 2% INJ 20 MG/ML (2 ML VIAL) ONE (10:54)
--- NOTE | 2022-11-04 11:01 | P.PCN ---
Date of Procedure: 11/04/22 Procedure(s) Performed: BRIEF HISTORY: Patient is a 67-year-old, pleasant, white female scheduled for an upper endoscopy as a part of evaluation of epigastric pain and abdominal bloating for the last several months duration and also has been complaining of intermittent loose bowel movements daily. Last colonoscopy was unremarkable.. PROCEDURE PERFORMED: Esophagogastroduodenoscopy with biopsy. PREOPERATIVE DIAGNOSIS: Epigastric pain, abdominal bloating and diarrhea. IV sedation per anesthesia. PROCEDURE: After informed consent was obtained, the patient was brought into the endoscopy unit. IV sedation was administered by Anesthesia under continuous monitoring. Initially the Olympus GIF-140 video endoscope was inserted into the mouth. Esophagus intubated without any difficulty. It was gradually advanced into the stomach and duodenum and carefully examined. The bulb and the second part of the duodenum appeared normal. Abscesses were done from the duodenum to rule out celiac disease. The scope at this time was withdrawn to the stomach, adequately insufflated with air, and upon careful examination, mucosa of the antrum, patchy areas of erythema consistent with gastritis and biopsies were done from this area. Mucosa of the body, cardia and the fundus appeared normal. The scope was then withdrawn into the esophagus. The GE junction was located at 39 cm from the incisors. The esophagus appeared normal. Biopsies were done from the distal esophagus. There were no erosions or ulcerations seen and the patient tolerated the procedure well. IMPRESSION: 1..Mild antral gastritis 2. No evidence of esophagitis or peptic ulcer disease RECOMMENDATIONS: The findings of this examination were discussed with the patient as well as some her family. She was advised to follow with the biopsy results. She'll be seen in office in 3-4 weeks.
[2022-11-04 11:12] VITALS: RESP 16
[2022-11-04 11:36] VITALS: BP 108/64; PULSE 65
== END 2022-11-04 11:44 | disposition home or self-care (01) ==
LOC: ORWHC2ENDO 09:12
PROVIDERS: ATTEND Internal Medicine Gastroenterology
DX: K29.50 Unspecified chronic gastritis without bleeding (principal); E78.5 Hyperlipidemia, unspecified; M19.90 Unspecified osteoarthritis, unspecified site; K21.9 Gastro-esophageal reflux disease without esophagitis; Z87.891 Personal history of nicotine dependence; Z88.0 Allergy status to penicillin; Z79.82 Long term (current) use of aspirin; Z79.899 Other long term (current) drug therapy
CPT/HCPCS: 88305; 43239; J2704; J2001

== ENCOUNTER → 2022-11-28 | Outpatient (CLI) | payer MEDICARE, BC | END | disposition home or self-care (01) | LOC: LABWHC1 12:08 | PROVIDERS: ATTEND Internal Medicine Nephrology | DX: E87.6 Hypokalemia (principal) | CPT/HCPCS: 36415; 84132 ==

== ENCOUNTER → 2023-02-24 | Outpatient (CLI) | payer MEDICARE, BC ==
[2023-02-24 12:01] LABS: Creatinine,Urine Random 51.7 mg/dL; Protein/Creatinine Ratio,Urine 0.135
[2023-02-24 15:39] LABS: Basophils # (A) 0.04 X 10*3/uL (0.00-0.10); Basophils % (A) 0.5 %; Eosinophils # (A) 0.28 X 10*3/uL (0.04-0.35); Eosinophils % (A) 3.7 %; HCT 40.8 % (37.2-46.3); HGB 12.8 d/dL (12.0-15.0); Lymphocytes # (A) 1.38 X 10*3/uL (0.90-5.00); Lymphocytes % (A) 18.1 %; MCH 29.1 pg (27.0-32.0); MCHC 31.4 d/dL (32.0-37.0); MCV 92.7 FL (80.0-97.0); Mean Platelet Volume 11.1 FL (9.5-12.2); Monocytes # (A) 0.47 X 10*3/uL (0.20-1.00); Monocytes % (A) 6.2 %; NRBC Per 100 WBC 0 X 10*3/uL (0.00-0.01); Neutrophils # (A) 5.42 X 10*3/uL (1.80-7.70); Neutrophils % (A) 71.2 %; Platelet Count 235 X 10*3/uL (140-440); RDW 13.5 % (11.5-14.5); WBC 7.61 X 10*3/uL (4.50-10.00)
[2023-02-24 17:06] LABS: Appearance,Urine Clear (Clear); Bilirubin,Urine Negative (Negative); Blood,Urine Negative (Negative); Color,Urine Yellow (Yellow); Ketones,Urine Negative (Negative); Nitrite,Urine Negative (Negative); PH, Urine 8.5; Specific Gravity,Urine 1.012 (1.001-1.030)
[2023-02-24 18:48] LABS: % Iron Saturation 17.94 (12.00-45.00); Albumin 4.6 d/dL (3.8-4.9); BUN/Creat Ratio 17.11 Ratio (12.00-20.00); Blood Urea Nitrogen 15.4 mg/dL (9.0-27.0); Calcium 10.1 mg/dL (8.7-10.3); Carbon Dioxide 26.4 mmol/L (21.6-31.8); Chloride 97 mmol/L (96-109); Ferritin 35.3 ng/mL (10.0-291.0); Glucose 100 mg/dL (70-110); Iron 61 UG/DL (50-170); Magnesium 2.2 mg/dL (1.5-2.4); Phosphorus 4.1 mg/dL (2.4-5.1); Potassium 5.4 mmol/L (3.5-5.5); Sodium 139 mmol/L (135-145); Total Iron Binding Capacity 340 UG/DL (228-460); Uric Acid 4.6 mg/dL (2.9-7.7)
== END | disposition home or self-care (01) ==
LOC: LABWHC1 09:51
PROVIDERS: ATTEND Internal Medicine Nephrology
DX: E55.9 Vitamin D deficiency, unspecified (principal); N25.81 Secondary hyperparathyroidism of renal origin; M10.9 Gout, unspecified; N39.0 Urinary tract infection, site not specified; N18.1 Chronic kidney disease, stage 1; D63.1 Anemia in chronic kidney disease; R80.9 Proteinuria, unspecified
CPT/HCPCS: 36415; 80048; 81003; 82040; 82306; 82570; 82728; 83540; 83550; 83735; 83970; 84100; 84156; 84550; 85025

== ENCOUNTER → 2023-02-27 | Outpatient (CLI) | payer MEDICARE, BC ==
--- NOTE | 2023-02-27 12:07 | US ---
EXAMINATION TYPE: US abdomen complete DATE OF EXAM: 02/27/2023 COMPARISON: NONE CLINICAL INDICATION: Female, 67 years old with history of R10.9 UNSPECIFIED ABDOMINAL PAIN; LUQ pain. Patient states pain comes and goes. TECHNIQUE: Multiple sonographic images of the abdomen are obtained. FINDINGS: EXAM MEASUREMENTS: Liver Length: 14.8 cm CBD: 0.3 cm Spleen: 9.4 cm Right Kidney: 9.6 x 3.5 x 4.9 cm Left Kidney: 9.8 x 5.1 x 4.6 cm DRILL FOREMAN NOTES: Patient unable to adequately hold breath for imaging Pancreas: Obscured by bowel gas Liver: wnl Gallbladder: Surgically absent Evidence for sonographic Su's sign: No CBD: wnl Spleen: wnl Right Kidney: Inf cystic structure measuring 1.1 x 1.0 x 1.3cm, previously measured 1.5 x 1.0 x 1.2c m. Sup/med cystic structure measuring 1.5 x 1.2 x 1.3cm. Left Kidney: Sup/mid cystic structure measuring 1.1 x 1.3 x 1.3cm, previously measured 1.5 x 1.3 x 1 .3cm. Inferior complex cystic structure may have a septation measuring 1.0 x 0.9 x 1.2cm. Close fol low-up is recommended. Upper IVC: wnl Abd Aorta: wnl IMPRESSION: 1. Suspected complex cyst inferior pole left kidney. Follow-up exam in 6 months is recommended. 2. Additional more simple appearing cyst bilateral kidneys.
== END | disposition home or self-care (01) ==
LOC: RADUSWWP 10:42
PROVIDERS: ATTEND Internal Medicine Geriatric Medicine
DX: R10.12 Left upper quadrant pain (principal); Z90.49 Acquired absence of other specified parts of digestive tract
CPT/HCPCS: 76700

== ENCOUNTER → 2023-05-04 | Outpatient (CLI) | payer MEDICARE, BC | END | disposition home or self-care (01) | LOC: LABWHC1 13:08 | PROVIDERS: ATTEND Internal Medicine Nephrology | DX: E87.6 Hypokalemia (principal) | CPT/HCPCS: 36415; 84132 ==

== ENCOUNTER → 2023-05-04 | Outpatient (CLI) | payer MEDICARE, BC ==
--- NOTE | 2023-05-08 18:08 | CT ---
EXAMINATION TYPE: CT ChestAbdPelvis wo con CT DLP: 1307 mGycm, Automated exposure control for dose reduction was used. DATE OF EXAM: 05/04/2023 2:47 PM COMPARISON: CT chest abdomen pelvis without contrast 10/29/2022 , and before. Oldest study outside [facility] t x-ray 07/29/2010 CLINICAL INDICATION:Female, 68 years old with history of E04.1 NONTOXIC SINGLE THYROID NODULE; PHH, f ollow up on uterine cancer TECHNIQUE: Multiple axial images of the chest, abdomen, and pelvis were obtained. Two-dimensional cor onal and sagittal reconstructions were obtained. Contrast used: mL of , Oral contrast used: with Oral Contrast FINDINGS: CHEST: Examination limited by lack of IV contrast. LUNGS/ PLEURA: Scattered areas of mild scarring and groundglass opacity are unchanged. A few scattere d subcentimeter pulmonary nodules are redemonstrated, unchanged. Largest in the left lower lobe is so lid and ovoid image 53 series 4 measuring 6 mm in greatest dimension. Another tiny left lower lobe no dule image 55 is stable. A 3 to 4 mm nodular density image 60 is stable. In the left upper lobe, the previous 5 mm lingular groundglass nodule seen on prior image 38 is currently seen on image 44 and ap pears similar in size but slightly less conspicuous likely due to slice selection or could be resolvi ng. No new or enlarging nodules. No consolidation, pleural effusion, pneumothorax. AIRWAY: Central airways are patent. LOWER NECK: Thyroid grossly stable.. MEDIASTINUM: No gross evidence of adenopathy. HEART: Mild cardiomegaly. No significant coronary artery calcification.. Trace pericardial effusion. VASCULATURE: Mild atherosclerotic calcifications of the aorta and branches. Ascending aorta is 3 CM, descending is 2.7 CM. Aorta is considered normal in size. Pulmonary trunk measures about 4.6 CM, st able to slightly increased (measured 4.4 cm previously). The pulmonary trunk is enlarged (>3cm), this can be seen with pulmonary hypertension. Vessels otherwise not further assessed without IV contrast. SOFT TISSUES/LYMPH NODES: Unremarkable soft tissues. No axillary adenopathy. MUSCULOSKELETAL: Osseous structures appear unchanged. Mild degenerative changes of the spine and SI j oints. Stable appearance of left third rib expansile lobular lesion with cortical expansion without b reakthrough and central predominantly groundglass opacity; likely considerations include fibrous dysp lasia, Paget's disease, and the sort. Less likely treated metastases. No new or destructive bony lesi on is encountered. OTHER: No other significant finding. ABDOMEN PELVIS: ABDOMEN LIVER: Tiny hypodense liver lesions are not fully characterized but appear grossly stable and probabl y benign. GALLBLADDER AND BILE DUCTS: The gallbladder is surgically absent. PANCREAS: Unremarkable. SPLEEN: Unremarkable. ADRENAL GLANDS: Unremarkable.. KIDNEYS AND URETERS: Several small renal calculi bilaterally, similar to previous. Largest in the mid right kidney measures about 3 mm. Stable small round 1.1 cm hypodensity extending exophytically from the anterior right kidney, probably a cyst. Similar appearance of mildly prominent bilateral renal p elves without dilated ureters seen. PELVIS BLADDER: Incompletely distended but grossly unremarkable. REPRODUCTIVE: Stable post hysterectomy (and probably bilateral salpingo-oophorectomy) appearance. Mul tiple pelvic phleboliths. ABDOMEN & PELVIS STOMACH AND BOWEL: Stomach and duodenum partially distended with contrast. Contrast traverses the sma ll bowel loops, not yet reaching the colon but there is no evidence of a small bowel obstruction. The appendix appears within normal limits. Mild/moderate stool in the proximal colon with relatively les s distally, no focal inflammatory process is seen. PERITONEUM/RETROPERITONEUM: No evidence of pneumoperitoneum or free fluid. VASCULATURE: Mild atherosclerotic calcifications are present throughout the abdominal aorta and its b ranches. No AAA. MUSCULOSKELETAL: Osseous structures appear unchanged. Mild degenerative changes of the spine and SI j oints. Stable tiny sclerotic foci in the proximal right femoral shaft and left pubic bone. No new or destructive bony lesion is encountered. LYMPH NODES: No evidence of lymphadenopathy. SOFT TISSUES/ABDOMINAL WALL: No acute abnormality. Stable tiny umbilical region hernia. OTHER: No other significant finding. IMPRESSION: 1. Overall stable appearance, without evidence of new or worsening metastatic disease. 2. Stable scattered subcentimeter lung nodules. No new or enlarging lesions. 3. Relatively stable enlarged pulmonary trunk, which can be seen with pulmonary hypertension. 4. Status post hysterectomy and bilateral salpingo-oophorectomy. 5. Stable small hypodense hepatic nodules, likely benign and probably cysts. 6. Nonobstructing small bilateral renal calculi.
== END | disposition home or self-care (01) ==
LOC: RADCTMAIN 12:58
PROVIDERS: ATTEND Internal Medicine Hematology & Oncology
DX: N20.0 Calculus of kidney (principal); K76.89 Other specified diseases of liver; R91.8 Other nonspecific abnormal finding of lung field; C54.9 Malignant neoplasm of corpus uteri, unspecified; M35.3 Polymyalgia rheumatica; G62.0 Drug-induced polyneuropathy; I27.0 Primary pulmonary hypertension; Z90.710 Acquired absence of both cervix and uterus; Z90.722 Acquired absence of ovaries, bilateral
CPT/HCPCS: 71250; 74176

== ENCOUNTER → 2023-05-12 | Outpatient (CLI) | payer MEDICARE, BC ==
--- NOTE | 2023-05-12 13:47 | MM ---
Reason for Exam: Screening (asymptomatic). Last mammogram was performed 1 year(s) and 1 month(s) ago. Patient History: Menarche at age 17. First Full-Term at age 26. Left ovary removed at age 64. Right ovary removed at age 64. Hysterectomy at age 64. Postmenopausal. Patient has history of breast feeding. Currently using Estrogen, for 1 year. Paternal aunt had breast cancer, age 50. Risk Values: Stefanie 5 year model risk: 1.7%. NCI Lifetime model risk: 5.6%. Prior Study Comparison: 01/09/2020 Bilateral Diagnostic Mammogram, [facility]. 03/06/2021 Bilateral Screening Mammogram, [facility]. 04/02/2022 Bilateral MG 3D screening mammo w/cad, [facility]. Tissue Density: The breast tissue is heterogeneously dense. This may lower the sensitivity of mammography. Findings: Analyzed By CAD. There is no suspicious group of microcalcifications or new suspicious mass. Overall Assessment: Negative, BI-RAD 1 Management: Screening Mammogram of both breasts in [address] [facility] will attempt to contact patient to return for supplemental views and ultrasound if indicated. Patient should continue monthly self-breast exams. A clinical breast exam by your physician is recommended on an annual basis. This exam should not preclude additional follow-up of suspicious palpable abnormalities. Note on Stefanie scores and lifetime risk: 1. A Stefanie score greater than 3% is considered moderate risk. If this is the case, consider specialist referral to assess eligibility for a risk reducing agent. 2. If overall lifetime risk for the development of breast cancer is 20% or higher, the patient may qualify for future screening with alternating mammogram and breast MRI. Electronically signed and approved by: Demetrius Harkins DO
== END | disposition home or self-care (01) ==
LOC: RADMAMWWP 10:53
PROVIDERS: ATTEND Obstetrics & Gynecology
DX: Z12.31 Encounter for screening mammogram for malignant neoplasm of breast (principal); Z78.0 Asymptomatic menopausal state; Z80.3 Family history of malignant neoplasm of breast
CPT/HCPCS: 77063; 77067

== ENCOUNTER → 2023-06-04 | Outpatient (CLI) | payer MEDICARE, BC ==
[2023-06-05 03:00] LABS: BUN/Creat Ratio 17.12 Ratio (12.00-20.00); Blood Urea Nitrogen 13.7 mg/dL (9.0-27.0); Chloride 105 mmol/L (96-109); Glucose 95 mg/dL (70-110); Phosphorus 3.2 mg/dL (2.4-5.1); Potassium 4.4 mmol/L (3.5-5.5); Sodium 139 mmol/L (135-145); Uric Acid 5.1 mg/dL (2.9-7.7)
[2023-06-05 03:01] LABS: ALT 15 U/L (8-44); AST 18 U/L (13-35); Albumin 4.2 g/dL (3.8-4.9); Albumin/Globulin Ratio 2.33 Ratio (1.60-3.17); Alkaline Phosphatase 71 U/L (41-126); Calcium 9.4 mg/dL (8.7-10.3); Carbon Dioxide 24.5 mmol/L (21.6-31.8); Globulin 1.8 g/dL (1.6-3.3); Total Bilirubin 0.2 mg/dL (0.3-1.2)
== END | disposition home or self-care (01) ==
LOC: LABWHC1 15:11
PROVIDERS: ATTEND Internal Medicine Nephrology
DX: N20.0 Calculus of kidney (principal)
CPT/HCPCS: 36415; 80053; 83970; 84100; 84550

== ENCOUNTER → 2023-06-04 | Outpatient (CLI) | payer MEDICARE, BC ==
--- NOTE | 2023-06-04 15:09 | US ---
EXAMINATION TYPE: US kidneys/renal and bladder DATE OF EXAM: 06/04/2023 COMPARISON: 02/27/2023 - US Abdomen Complete 11/28/2019 - US KRB 02/25/2019 - US KRB 07/24/2016 - US KRB 07/20/2015 - US KRB CLINICAL INDICATION: Female, 68 years old with history of N20.0 CALCULUS OF KIDNEY; Hx renal stones; Patient denies any other signs or symptoms at this time EXAM MEASUREMENTS: Right Kidney: 9.8 x 4.6 x 6.2 cm Left Kidney: 10.3 x 5.0 x 5.4 cm Post Void Residual Volume: NA mL Right Kidney: Subcentimeter cyst noted Left Kidney: ? Multiple stones seen Bladder: Not fully distended Bilateral Jets seen: Yes Normal Post Void Residual: NA There is no evidence for hydronephrosis at this point in time. No solid masses are identified. The urinary bladder is anechoic. Bilateral ureteral jets are seen. IMPRESSION: Left Sided nephrolithiasis. Simple cyst right kidney.
== END | disposition home or self-care (01) ==
LOC: RADUSWWP 14:47
PROVIDERS: ATTEND Internal Medicine Nephrology
DX: N20.0 Calculus of kidney (principal); N28.1 Cyst of kidney, acquired
CPT/HCPCS: 76770

== ENCOUNTER → 2023-09-10 | Outpatient (CLI) | payer MEDICARE, BC ==
[2023-09-10 15:21] LABS: ALT 13 U/L (8-44); AST 20 U/L (13-35); Albumin 4.8 g/dL (3.8-4.9); Albumin/Globulin Ratio 2.29 Ratio (1.60-3.17); Alkaline Phosphatase 98 U/L (41-126); BUN/Creat Ratio 15.82 Ratio (12.00-20.00); Blood Urea Nitrogen 17.4 mg/dL (9.0-27.0); Chloride 94 mmol/L (96-109); Globulin 2.1 g/dL (1.6-3.3); Glucose 96 mg/dL (70-110); Phosphorus 3.7 mg/dL (2.4-5.1); Potassium 3.4 mmol/L (3.5-5.5); Sodium 137 mmol/L (135-145); Total Bilirubin 0.4 mg/dL (0.3-1.2); Total Protein 6.9 g/dL (6.2-8.2); Uric Acid 6.6 mg/dL (2.9-7.7)
== END | disposition home or self-care (01) ==
LOC: LABWHC1 09:38
PROVIDERS: ATTEND Internal Medicine Nephrology
DX: E87.5 Hyperkalemia (principal); E87.3 Alkalosis; N20.0 Calculus of kidney; R82.994 Hypercalciuria
CPT/HCPCS: 36415; 80053; 83970; 84100; 84550

== ENCOUNTER 2023-09-21 17:34 | Inpatient (IN) | payer MEDICARE, BC ==
--- NOTE | 2023-09-21 17:53 | ED ---
General Adult HPI - General Chief complaint: Weakness Stated complaint: Weakness Time Seen by Provider: 09/21/23 17:43 Source: patient, family, RN/MD, RN notes reviewed Mode of arrival: ambulatory Limitations: no limitations - History of Present Illness Initial comments: Patient is a pleasant 68-year-old female present to the emergency department with weakness. Patient has been weak for the past day. Patient has associated dysuria. Patient did vomit 1 time prior to arrival. Patient has a recent diagnosis of adrenal insufficiency. Patient has been on steroid for the past month. No fever. Weakness is generalized. - Related Data Home Medications Medication Instructions Recorded Confirmed Macitentan [Opsumit] 10 mg PO DAILY 09/22/13 09/21/23 Sildenafil [Revatio] 20 mg PO TID 06/12/18 09/21/23 Omeprazole [PriLOSEC] 40 mg PO DAILY 04/25/20 09/21/23 ALPRAZolam [Xanax] 0.25 mg PO BID PRN 10/17/21 09/21/23 Ezetimibe [Zetia] 10 mg PO DAILY 10/17/21 09/21/23 FLUoxetine HCL [PROzac] 40 mg PO DAILY 10/17/21 09/21/23 Gabapentin 600 mg PO TID 10/17/21 09/21/23 Multivit with Calcium,Iron,Min 1 tab PO DAILY 10/30/22 09/21/23 [Women's Multivitamin] Acetaminophen [Tylenol Extra 1,000 mg PO BID PRN 09/21/23 09/21/23 Strength] Chlorthalidone [Hygroton] 25 mg PO DAILY 09/21/23 09/21/23 Cholecalciferol (Vitamin D3) 1,250 mcg PO WE 09/21/23 09/21/23 [Vitamin D3 (1250 Mcg = 50,000 Iu)] Denosumab [Prolia] 60 mg SQ Q182D 09/21/23 09/21/23 Fludrocortisone [Florinef] 0.05 mg PO BID 09/21/23 09/21/23 Hydrocortisone [Cortef] 10 mg PO BID 09/21/23 09/21/23 Nitrofurantoin Monohyd/M-Cryst 100 mg PO Q12HR 09/21/23 09/21/23 [Macrobid] Ondansetron Odt [Zofran Odt] 4 mg PO Q8HR PRN 09/21/23 09/21/23 Potassium Citrate [Potassium 20 meq PO BID 09/21/23 09/21/23 Citrate ER] Allergies Allergy/AdvReac Type Severity Reaction Status Date / Time hydrocodone bitartrate Allergy Mild Nausea & Verified 09/21/23 19:15 [From Vicodin] Vomiting adhesive tape Allergy Rash/Hives Verified 09/21/23 19:15 levofloxacin [From Levaquin] Allergy Anaphylaxis Verified 09/21/23 19:15 Penicillins Allergy Rash/Hives Verified 09/21/23 19:15 Quinolones Allergy AFFECTS Verified 09/21/23 19:15 HEART RHYTHM Sulfa (Sulfonamide Allergy Rash/Hives Verified 09/21/23 19:15 Antibiotics) morphine AdvReac Severe stomach Verified 09/21/23 19:15 pain Review of Systems ROS Statement: Those systems with pertinent positive or pertinent negative responses have been documented in the HPI. ROS Other: All systems not noted in ROS Statement are negative. Constitutional: Denies: fever Eyes: Denies: eye pain ENT: Denies: ear pain Respiratory: Denies: cough, dyspnea Cardiovascular: Denies: chest pain Endocrine: Reports: as per HPI, fatigue Gastrointestinal: Denies: abdominal pain Genitourinary: Reports: dysuria Musculoskeletal: Denies: back pain Neurological: Reports: as per HPI. 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 MIGRAINE HEADACHE, UTERINE CANCER, POLY MYALGIA RHEUMATICA, History of Any Multi-Drug Resistant Organisms: None Reported Past Surgical History: Section, Cholecystectomy, Hysterectomy, Orthopedic Surgery, Tonsillectomy Additional Past Surgical History / Comment(s): X 4, RT KNEE SURGERY, D & C , colonosopy and bilateral tubes in ears.LITHROTRIPSY Past Anesthesia/Blood Transfusion Reactions: Postoperative Nausea & Vomiting (PONV) Past Psychological History: Anxiety, Depression Past Alcohol Use History: None Reported - Past Family History Mother Family Medical History: AFIB, CVA/TIA, Neurologic Disorder Additional Family Medical History / Comment(s): HX PARKINSON'S Father Family Medical History: Cancer, CVA/TIA, Myocardial Infarction ([place]) Additional Family Medical History / Comment(s): HEART DISEASE , PANCREAS-CANCER General Exam Limitations: no limitations General appearance: alert, in no apparent distress Head exam: Present: normocephalic Eye exam: Present: normal appearance ENT exam: Present: normal oropharynx Neck exam: Present: normal inspection Respiratory exam: Present: normal lung sounds bilaterally Cardiovascular Exam: Present: regular rate, normal rhythm GI/Abdominal exam: Present: soft. Absent: tenderness Extremities exam: Present: normal inspection Neurological exam: Present: alert. Absent: motor sensory deficit Expanded Neurological exam: Present: protecting the airway Speech: Present: fluid speech Motor strength exam: RUE: 5, LUE: 5, RLE: 5, LLE: 5 Eye Response: (4) open spontaneously Motor Response: (6) obeys commands Verbal Response: (5) oriented Psychiatric exam: Present: normal affect, normal mood Skin exam: Present: normal color Course Vital Signs 09/21/23 17:36 Temperature 98.2 F Pulse Rate 55 L Respiratory 20 Rate Blood Pressure 83/59 O2 Sat by Pulse 98 Oximetry EKG Findings - EKG Results: EKG: interpreted by ERMD (Superior axis. Borderline inferior ST depression. T wave inversion V2 and V6.), sinus rhythm Medical Decision Making - Medical Decision Making Was pt. sent in by a medical professional or institution ([facility], DISABILITY EXAMINER, urgent care, hospital, or prison...) When possible be specific @ -No Did you speak to anyone other than the patient for history (EMS, parent, family, police, friend...)? What history was obtained from this source @ -Additional history taken from family including patient's symptoms Did you review nursing and triage notes (agree or disagree)? Why? @ -I reviewed and agree with nursing and triage notes Were old charts reviewed (outside hosp., previous admission, EMS record, old EKG, old radiological studies, urgent care reports/EKG's, prison records)? Report findings @ -No old charts were reviewed Differential Diagnosis (chest pain, altered mental status, abdominal pain women, abdominal pain men, vaginal bleeding, weakness, fever, dyspnea, syncope, headache, dizziness, GI bleed, back pain, seizure, CVA, palpatations, mental health, musculoskeletal)? @ -Differential Abdominal Pain Women: Appendicitis, Cholecystitis, diverticulosis, ischemic bowel, pancreatitis, hepatitis, UTI, gastroenteritis, AAA, incarcerated hernia, bowel obstruction, constipation, inflammatory bowel, hepatitis, peptic ulcer disease, splenic infarction, perforated viscus, vulvitis, ovarian torsion, PID, kidney stone, placenta abruption, this is not meant to be an all-inclusive list EKG interpreted by me (3pts min.). @ -As above X-rays interpreted by me (1pt min.). @ -Chest x-ray shows no acute process CT interpreted by me (1pt min.). @ -None done U/S interpreted by me (1pt. min.). @ -None done What testing was considered but not performed or refused? (CT, X-rays, U/S, labs)? Why? @ -CT scan of abdomen and pelvis to be ordered What meds were considered but not given or refused? Why? @ -None Did you discuss the management of the patient with other professionals (professionals i.e. , PA, DISABILITY EXAMINER, lab, RT, psych nurse, administrator social welfare, insurance verification clerk, teacher, combatant diver officer, case mgr)? Give summary @ -Case discussed with Dr. Barnett who will admit covering Dr. jean-baptiste @ -No Was critical care preformed (if so, how long)? @ -No Were there social determinants of health that impacted care today? How? (Homelessness, low income, unemployed, alcoholism, drug addiction, transportation, low edu. Level, literacy, decrease access to med. care, care home, rehab)? @ -No Was there de-escalation of care discussed even if they declined (Discuss DNR or withdrawal of care, Hospice)? DNR status @ -No What co-morbidities impacted this encounter? (DM, HTN, Smoking, COPD, CAD, Can cer, CVA, ARF, Chemo, Hep., AIDS, mental health diagnosis, sleep apnea, morbid obesity)? @ -Adrenal insufficiency Was patient admitted / discharged? Hospital course, mention meds given and route, prescriptions, significant lab abnormalities, going to OR and other pertinent info. @ -Patient reevaluated and resting comfortably in bed. Patient is feeling somewhat better. Patient and family updated on results and plan. Patient has history of adrenal sufficiency with vomiting. Patient will be provided additional fluids and steroids. CT scan abdomen pelvis will be ordered secondary to patient having hematuria with some sensation of suprapubic pressure. Undiagnosed new problem with uncertain prognosis? @ -No Drug Therapy requiring intensive monitoring for toxicity (Heparin, Nitro, Insulin, Cardizem)? @ -No Were any procedures done? @ -No Diagnosis/symptom? @ -Vomiting Acute, or Chronic, or Acute on Chronic? @ -Acute Uncomplicated (without systemic symptoms) or Complicated (systemic symptoms)? @ -Default Side effects of treatment? @ -No Exacerbation, Progression, or Severe Exacerbation? @ -No Poses a threat to life or bodily function? How? (Chest pain, [place], [place], pneumonia, PE, COPD, DKA, ARF, appy, cholecystitis, CVA, Diverticulitis, Homicidal, Suicidal, threat to staff... and all critical care pts) @ -No - Lab Data Result diagrams: 09/21/23 17:58 09/21/23 17:58 Lab Results 09/21/23 09/21/23 09/21/23 Range/Units 17:58 17:58 17:58 WBC 18.9 H (3.8-10.6) k/uL RBC 5.65 H (3.80-5.40) m/uL Hgb 15.9 (11.4-16.0) gm/dL Hct 49.3 H (34.0-46.0) % MCV 87.1 (80.0-100.0) fL MCH 28.2 (25.0-35.0) pg MCHC 32.4 (31.0-37.0) g/dL RDW 13.0 (11.5-15.5) % Plt Count 277 (150-450) k/uL MPV 8.6 Neutrophils % 87 % Lymphocytes % 7 % Monocytes % 3 % Eosinophils % 2 % Basophils % 0 % Neutrophils # 16.5 H (1.3-7.7) k/uL Lymphocytes # 1.4 (1.0-4.8) k/uL Monocytes # 0.5 (0-1.0) k/uL Eosinophils # 0.3 (0-0.7) k/uL Basophils # 0.0 (0-0.2) k/uL PT 9.7 L (10.0-12.5) sec INR 0.9 (<1.2) APTT 22.6 (22.0-30.0) sec Sodium (137-145) mmol/L Potassium (3.5-5.1) mmol/L Chloride (98-107) mmol/L Carbon Dioxide (22-30) mmol/L Anion Gap mmol/L BUN (7-17) mg/dL Creatinine (0.52-1.04) mg/dL Est GFR (CKD-EPI)AfAm (>60 ml/min/1.73 sqM) Est GFR (CKD-EPI)NonAf (>60 ml/min/1.73 sqM) Glucose (74-99) mg/dL Plasma Lactic Acid Iglesia (0.7-2.0) mmol/L Calcium (8.4-10.2) mg/dL Phosphorus (2.5-4.5) mg/dL Magnesium (1.6-2.3) mg/dL Total Bilirubin (0.2-1.3) mg/dL AST (14-36) U/L ALT (4-34) U/L Alkaline Phosphatase (38-126) U/L Troponin I (0.000-0.034) ng/mL Total Protein (6.3-8.2) g/dL Albumin (3.5-5.0) g/dL TSH (0.465-4.680) mIU/L Free T4 (0.78-2.19) ng/dL Urine Color Dark Ramsay Urine Appearance Cloudy H (Clear) Urine RBC >182 H (0-5) /hpf Urine WBC 3 (0-5) /hpf Ur Squamous Epith Cells <1 (0-4) /hpf Hyaline Casts 23 H (0-2) /lpf Urine Mucus Occasional H (None) /hpf 09/21/23 09/21/23 09/21/23 Range/Units 17:58 17:58 17:58 WBC (3.8-10.6) k/uL RBC (3.80-5.40) m/uL Hgb (11.4-16.0) gm/dL Hct (34.0-46.0) % MCV (80.0-100.0) fL MCH (25.0-35.0) pg MCHC (31.0-37.0) g/dL RDW (11.5-15.5) % Plt Count (150-450) k/uL MPV Neutrophils % % Lymphocytes % % Monocytes % % Eosinophils % % Basophils % % Neutrophils # (1.3-7.7) k/uL Lymphocytes # (1.0-4.8) k/uL Monocytes # (0-1.0) k/uL Eosinophils # (0-0.7) k/uL Basophils # (0-0.2) k/uL PT (10.0-12.5) sec INR (<1.2) APTT (22.0-30.0) sec Sodium 133 L (137-145) mmol/L Potassium 4.0 (3.5-5.1) mmol/L Chloride 90 L (98-107) mmol/L Carbon Dioxide 31 H (22-30) mmol/L Anion Gap 12 mmol/L BUN 24 H (7-17) mg/dL Creatinine 0.91 (0.52-1.04) mg/dL Est GFR (CKD-EPI)AfAm 75 (>60 ml/min/1.73 sqM) Est GFR (CKD-EPI)NonAf 65 (>60 ml/min/1.73 sqM) Glucose 121 H (74-99) mg/dL Plasma Lactic Acid Iglesia 2.2 H* (0.7-2.0) mmol/L Calcium 10.2 (8.4-10.2) mg/dL Phosphorus 3.3 (2.5-4.5) mg/dL Magnesium 1.5 L (1.6-2.3) mg/dL Total Bilirubin 1.0 (0.2-1.3) mg/dL AST 30 (14-36) U/L ALT 16 (4-34) U/L Alkaline Phosphatase 100 (38-126) U/L Troponin I <0.012 (0.000-0.034) ng/mL Total Protein 7.5 (6.3-8.2) g/dL Albumin 4.8 (3.5-5.0) g/dL TSH 2.260 (0.465-4.680) mIU/L Free T4 1.29 (0.78-2.19) ng/dL Urine Color Urine Appearance (Clear) Urine RBC (0-5) /hpf Urine WBC (0-5) /hpf Ur Squamous Epith Cells (0-4) /hpf Hyaline Casts (0-2) /lpf Urine Mucus (None) /hpf Disposition Clinical Impression: Vomiting Disposition: ADMITTED IP TO THIS HOSP Is patient prescribed a controlled substance at d/c from ED?: No Referrals: Benji Jean-Baptiste MD [Primary Care Provider] - 1-2 days Time of Disposition: 19:54
[2023-09-21] MEDS: SODIUM CHLORIDE 0.9% 1,000 ML IV STA (18:03)
[2023-09-21] MEDS: HYDROCORTISONE SUCCINATE 100 MG/2 ML VIAL IV STA (18:03)
[2023-09-21] MEDS: ONDANSETRON 4 MG/2 ML VIAL IVP STA (18:03)
[2023-09-21 18:09] LABS: Basophils % (A) 0 %; Eosinophils # (A) 0.3 k/uL (0-0.7); Eosinophils % (A) 2 %; HCT 49.3 % (34.0-46.0); HGB 15.9 gm/dL (11.4-16.0); Lymphocytes # (A) 1.4 k/uL (1.0-4.8); Lymphocytes % (A) 7 %; MCH 28.2 pg (25.0-35.0); MCHC 32.4 g/dL (31.0-37.0); MCV 87.1 fL (80.0-100.0); Mean Platelet Volume 8.6; Monocytes # (A) 0.5 k/uL (0-1.0); Monocytes % (A) 3 %; Neutrophils # (A) 16.5 k/uL (1.3-7.7); Neutrophils % (A) 87 %; Platelet Count 277 k/uL (150-450); RBC 5.65 m/uL (3.80-5.40); WBC 18.9 k/uL (3.8-10.6)
[2023-09-21 18:18] LABS: ALT 16 U/L (4-34); African American GFR (CKD) 75 (>60 ml/min/1.73 sqM); Albumin 4.8 g/dL (3.5-5.0); Anion Gap 12 mmol/L; Blood Urea Nitrogen 24 mg/dL (7-17); Calcium 10.2 mg/dL (8.4-10.2); Carbon Dioxide 31 mmol/L (22-30); Chloride 90 mmol/L (98-107); Glucose 121 mg/dL (74-99); Non-African American GFR(CKD) 65 (>60 ml/min/1.73 sqM); Phosphorus 3.3 mg/dL (2.5-4.5); Sodium 133 mmol/L (137-145); Total Protein 7.5 g/dL (6.3-8.2)
[2023-09-21 18:21] LABS: INR 0.9 (<1.2); Partial Thromboplastin Time 22.6 sec (22.0-30.0); Prothrombin Time 9.7 sec (10.0-12.5)
[2023-09-21 18:27] LABS: AST 30 U/L (14-36); Alkaline Phosphatase 100 U/L (38-126); Magnesium 1.5 mg/dL (1.6-2.3)
[2023-09-21 18:34] LABS: T4, Free (Free Thyroxine) 1.29 ng/dL (0.78-2.19)
[2023-09-21 18:47] LABS: Hyaline Casts,Urine 23 /lpf (0-2); Mucus,Urine Occasional /hpf; RBC,Urine >182 /hpf (0-5); Squamous Epithelial Cell,Urine <1 /hpf (0-4); WBC,Urine 3 /hpf (0-5)
[2023-09-21 18:50] LABS: Appearance,Urine Cloudy (Clear); Color,Urine Dark Orange
--- NOTE | 2023-09-21 19:42 | XR ---
EXAMINATION TYPE: XR chest 2V DATE OF EXAM: 09/21/2023 6:21 PM CLINICAL INDICATION:Female, 68 years old with history of Weakness; PHH COMPARISON: Chest radiographs from 10/17/2021 TECHNIQUE: XR chest 2V Frontal and lateral views of the chest. FINDINGS: Lungs/Pleura: There is flattening of the diaphragm with increased lucency of the lungs. No evidence o f pneumothorax, pleural effusion or focal consolidation. Pulmonary vascularity: Unremarkable. Heart/mediastinum: Cardiomediastinal silhouette is unremarkable. Musculoskeletal: No acute osseous pathology. Stable bony deformity of the left upper lung. IMPRESSION: 1. No acute cardiopulmonary disease process. 2. COPD changes.
[2023-09-21] MEDS ORDERED: ONDANSETRON ODT 4 MG TAB PO PRN (19:47)
[2023-09-21] MEDS ORDERED: ALPRAZolam 0.25 MG TAB PO PRN (19:47)
[2023-09-21] MEDS ORDERED: ACETAMINOPHEN TAB 325 MG TAB PO PRN (19:54)
[2023-09-21] MEDS ORDERED: NALOXONE 0.4 MG/ML 1 ML VIAL IV PRN (19:54)
--- NOTE | 2023-09-21 20:31 | CT ---
EXAMINATION TYPE: CT abdomen pelvis wo con CT DLP: 386.9 mGycm, Automated exposure control for dose reduction was used. DATE OF EXAM: 09/21/2023 8:21 PM COMPARISON: CT abdomen pelvis dating back to 01/28/2022. CLINICAL INDICATION:Female, 68 years old with history of Hematuria and suprapubic pressure; Weakness and hematuria. TECHNIQUE: Axial CT abdomen pelvis wo con;Sagittal and coronal reformats were created on a separate workstation. Contrast used: mL of , (none if empty) Oral contrast used: without Oral Contrast (none if empty) FINDINGS: LOWER CHEST: 7 x 5 mm left lower lobe pulmonary nodule stable back to at least 01/28/2022 ABDOMEN LIVER: Unremarkable GALLBLADDER AND BILE DUCTS: Gallbladder is surgically absent with mild intrahepatic and extra hepatic biliary dilatation likely physiologic and a postcholecystectomy change. No evidence of choledocholit hiasis. PANCREAS: Unremarkable. SPLEEN: Unremarkable. ADRENAL GLANDS: Unremarkable. KIDNEYS AND URETERS: Nonobstructing renal calculi bilaterally measuring up to 4 mm bilaterally. Left ureteropelvic junction calculus measuring 6 mm 6 mm calculus at the ureterovesicular junction on the right. . No significant hydronephrosis these calculi in the collecting system suggesting partial obstruction . PELVIS BLADDER: Unremarkable REPRODUCTIVE: The uterus is surgically absent. ABDOMEN & PELVIS STOMACH AND BOWEL: No evidence of bowel obstruction. PERITONEUM/RETROPERITONEUM: No evidence of pneumoperitoneum or free fluid. VASCULATURE: No evidence of aortic aneurysm. MUSCULOSKELETAL: No acute osseous abnormalities LYMPH NODES: No gross evidence for lymphadenopathy. SOFT TISSUE/ABDOMINAL WALL: Unremarkable IMPRESSION: 1. New Left 6 mm ureteropelvic junction calculus. 2. New Right 6 mm ureterovesicular junction calculus. 3. Additional bilateral nonobstructing calculi
[2023-09-21] MEDS: SODIUM CHLORIDE 0.9% 1,000 ML IV SCH (21:54)
[2023-09-21] MEDS: GABAPENTIN 300 MG CAP PO SCH (22:08)
[2023-09-21] MEDS: FLUDROCORTISONE 0.1 MG TAB PO SCH (22:09)
[2023-09-22] MEDS: HYDROCORTISONE SUCCINATE 100 MG/2 ML VIAL IV SCH ×2 (00:17→15:47)
[2023-09-22] MEDS: ACETAMINOPHEN IV (For NPO) 1,000 MG in EMPTY BAG 1 BAG IVPB PRN (01:27)
[2023-09-22 08:33] LABS: Basophils # (A) 0.02 X 10*3/uL (0.00-0.10); Basophils % (A) 0.2 %; Eosinophils # (A) 0.02 X 10*3/uL (0.04-0.35); Eosinophils % (A) 0.2 %; HCT 39.6 % (37.2-46.3); HGB 13.2 g/dL (12.0-15.0); Lymphocytes % (A) 5.4 %; MCH 28.2 pg (27.0-32.0); MCHC 33.3 g/dL (32.0-37.0); MCV 84.6 FL (80.0-97.0); Mean Platelet Volume 11.6 FL (9.5-12.2); Monocytes # (A) 0.17 X 10*3/uL (0.20-1.00); Monocytes % (A) 1.3 %; NRBC Per 100 WBC 0 X 10*3/uL (0.00-0.01); Neutrophils # (A) 12.11 X 10*3/uL (1.80-7.70); Neutrophils % (A) 92.6 %; Platelet Count 238 X 10*3/uL (140-440); RBC 4.68 X 10*6/uL (4.10-5.20); RDW 13.2 % (11.5-14.5); WBC 13.06 X 10*3/uL (4.50-10.00)
[2023-09-22] MEDS: EZETIMIBE 10 MG TAB PO SCH (08:57)
[2023-09-22 08:59] LABS: ALT 12 U/L (8-44); AST 19 U/L (13-35); Albumin 4.2 g/dL (3.8-4.9); Albumin/Globulin Ratio 2.21 Ratio (1.60-3.17); Alkaline Phosphatase 91 U/L (41-126); Blood Urea Nitrogen 20.3 mg/dL (9.0-27.0); Calcium 9.3 mg/dL (8.7-10.3); Carbon Dioxide 28.9 mmol/L (21.6-31.8); Chloride 92 mmol/L (96-109); Globulin 1.9 g/dL (1.6-3.3); Glucose 146 mg/dL (70-110); Potassium 3.4 mmol/L (3.5-5.5); Sodium 134 mmol/L (135-145); Total Bilirubin 0.5 mg/dL (0.3-1.2); Total Protein 6.1 g/dL (6.2-8.2)
[2023-09-22] MEDS: MACITENTAN 10 MG PO SCH (09:00)
[2023-09-22] MEDS: PANTOPRAZOLE 40 MG TABLET PO SCH (09:05)
[2023-09-22] MEDS: FLUoxetine HCL 20 MG CAP PO SCH (09:08)
[2023-09-22] MEDS ORDERED: ACETAMINOPHEN TAB 500 MG TAB PO PRN (11:10)
--- NOTE | 2023-09-22 12:54 | HP ---
HISTORY AND PHYSICAL CHIEF COMPLAINT: Weakness, dysuria, hematuria and vomiting. HISTORY OF PRESENT ILLNESS: A 68 years old with past medical history of multiple medical problems including workup for adrenal insufficiency, being followed weakness. The patient also had some abdominal symptoms including dysuria, hematuria and some vomiting. The patient has been on steroids for the past 1 month. The evaluation in the hospital, the CAT scan, showed new left 6 mm ureteropelvic junction calculus and right ureterovesical junction calculus also. There is no history of any headache, loss of conscious or seizures. White count is 13.6, and lactic acid is also elevated. UA was mostly rbcs. PAST MEDICAL HISTORY: History of workup for adrenal insufficiency, multiple abdominal surgeries, primary pulmonary hypertension. Rest of the history and chart is also reviewed. HOME MEDICATIONS: Reviewed include Zofran. Doses and rest of medications reviewed. ALLERGIES: Reviewed include Vicodin. Rest of allergies noted. FAMILY HISTORY: History of myocardial infarction and CVA. SOCIAL HISTORY: Previous history of smoking. REVIEW OF SYSTEMS: A 14-point review is negative except as mentioned earlier. PHYSICAL EXAMINATION: VITAL SIGNS: Pulse 64, blood pressure 94/62, respirations 16. HEENT: Conjunctivae normal. NECK: No jugular venous distention. CARDIOVASCULAR: S1 and S2. RESPIRATIONS: Diminished at the bases. Few scattered rhonchi. No crackles. ABDOMEN: Soft, mild discomfort in the lower part of the abdomen. No guarding, no rigidity. LEGS: No edema, no cyanosis. NERVOUS SYSTEM: No focal deficits, no neck stiffness. LABORATORY DATA: Reviewed. WBC 13.6. Sodium 130, potassium 3.4. ASSESSMENT: 1. Generalized weakness, rule out adrenal crisis. 2. Hypoadrenalism. 3. Rule out sepsis with urinary tract infection. 4. Ureteropelvic junction calculus and the ureterovesical junction calculus probably new with hematuria and dysuria. 5. Hypokalemia. 6. Hyponatremia. 7. Elevated WBC. 8. Elevated lactic acid. 9. History of primary pulmonary hypertension. 10.History of migraine. 11.History of renal tubular acidosis. 12.History of migraine headaches. 13.History of polymyalgia rheumatica. 14.Multiple complex medical issues. 15.Anxiety, depression, posttraumatic stress disorder. RECOMMENDATIONS AND DISCUSSION: This is a 68-year-old woman, who presented with multiple complex medical issues. We will monitor the patient closely. Continue the current medications. We will administer stress-dose steroids empiric antibiotics, otherwise I would also recommend resume the home medications. Urology consultation. Infectious Disease evaluation. Obtain cultures. Guarded prognosis because of multiple complex medical issues. Further recommendations to follow. See orders for details. MMODL / IJN: [id number] / MTDD
[2023-09-22 15:50] LABS: Appearance,Urine Clear (Clear); Bilirubin,Urine Negative (Negative); Blood,Urine Moderate (Negative); Color,Urine Light Yellow; Glucose,Urine (UA) Negative (Negative); Ketones,Urine Negative (Negative); Leukocyte Esterase,Urine Negative (Negative); Nitrite,Urine Negative (Negative); Protein,Urine Negative (Negative); RBC,Urine 46 /hpf (0-5); Specific Gravity,Urine 1.006 (1.001-1.035); Urobilinogen,Urine <2.0 mg/dL (<2.0); WBC,Urine <1 /hpf (0-5)
[2023-09-22] MEDS ORDERED: SILDENAFIL 20 MG TAB PO SCH (16:00)
[2023-09-22] MEDS ORDERED: Potassium Replacement Protocol 1 EACH MISC MISCELLANE PRN (18:46)
[2023-09-22] MEDS: HEPARIN SODIUM,PORCINE 5,000 UNIT/ML 1 ML VIAL SQ SCH (20:27)
[2023-09-22] MEDS: POTASSIUM CHLORIDE ER 20 MEQ TAB.ER PO SCH (20:27)
[2023-09-22] MEDS: POTASSIUM CITRATE 10 MEQ TABLET.ER PO SCH (20:27)
[2023-09-22] MEDS: traMADol 50 MG TAB PO PRN (20:41)
[2023-09-22] MEDS: ONDANSETRON 4 MG/2 ML VIAL IVP PRN (20:41)
--- NOTE | 2023-09-23 08:47 | P.CONS ---
History of Present Illness - Reason for Consult Consult date: 09/22/23 Sepsis Requesting physician: Rashaad Sykes - Chief Complaint Weakness and dysuria x few days - History of Present Illness Patient is a 68-year-old female with a past medical history significant for pulmonary hypertension renal stone depression anxiety mention has been dealing with the adrenal crisis over the last few weeks the patient steroids has been adjusted up by her primary care physician, presented to the hospital complaining of weakness low blood pressure dysuria and also having some suprapubic discomfort moderate in intensity with an episode of vomiting denies high-grade fever or any chills with the symptoms the patient has been evaluated on presentation to the hospital the patient was afebrile and no fever have been recorded subsequently patient was not tachycardic mildly hypotensive but no need for pressor support and not hypoxic patient did have a white count of 18.9 creatinine was normal lactic acid was elevated liver enzymes are normal urine was mostly hematuria with some WBC CT abdominal pelvis did shows new left 6 mm ureteropelvic junction calculus and right 6 mm ureterovesicular junction calculus patient has been started on Rocephin infectious disease was consulted for possible sepsis and UTI and antibiotic therapy as the patient did have a multiple antibiotic allergies Review of Systems Positive point and negatives has been mentioned in the HPI, complete review of systems was performed and all other systems are negative Past Medical History Past Medical History: Renal Disease Additional Past Medical History / Comment(s): Primary Pulmonary HTN, BP USUALLY RUNS LOW, 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 MIGRAINE HEADACHE, UTERINE CANCER, POLY MYALGIA RHEUMATICA, History of Any Multi-Drug Resistant Organisms: None Reported Past Surgical History: Section, Cholecystectomy, Hysterectomy, Orthopedic Surgery, Tonsillectomy Additional Past Surgical History / Comment(s): X 4, RT KNEE SURGERY, D & C , colonosopy and bilateral tubes in ears.LITHROTRIPSY Past Anesthesia/Blood Transfusion Reactions: Postoperative Nausea & Vomiting (PONV) Past Psychological History: Anxiety, Depression Smoking Status: Former smoker Past Alcohol Use History: None Reported Additional Past Alcohol Use History / Comment(s): STARTED SMOKING AT AGE 19 QUIT AT AGE 29 SMOKED 1PPD Past Drug Use History: None Reported - Past Family History Mother Family Medical History: AFIB, CVA/TIA, Neurologic Disorder Additional Family Medical History / Comment(s): HX PARKINSON'S Father Family Medical History: Cancer, CVA/TIA, Myocardial Infarction ([place]) Additional Family Medical History / Comment(s): HEART DISEASE , PANCREAS-CANCER Medications and Allergies Home Medications Medication Instructions Recorded Confirmed Type Macitentan [Opsumit] 10 mg PO DAILY 09/22/13 09/21/23 History Sildenafil [Revatio] 20 mg PO TID 06/12/18 09/21/23 History Omeprazole [PriLOSEC] 40 mg PO DAILY 04/25/20 09/21/23 History ALPRAZolam [Xanax] 0.25 mg PO BID PRN 10/17/21 09/21/23 History Ezetimibe [Zetia] 10 mg PO DAILY 10/17/21 09/21/23 History FLUoxetine HCL [PROzac] 40 mg PO DAILY 10/17/21 09/21/23 History Gabapentin 600 mg PO TID 10/17/21 09/21/23 History Multivit with Calcium,Iron,Min 1 tab PO DAILY 10/30/22 09/21/23 History [Women's Multivitamin] Acetaminophen [Tylenol Extra 1,000 mg PO BID PRN 09/21/23 09/21/23 History Strength] Cholecalciferol (Vitamin D3) 1,250 mcg PO WE 09/21/23 09/21/23 History [Vitamin D3 (1250 Mcg = 50,000 Iu)] Denosumab [Prolia] 60 mg SQ Q182D 09/21/23 09/21/23 History Ondansetron Odt [Zofran ODT] 4 mg PO Q8HR PRN 09/21/23 09/21/23 History Potassium Citrate [Potassium 20 meq PO BID 09/21/23 09/21/23 History Citrate ER] Acetaminophen-Codeine 300-30mg 1 tab PO Q4H PRN 3 Days #15 tablet 09/24/23 Rx [Tylenol w/codeine #3] Fludrocortisone [Florinef] 0.1 mg PO TID #30 tab 09/24/23 Rx Hydrocortisone [Cortef] 20 mg PO BID #60 tab 09/24/23 Rx Ondansetron Odt [Zofran Odt] 4 mg SL Q6HR PRN #10 tab 09/24/23 Rx Tamsulosin [Flomax] 0.4 mg PO DAILY #30 cap 09/24/23 Rx cefUROXime axetiL [Ceftin] 500 mg PO BID 3 Days #6 tab 09/24/23 Rx Allergies Allergy/AdvReac Type Severity Reaction Status Date / Time hydrocodone bitartrate Allergy Mild Nausea & Verified 09/21/23 19:15 [From Vicodin] Vomiting adhesive tape Allergy Rash/Hives Verified 09/21/23 19:15 levofloxacin [From Levaquin] Allergy Anaphylaxis Verified 09/21/23 19:15 Penicillins Allergy Rash/Hives Verified 09/21/23 19:15 Quinolones Allergy AFFECTS Verified 09/21/23 19:15 HEART RHYTHM Sulfa (Sulfonamide Allergy Rash/Hives Verified 09/21/23 19:15 Antibiotics) morphine AdvReac Severe stomach Verified 09/21/23 19:15 pain Physical Exam Vitals: Vital Signs Temp Pulse Pulse Pulse Resp BP BP 09/22/23 08:57 16 09/22/23 07:05 98.0 F 64 16 94/62 09/22/23 02:00 98.0 F 65 18 94/54 09/21/23 23:18 98.4 F 70 17 93/51 09/21/23 22:11 72 18 105/75 09/21/23 20:49 73 18 107/67 09/21/23 17:36 98.2 F 55 L 20 83/59 Pulse Ox 09/22/23 08:57 09/22/23 07:05 95 09/22/23 02:00 94 L 09/21/23 23:18 09/21/23 22:11 95 09/21/23 20:49 95 09/21/23 17:36 98 Intake and Output 09/21/23 09/22/23 09/22/23 22:59 06:59 14:59 Other: Voiding Method Bedside Commode Bedside Commode # Voids 1 Weight 61.235 kg GENERAL DESCRIPTION: Elderly female lying in bed, no distress. No tachypnea or accessory muscle of respiration use. HEENT: Shows Pallor , no scleral icterus. Oral mucous membrane is dry. No pharyngeal erythema or thrush NECK: Trachea central, no thyromegaly. LUNGS: Unlabored breathing. Clear to auscultation anteriorly. No wheeze or crackle. HEART: S1, S2, regular rate and rhythm. No loud murmur ABDOMEN: Soft, no tenderness , guarding or rigidity, no organomegaly EXTREMITIES: No edema of feet. SKIN: No rash, no masses palpable. NEUROLOGICAL: The patient is awake, alert, oriented x3, mood and affect normal. Results CBC & Chem 7: 09/23/23 06:28 09/23/23 06:28 Labs: Abnormal Lab Results - Last 24 Hours (Table) 09/21/23 09/21/23 09/21/23 Range/Units 17:58 17:58 17:58 WBC 18.9 H (3.8-10.6) k/uL RBC 5.65 H (3.80-5.40) m/uL Hct 49.3 H (34.0-46.0) % Neutrophils # 16.5 H (1.3-7.7) k/uL Lymphocytes # (0.90-5.00) X 10*3/uL Monocytes # (0.20-1.00) X 10*3/uL Eosinophils # (0.04-0.35) X 10*3/uL PT 9.7 L (10.0-12.5) sec Sodium (137-145) mmol/L Potassium (3.5-5.5) mmol/L Chloride (98-107) mmol/L Carbon Dioxide (22-30) mmol/L Anion Gap (4.00-12.00) mmol/L BUN (7-17) mg/dL BUN/Creatinine Ratio (12.00-20.00) Ratio Glucose (74-99) mg/dL Plasma Lactic Acid Iglesia (0.7-2.0) mmol/L Magnesium (1.6-2.3) mg/dL Total Protein (6.2-8.2) g/dL Urine Appearance Cloudy H (Clear) Urine RBC >182 H (0-5) /hpf Hyaline Casts 23 H (0-2) /lpf Urine Mucus Occasional H (None) /hpf 09/21/23 09/21/23 09/21/23 Range/Units 17:58 17:58 20:37 WBC (3.8-10.6) k/uL RBC (3.80-5.40) m/uL Hct (34.0-46.0) % Neutrophils # (1.3-7.7) k/uL Lymphocytes # (0.90-5.00) X 10*3/uL Monocytes # (0.20-1.00) X 10*3/uL Eosinophils # (0.04-0.35) X 10*3/uL PT (10.0-12.5) sec Sodium 133 L (137-145) mmol/L Potassium (3.5-5.5) mmol/L Chloride 90 L (98-107) mmol/L Carbon Dioxide 31 H (22-30) mmol/L Anion Gap (4.00-12.00) mmol/L BUN 24 H (7-17) mg/dL BUN/Creatinine Ratio (12.00-20.00) Ratio Glucose 121 H (74-99) mg/dL Plasma Lactic Acid Iglesia 2.2 H* 2.1 H* (0.7-2.0) mmol/L Magnesium 1.5 L (1.6-2.3) mg/dL Total Protein (6.2-8.2) g/dL Urine Appearance (Clear) Urine RBC (0-5) /hpf Hyaline Casts (0-2) /lpf Urine Mucus (None) /hpf 09/22/23 09/22/23 09/22/23 Range/Units 00:09 03:50 03:50 WBC 13.06 H (3.8-10.6) k/uL RBC (3.80-5.40) m/uL Hct (34.0-46.0) % Neutrophils # 12.11 H (1.3-7.7) k/uL Lymphocytes # 0.70 L (0.90-5.00) X 10*3/uL Monocytes # 0.17 L (0.20-1.00) X 10*3/uL Eosinophils # 0.02 L (0.04-0.35) X 10*3/uL PT (10.0-12.5) sec Sodium 134 L (137-145) mmol/L Potassium 3.4 L (3.5-5.5) mmol/L Chloride 92 L (98-107) mmol/L Carbon Dioxide (22-30) mmol/L Anion Gap 13.10 H (4.00-12.00) mmol/L BUN (7-17) mg/dL BUN/Creatinine Ratio 20.30 H (12.00-20.00) Ratio Glucose 146 H (74-99) mg/dL Plasma Lactic Acid Iglesia 2.6 H* (0.7-2.0) mmol/L Magnesium (1.6-2.3) mg/dL Total Protein 6.1 L (6.2-8.2) g/dL Urine Appearance (Clear) Urine RBC (0-5) /hpf Hyaline Casts (0-2) /lpf Urine Mucus (None) /hpf Assessment and Plan (1) Leukocytosis Status: Acute Code(s): D72.829 - ELEVATED WHITE BLOOD CELL COUNT, UNSPECIFIED SNOMED Code(s): 686808602 (2) UTI (urinary tract infection) Status: Acute Code(s): N39.0 - URINARY TRACT INFECTION, SITE NOT SPECIFIED SNOMED Code(s): 46363821 (3) Allergy to multiple antibiotics Status: Acute Code(s): Z88.1 - ALLERGY STATUS TO OTHER ANTIBIOTIC AGENTS SNOMED Code(s): 274801344 (4) Sepsis Status: Acute Priority: High Code(s): A41.9 - SEPSIS, UNSPECIFIED ORGANISM SNOMED Code(s): 95453926 Plan: 1patient presented to hospital with sepsis in this patient who did have a leukocytosis mild hypotension elevated lactic acid urinary symptoms source is likely complicated UTI as the patient did have evidence of ureteropelvic as well as ureterovesicular stone but no mention of any significant hydronephrosis 2patient with multiple antibiotic ALLERGIES that would limit the number of antibiotic safe to use 3Rocephin 2 g daily empirically while waiting for the culture to finalize Multiple question concern answered We will follow on clinical condition and cultures to further adjust medication if needed Thank you for this consultation we will follow the patient along with you Dictation was produced using [employer] dictation software. please excuse any grammatical, word or spelling errors. Time with Patient: Greater than 30
[2023-09-23] MEDS: MULTIVITAMINS, THERA 1 EACH TAB PO SCH (09:42)
[2023-09-23] MEDS: ERGOCALCIFEROL 1,250 MCG (50,000 IU) CAPSULE PO SCH (09:43)
[2023-09-23 10:30] LABS: Basophils # (A) 0.01 X 10*3/uL (0.00-0.10); Basophils % (A) 0.1 %; Eosinophils # (A) 0.01 X 10*3/uL (0.04-0.35); Eosinophils % (A) 0.1 %; HCT 36.2 % (37.2-46.3); HGB 11.5 g/dL (12.0-15.0); Lymphocytes # (A) 1.16 X 10*3/uL (0.90-5.00); Lymphocytes % (A) 14.5 %; MCH 28.4 pg (27.0-32.0); MCHC 31.8 g/dL (32.0-37.0); MCV 89.4 FL (80.0-97.0); Mean Platelet Volume 11.8 FL (9.5-12.2); Monocytes # (A) 0.18 X 10*3/uL (0.20-1.00); Monocytes % (A) 2.3 %; NRBC Per 100 WBC 0 X 10*3/uL (0.00-0.01); Neutrophils # (A) 6.62 X 10*3/uL (1.80-7.70); Neutrophils % (A) 82.7 %; Platelet Count 236 X 10*3/uL (140-440); RBC 4.05 X 10*6/uL (4.10-5.20); RDW 13.2 % (11.5-14.5)
[2023-09-23 10:42] LABS: ALT 11 U/L (8-44); AST 16 U/L (13-35); Alkaline Phosphatase 80 U/L (41-126); BUN/Creat Ratio 17.88 Ratio (12.00-20.00); Blood Urea Nitrogen 14.3 mg/dL (9.0-27.0); Calcium 9.3 mg/dL (8.7-10.3); Carbon Dioxide 30.5 mmol/L (21.6-31.8); Chloride 101 mmol/L (96-109); Globulin 1.6 g/dL (1.6-3.3); Glucose 123 mg/dL (70-110); Potassium 3.6 mmol/L (3.5-5.5); Sodium 142 mmol/L (135-145); Total Bilirubin <0.2 mg/dL (0.3-1.2); Total Protein 5.6 g/dL (6.2-8.2)
--- NOTE | 2023-09-23 21:59 | P.GSCN ---
History of Present Illness Consult date: 09/23/23 Reason for Consult: Hematuria, urolithiasis Requesting physician: Tommie Jacobsen History of present illness: The patient is a 68-year-old white female admitted with a 1 day history of weakness. She also reports dysuria and hematuria. CT scan shows a 6 mm left proximal ureteral calculus, a 5.5 mm calculus at the right UVJ, and bilateral renal calculi measuring up to 4 mm in size. She experienced hematuria 2 weeks ago of 24-hour duration. 3 days ago, she began to experience lower abdominal pressure. She was started on Macrobid on September 21, 2023. The patient has a history of recurrent urolithiasis. She underwent ESWL on 2 occasions in 2017. Her calculi were composed of calcium phosphate carbonate. Metabolic evaluation showed evidence of hypocitraturia, and she takes potassium citrate supplementation for this reason. She has been diagnosed with renal tubular acidosis. She was recently found to have adrenal insufficiency and is being treated with steroids. She attributes her recent weakness to this. 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 MIGRAINE HEADACHE, UTERINE CANCER, POLY MYALGIA RHEUMATICA, History of Any Multi-Drug Resistant Organisms: None Reported Past Surgical History: Section, Cholecystectomy, Hysterectomy, Orthopedic Surgery, Tonsillectomy Additional Past Surgical History / Comment(s): X 4, RT KNEE SURGERY, D & C , colonosopy and bilateral tubes in ears.LITHROTRIPSY Past Anesthesia/Blood Transfusion Reactions: Postoperative Nausea & Vomiting (PONV) Past Psychological History: Anxiety, Depression Smoking Status: Former smoker Past Alcohol Use History: None Reported Additional Past Alcohol Use History / Comment(s): STARTED SMOKING AT AGE 19 QUIT AT AGE 29 SMOKED 1PPD Past Drug Use History: None Reported - Past Family History Mother Family Medical History: AFIB, CVA/TIA, Neurologic Disorder Additional Family Medical History / Comment(s): HX PARKINSON'S Father Family Medical History: Cancer, CVA/TIA, Myocardial Infarction ([place]) Additional Family Medical History / Comment(s): HEART DISEASE , PANCREAS-CANCER Medications and Allergies Home Medications Medication Instructions Recorded Confirmed Type Macitentan [Opsumit] 10 mg PO DAILY 09/22/13 09/21/23 History Sildenafil [Revatio] 20 mg PO TID 06/12/18 09/21/23 History Omeprazole [PriLOSEC] 40 mg PO DAILY 04/25/20 09/21/23 History ALPRAZolam [Xanax] 0.25 mg PO BID PRN 10/17/21 09/21/23 History Ezetimibe [Zetia] 10 mg PO DAILY 10/17/21 09/21/23 History FLUoxetine HCL [PROzac] 40 mg PO DAILY 10/17/21 09/21/23 History Gabapentin 600 mg PO TID 10/17/21 09/21/23 History Multivit with Calcium,Iron,Min 1 tab PO DAILY 10/30/22 09/21/23 History [Women's Multivitamin] Acetaminophen [Tylenol Extra 1,000 mg PO BID PRN 09/21/23 09/21/23 History Strength] Chlorthalidone [Hygroton] 25 mg PO DAILY 09/21/23 09/21/23 History Cholecalciferol (Vitamin D3) 1,250 mcg PO WE 09/21/23 09/21/23 History [Vitamin D3 (1250 Mcg = 50,000 Iu)] Denosumab [Prolia] 60 mg SQ Q182D 09/21/23 09/21/23 History Fludrocortisone [Florinef] 0.05 mg PO BID 09/21/23 09/21/23 History Hydrocortisone [Cortef] 10 mg PO BID 09/21/23 09/21/23 History Nitrofurantoin Monohyd/M-Cryst 100 mg PO Q12HR 09/21/23 09/21/23 History [Macrobid] Ondansetron Odt [Zofran Odt] 4 mg PO Q8HR PRN 09/21/23 09/21/23 History Potassium Citrate [Potassium 20 meq PO BID 09/21/23 09/21/23 History Citrate ER] Allergies Allergy/AdvReac Type Severity Reaction Status Date / Time hydrocodone bitartrate Allergy Mild Nausea & Verified 09/21/23 19:15 [From Vicodin] Vomiting adhesive tape Allergy Rash/Hives Verified 09/21/23 19:15 levofloxacin [From Levaquin] Allergy Anaphylaxis Verified 09/21/23 19:15 Penicillins Allergy Rash/Hives Verified 09/21/23 19:15 Quinolones Allergy AFFECTS Verified 09/21/23 19:15 HEART RHYTHM Sulfa (Sulfonamide Allergy Rash/Hives Verified 09/21/23 19:15 Antibiotics) morphine AdvReac Severe stomach Verified 09/21/23 19:15 pain Surgical - Exam Vital Signs Temp Pulse Resp BP Pulse Ox 98.2 F 55 L 20 83/59 98 09/21/23 17:36 09/21/23 17:36 09/21/23 17:36 09/21/23 17:36 09/21/23 17:36 - General well developed, well nourished, no distress - Neck no masses, trachea midline - Respiratory normal respiratory effort - Abdomen Abdomen: soft, non tender, no guarding, no rigid, no rebound - Psychiatric oriented to time, oriented to person, oriented to place, speech is normal, memory intact Results - Labs 09/23/23 06:28 09/23/23 06:28 Abnormal Lab Results - Last 24 Hours (Table) 09/22/23 09/22/23 09/22/23 Range/Units 03:50 03:50 11:57 WBC 13.06 H (4.50-10.00) X 10*3/uL Neutrophils # 12.11 H (1.80-7.70) X 10*3/uL Lymphocytes # 0.70 L (0.90-5.00) X 10*3/uL Monocytes # 0.17 L (0.20-1.00) X 10*3/uL Eosinophils # 0.02 L (0.04-0.35) X 10*3/uL Sodium 134 L (135-145) mmol/L Potassium 3.4 L (3.5-5.5) mmol/L Chloride 92 L (96-109) mmol/L Anion Gap 13.10 H (4.00-12.00) mmol/L BUN/Creatinine Ratio 20.30 H (12.00-20.00) Ratio Glucose 146 H (70-110) mg/dL Total Protein 6.1 L (6.2-8.2) g/dL Urine Blood Moderate H (Negative) Urine RBC 46 H (0-5) /hpf Diabetes panel 09/22/23 Range/Units 03:50 Sodium 134 L (135-145) mmol/L Potassium 3.4 L (3.5-5.5) mmol/L Chloride 92 L (96-109) mmol/L Carbon Dioxide 28.9 (21.6-31.8) mmol/L BUN 20.3 (9.0-27.0) mg/dL Creatinine 1.0 (0.6-1.5) mg/dL Glucose 146 H (70-110) mg/dL Calcium 9.3 (8.7-10.3) mg/dL AST 19 (13-35) U/L ALT 12 (8-44) U/L Alkaline Phosphatase 91 (41-126) U/L Total Protein 6.1 L (6.2-8.2) g/dL Albumin 4.2 (3.8-4.9) g/dL Calcium panel 09/22/23 Range/Units 03:50 Calcium 9.3 (8.7-10.3) mg/dL Albumin 4.2 (3.8-4.9) g/dL Pituitary panel 09/22/23 Range/Units 03:50 Sodium 134 L (135-145) mmol/L Potassium 3.4 L (3.5-5.5) mmol/L Chloride 92 L (96-109) mmol/L Carbon Dioxide 28.9 (21.6-31.8) mmol/L BUN 20.3 (9.0-27.0) mg/dL Creatinine 1.0 (0.6-1.5) mg/dL Glucose 146 H (70-110) mg/dL Calcium 9.3 (8.7-10.3) mg/dL Adrenal panel 09/22/23 Range/Units 03:50 Sodium 134 L (135-145) mmol/L Potassium 3.4 L (3.5-5.5) mmol/L Chloride 92 L (96-109) mmol/L Carbon Dioxide 28.9 (21.6-31.8) mmol/L BUN 20.3 (9.0-27.0) mg/dL Creatinine 1.0 (0.6-1.5) mg/dL Glucose 146 H (70-110) mg/dL Calcium 9.3 (8.7-10.3) mg/dL Total Bilirubin 0.5 (0.3-1.2) mg/dL AST 19 (13-35) U/L ALT 12 (8-44) U/L Alkaline Phosphatase 91 (41-126) U/L Total Protein 6.1 L (6.2-8.2) g/dL Albumin 4.2 (3.8-4.9) g/dL - Imaging CT scan - abdomen: report reviewed, image reviewed Assessment and Plan (1) Calculus of ureter Current Visit: Yes Status: Acute Code(s): N20.1 - CALCULUS OF URETER SNOMED Code(s): 29967364 (2) Calculus of kidney Current Visit: Yes Status: Acute Code(s): N20.0 - CALCULUS OF KIDNEY SNOMED Code(s): 78480199 Plan: The patient's pelvic pressure is likely due to the right UVJ calculus. I explained to her that this calculus has an approximately 90% chance of passing. I have prescribed tamsulosin to increase the likelihood of passage, and her urine will be strained. The left proximal ureteral calculus has a lower likelihood of passing, and in view of this she has elected to undergo left ESWL as an outpatient on September 28, 2023. Ureteroscopic removal of the ureteral and renal calculi was also discussed as an option. Time with Patient: Greater than 30
--- NOTE | 2023-09-23 22:44 | PN ---
PROGRESS NOTE DATE OF SERVICE: 09/23/2023 SUBJECTIVE: This is a 68-year-old woman who was admitted with significant weakness and possible adrenal crisis, is being closely monitored. The patient is on high-dose IV steroids. The patient has had endocrine evaluation on Thursday. The patient is also on empiric antibiotics, however, the cultures are negative at this time. White count is also improved to 8. Multiple consultants are following the patient closely. Lactic acid also improved. The patient had urolithiasis evaluated by Urology also. PAST MEDICAL HISTORY: Reviewed. REVIEW OF SYSTEMS: A 14-point review of systems negative as mentioned earlier. CURRENT MEDICATIONS: Reviewed include Rocephin, dose and rest of medications noted. PHYSICAL EXAMINATION: VITAL SIGNS: Pulse is 55, blood pressure 111/70. No orthostatic changes, respirations 20. CHEST: Clear to auscultation. CARDIOVASCULAR: S1, S2. ABDOMEN: Soft. NERVOUS SYSTEM: Nonfocal. LABORATORY DATA: Reviewed. ASSESSMENT: 1. Generalized weakness, possibly adrenal crisis early. 2. Hypoadrenalism. 3. UTI, rule out sepsis. 4. Ureteropelvic junction calculus and ureterovesical junction calculus, probably new with hematuria and dysuria. 5. Hypokalemia. 6. Hyponatremia. 7. Elevated WBC. 8. Elevated lactic acid. 9. History of primary pulmonary hypertension. 10.History of migraine. 11.History of renal tubular acidosis. 12.History of polymyalgia rheumatica. 13.Multiple complex medical issues. 14.Depression, posttraumatic stress disorder. RECOMMENDATIONS: Recommended to continue current management, continue symptomatic treatment. Continue with high-dose IV steroids. We will taper the steroids p.o. and recommended close followup with Endocrine as an outpatient. Continue the antibiotics. Cultures are negative so far. Possible discharge in the next 24 hours with further plans to follow closely with Endocrine as well as Primary Physician, Dr. Hill. Discussed with the patient who understands. MMODL / IJN: [id number] /
[2023-09-24 08:06] VITALS: TEMP 98.1
[2023-09-24] MEDS: TAMSULOSIN 0.4 MG CAP.ER.24H PO SCH (09:11)
[2023-09-24 09:43] VITALS: RESP 16
--- NOTE | 2023-09-24 10:29 | P.PN ---
Subjective Progress Note Date: 09/24/23 Principal diagnosis: Bilateral ureteral calculi The patient passed a calculus measuring approximately 3 mm in size. The calculus at the right UVJ appeared larger than this. She states that her pelvic pressure is much improved. She reports mild left flank discomfort overnight. Objective - Vital Signs Vital signs: Vital Signs Temp 98.1 F 09/24/23 07:00 Pulse 62 09/24/23 07:00 Resp 16 09/24/23 08:00 BP 100/60 09/24/23 07:00 Pulse Ox 95 09/24/23 07:00 FiO2 Intake & Output 09/23/23 09/24/23 09/24/23 18:59 06:59 18:59 Intake Total 118 Balance 118 Intake: Oral 118 Other: Voiding Method Bedside Commode Bedside Commode Bedside Commode # Voids 2 4 - Constitutional General appearance: Present: average body habitus, cooperative, no acute distress - Psychiatric Psychiatric: Present: A&O x's 3 - Labs CBC & Chem 7: 09/23/23 06:28 09/23/23 06:28 Labs: Abnormal Lab Results - Last 24 Hours (Table) 09/23/23 09/23/23 Range/Units 06:28 06:28 RBC 4.05 L (4.10-5.20) X 10*6/uL Hgb 11.5 L (12.0-15.0) g/dL Hct 36.2 L (37.2-46.3) % MCHC 31.8 L (32.0-37.0) g/dL Monocytes # 0.18 L (0.20-1.00) X 10*3/uL Eosinophils # 0.01 L (0.04-0.35) X 10*3/uL Glucose 123 H (70-110) mg/dL Total Bilirubin <0.2 L (0.3-1.2) mg/dL Total Protein 5.6 L (6.2-8.2) g/dL Microbiology - Last 24 Hours (Table) 09/22/23 11:57 Urine Culture - Final Urine,Clean Catch 09/22/23 11:36 Blood Culture - Preliminary Blood Assessment and Plan (1) Calculus of ureter Current Visit: Yes Status: Acute Code(s): N20.1 - CALCULUS OF URETER SNOMED Code(s): 59115753 (2) Calculus of kidney Current Visit: Yes Status: Acute Code(s): N20.0 - CALCULUS OF KIDNEY SNOMED Code(s): 54736171 Plan: The patient's pelvic pressure is likely due to the right UVJ calculus, which she may have passed. It is anticipated that she will be discharged home today. Arrangements have been made for her to undergo left ESWL as an outpatient on September 28, 2023. I have sent prescriptions for tamsulosin, Zofran, and Tylenol 3. She has been advised to avoid any and all medications with blood thinning characteristics, such as NSAIDs. Please notify me if I can be of any further assistance.
[2023-09-24 12:18] VITALS: BP 112/65; PULSE 61
--- NOTE | 2023-09-24 14:58 | P.PN ---
Subjective Progress Note Date: 09/23/23 Principal diagnosis: Reason for follow-up is leukocytosis/UTI Patient is a 68-year-old female with a past medical history significant for pulmonary hypertension renal stone depression anxiety mention has been dealing with the adrenal crisis present to the hospital for weakness low blood pressure dysuria concerning for UTI did have elevated white count. On today's evaluation that is 09/23/2023,the patient denies any fever or any chills, patient is breathing comfortably on room air, the patient denies chest pain shortness of breath and no significant cough, patient denies abdominal pain, no nausea vomiting or diarrhea. Did have improvement in her urinary symptoms Patient white count normalized to 8.0, creatinine 0.8 cultures so far negative Objective - Vital Signs Vital signs: Vital Signs Temp 97.8 F 09/23/23 12:08 Pulse 65 09/23/23 12:08 Resp 16 09/23/23 12:08 BP 94/51 09/23/23 12:08 Pulse Ox 98 09/23/23 12:08 FiO2 - Exam GENERAL DESCRIPTION: An elderly female lying in bed in no distress RESPIRATORY SYSTEM: Unlabored breathing , decreased breath sounds at bases HEART: S1 S2 regular rate and rhythm , ABDOMEN: Soft , no tenderness EXTREMITIES: No edema feet - Labs CBC & Chem 7: 09/23/23 06:28 09/23/23 06:28 Labs: Microbiology - Last 24 Hours (Table) 09/22/23 11:57 Urine Culture - Final Urine,Clean Catch 09/22/23 11:36 Blood Culture - Preliminary Blood Assessment and Plan (1) Allergy to multiple antibiotics Status: Acute Code(s): Z88.1 - ALLERGY STATUS TO OTHER ANTIBIOTIC AGENTS SNOMED Code(s): 281163698 (2) Leukocytosis Status: Acute Code(s): D72.829 - ELEVATED WHITE BLOOD CELL COUNT, UNSPECIFIED SNOMED Code(s): 914775359 (3) UTI (urinary tract infection) Status: Acute Code(s): N39.0 - URINARY TRACT INFECTION, SITE NOT SPECIFIED SNOMED Code(s): 26277067 Plan: 1patient presented to hospital with sepsis in this patient who did have a leukocytosis mild hypotension elevated lactic acid urinary symptoms source is likely complicated UTI as the patient did have evidence of ureteropelvic as well as ureterovesicular stone but no mention of any significant hydronephrosis 2patient with multiple antibiotic ALLERGIES that would limit the number of antibiotic safe to use 3patient did have normalization of the white count and will continue with Rocephin 2 g daily while waiting for the culture to finalize Dictation was produced using [employer] dictation software. please excuse any gramm atical, word or spelling errors. Time with Patient: Less than 30
--- NOTE | 2023-09-24 14:59 | P.PN ---
Subjective Progress Note Date: 09/24/23 Principal diagnosis: Reason for follow-up is leukocytosis/UTI Patient is a 68-year-old female with a past medical history significant for pulmonary hypertension renal stone depression anxiety mention has been dealing with the adrenal crisis present to the hospital for weakness low blood pressure dysuria concerning for UTI did have elevated white count. On today's evaluation that is 09/24/2023,the patient remains to be afebrile, patient is on room air not requiring supplemental oxygen and denies any shortness of breath no chest pain or cough.Patient denies having any nausea or vomiting, no abdominal pain and no diarrhea patient mention she did pass a small stone and urinary symptoms has improved. No labs has been obtained today culture has been negative Objective - Vital Signs Vital signs: Vital Signs Temp 98.1 F 09/24/23 07:00 Pulse 61 09/24/23 11:30 Resp 16 09/24/23 08:00 BP 112/65 09/24/23 11:30 Pulse Ox 97 09/24/23 11:30 FiO2 Intake & Output 09/23/23 09/24/23 09/24/23 18:59 06:59 18:59 Intake Total 118 Balance 118 Intake: Oral 118 Other: Voiding Method Bedside Commode Bedside Commode Bedside Commode # Voids 2 4 2 - Exam GENERAL DESCRIPTION: An elderly female lying in bed in no distress RESPIRATORY SYSTEM: Unlabored breathing , decreased breath sounds at bases HEART: S1 S2 regular rate and rhythm , ABDOMEN: Soft , no tenderness EXTREMITIES: No edema feet - Labs CBC & Chem 7: 09/23/23 06:28 09/23/23 06:28 Labs: Microbiology - Last 24 Hours (Table) 09/22/23 11:57 Urine Culture - Final Urine,Clean Catch 09/22/23 11:36 Blood Culture - Preliminary Blood Assessment and Plan (1) Allergy to multiple antibiotics Status: Acute Code(s): Z88.1 - ALLERGY STATUS TO OTHER ANTIBIOTIC AGENTS SNOMED Code(s): 840896792 (2) UTI (urinary tract infection) Status: Acute Code(s): N39.0 - URINARY TRACT INFECTION, SITE NOT SPECIFIED SNOMED Code(s): 11968770 Plan: 1patient presented to hospital with sepsis in this patient who did have a leukocytosis mild hypotension elevated lactic acid urinary symptoms source is likely complicated UTI as the patient did have evidence of ureteropelvic as well as ureterovesicular stone but no mention of any significant hydronephrosis 2patient with multiple antibiotic ALLERGIES that would limit the number of antibiotic safe to use 3patient did have normalization of the white count and culture has been negative for any resistant pathogen short course of oral Ceftin on discharge Dictation was produced using [employer] dictation software. please excuse any grammatical, word or spelling errors. Time with Patient: Less than 30
--- NOTE | 2023-09-25 07:29 | XR ---
EXAMINATION TYPE: XR KUB DATE OF EXAM: 09/23/2023 COMPARISON: 08/11/2016 INDICATION: Renal stones TECHNIQUE: Frontal projection AP abdomen FINDINGS: There is a normal bowel gas pattern. There is mild fecal retention Psoas margins are normal. No organomegaly is present. There is a 0.5 cm calcification to the left of the L3-4 disc space. Finding could be related to urete ral stone. There are multiple phleboliths within the pelvis. Multiple calcifications over the left kidney. There is a calcification over the inferior pole right kidney IMPRESSION: 1. 0.5 cm calcification may be a mid left ureteral stone 2. Multiple renal calcifications
== END 2023-09-24 14:36 | disposition home or self-care (01) | DRG 872 ==
LOC: EC 17:34 → 6NMEDSUR 19:54 → OBSVTOIN 09-23 09:13
PROVIDERS: ADMIT Internal Medicine; ATTEND Internal Medicine
DX: A41.9 Sepsis, unspecified organism (principal); E27.40 Unspecified adrenocortical insufficiency; E87.20 Acidosis, unspecified; E87.1 Hypo-osmolality and hyponatremia; I27.0 Primary pulmonary hypertension; N20.2 Calculus of kidney with calculus of ureter; N39.0 Urinary tract infection, site not specified; E87.6 Hypokalemia; F32.A Depression, unspecified; F41.9 Anxiety disorder, unspecified; R31.9 Hematuria, unspecified; F43.10 Post-traumatic stress disorder, unspecified; M35.3 Polymyalgia rheumatica; I10 Essential (primary) hypertension; G43.909 Migraine, unspecified, not intractable, without status migrainosus; M17.0 Bilateral primary osteoarthritis of knee; Z79.899 Other long term (current) drug therapy; Z82.49 Family history of ischemic heart disease and other diseases of the circulatory system; Z87.442 Personal history of urinary calculi; Z85.42 Personal history of malignant neoplasm of other parts of uterus; Z88.1 Allergy status to other antibiotic agents; Z90.710 Acquired absence of both cervix and uterus; Z87.891 Personal history of nicotine dependence; Z88.0 Allergy status to penicillin; Z91.048 Other nonmedicinal substance allergy status; Z90.49 Acquired absence of other specified parts of digestive tract; Z88.5 Allergy status to narcotic agent; Z88.2 Allergy status to sulfonamides
CPT/HCPCS: 36415; 71046; 74018; 74176; 80053; 81001; 83605; 83735; 84100; 84439; 84443; 84481; 84484; 85025; 85610; 85730; 87040; 87086; 93005; 94760; 96361; 96374; 96375; 99285

== ENCOUNTER → 2023-10-06 | Outpatient (CLI) | payer MEDICARE, BC ==
--- NOTE | 2023-10-06 13:40 | XR ---
EXAMINATION TYPE: XR KUB DATE OF EXAM: 10/06/2023 COMPARISON: NONE HISTORY: Pain TECHNIQUE: Single supine KUB image of the abdomen is obtained FINDINGS: Small bowel demonstrates no evidence for dilatation or air fluid levels. Gas and fecal material is seen in non-distended colon. No convincing evidence for pneumoperitoneum. No unusual calcifications. The lung bases are clear. The osseous structures are intact. IMPRESSION: 1. Overall nonobstructive bowel gas pattern.
== END | disposition home or self-care (01) ==
LOC: RADXRMAIN 11:46
PROVIDERS: ATTEND Urology
DX: N20.1 Calculus of ureter (principal)
CPT/HCPCS: 74018

== ENCOUNTER 2023-10-12 06:47 | Day surgery (SDC) | payer MEDICARE, BC ==
[2023-10-08 12:11] VITALS: BMI 23.8
--- NOTE | 2023-10-12 06:19 | P.GSHP ---
History of Present Illness H&P Date: 10/12/23 Chief Complaint: Left renal colic The patient is a 68-year-old white female admitted last month with a 1 day history of weakness. She also reported dysuria and hematuria. CT scan showed a 6 mm left proximal ureteral calculus, a 5.5 mm calculus at the right UVJ, and bilateral renal calculi measuring up to 4 mm in size. She experienced hematuria earlier in the month of 24-hour duration, and began to experience lower abdominal pressure several days prior to admission. She was started on antibiotics prior to admission, and cultures obtained during the hospitalization were negative. She was subsequently hospitalized at [facility], and treated for gram-positive sepsis. A repeat CT scan showed bilateral ureteral calculi. When last seen in the office on October 05, she reported mild left lower back pain. She denied dysuria and hematuria. A KUB x-ray obtained that day showed a persistent left proximal ureteral calculus. It is difficult to determine whether or not she has passed the right UVJ calculus, as she has multiple pelvic phleboliths. The patient has a history of recurrent urolithiasis. She underwent ESWL on 2 occasions in 2016. Her calculi were composed of calcium phosphate carbonate. Metabolic evaluation showed evidence of hypocitraturia, and she takes potassium citrate supplementation for this reason. She has been diagnosed with renal tubular acidosis. She was recently found to have adrenal insufficiency and is being treated with steroids. She attributes her recent weakness to this. 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 HX AND CURRENT KIDNEY STONES, HX UTERINE CANCER 2019 WITH CHEMO AND RADIATION, COMPLETED summer, POLYMYALGIA RHEUMATICA. History of Any Multi-Drug Resistant Organisms: None Reported Past Surgical History: Section, Cholecystectomy, Hysterectomy, Orthopedic Surgery, Tonsillectomy Additional Past Surgical History / Comment(s): X 4, RT KNEE SURGERY, D&C, colonosopy, bilateral tubes in ears, LITHROTRIPSY. Past Anesthesia/Blood Transfusion Reactions: Motion Sickness, Postoperative Nausea & Vomiting (PONV) Additional Past Anesthesia/Blood Transfusion Reaction / Comment(s): "Only had PONV with Hysterectomy." Smoking Status: Former smoker - Past Family History Mother Family Medical History: AFIB, CVA/TIA, Neurologic Disorder Additional Family Medical History / Comment(s): HX PARKINSON'S Father Family Medical History: Cancer, CVA/TIA, Myocardial Infarction ([place]) Additional Family Medical History / Comment(s): HEART DISEASE, PANCREATIC CANCER. Medications and Allergies Home Medications Medication Instructions Recorded Confirmed Type Macitentan [Opsumit] 10 mg PO QAM 09/22/13 10/08/23 History Sildenafil [Revatio] 20 mg PO TID 06/12/18 10/08/23 History Omeprazole [PriLOSEC] 40 mg PO QAM 04/25/20 10/08/23 History ALPRAZolam [Xanax] 0.25 mg PO BID PRN 10/17/21 10/08/23 History Ezetimibe [Zetia] 10 mg PO DAILY 10/17/21 10/08/23 History FLUoxetine HCL [PROzac] 40 mg PO DAILY 10/17/21 10/08/23 History Gabapentin 600 mg PO TID 10/17/21 10/08/23 History Acetaminophen [Tylenol Extra 1,000 mg PO BID PRN 09/21/23 10/08/23 History Strength] Cholecalciferol (Vitamin D3) 1,250 mcg PO WE 09/21/23 10/08/23 History [Vitamin D3 (1250 Mcg = 50,000 Iu)] Ondansetron Odt [Zofran ODT] 4 mg PO Q8HR PRN 09/21/23 10/08/23 History Potassium Citrate [Potassium 20 meq PO BID 09/21/23 10/08/23 History Citrate ER] Acetaminophen-Codeine 300-30mg 1 tab PO Q4H PRN 3 Days #15 tablet 09/24/23 10/08/23 Rx [Tylenol w/codeine #3] Ondansetron Odt [Zofran Odt] 4 mg SL Q6HR PRN #10 tab 09/24/23 10/08/23 Rx Tamsulosin [Flomax] 0.4 mg PO DAILY #30 cap 09/24/23 10/08/23 Rx Antibiotic (Unknown Name/Dose) 1 tab PO BID 10/08/23 10/08/23 History Hydrocortisone 20 mg PO HS 10/08/23 10/08/23 History Hydrocortisone [Cortef] 40 mg PO QAM 10/08/23 10/08/23 History Allergies Allergy/AdvReac Type Severity Reaction Status Date / Time hydrocodone bitartrate Allergy Mild Nausea & Verified 10/08/23 11:48 [From Vicodin] Vomiting adhesive tape Allergy Rash/Hives Verified 10/08/23 11:48 levofloxacin [From Levaquin] Allergy Anaphylaxis Verified 10/08/23 11:48 Penicillins Allergy Rash/Hives Verified 10/08/23 11:48 Quinolones Allergy AFFECTS Verified 10/08/23 11:48 HEART RHYTHM Sulfa (Sulfonamide Allergy Rash/Hives Verified 10/08/23 11:48 Antibiotics) morphine AdvReac Severe stomach Verified 10/08/23 11:48 pain Surgical - Exam - General well developed, well nourished, no distress - Respiratory normal respiratory effort - Abdomen Abdomen: soft, non tender, no guarding, no rigid, no rebound - Psychiatric oriented to time, oriented to person, oriented to place, speech is normal, memory intact Results - Imaging Abdominal x-ray: report reviewed, image reviewed CT scan - abdomen: report reviewed, image reviewed Assessment and Plan (1) Calculus of ureter Status: Acute Code(s): N20.1 - CALCULUS OF URETER SNOMED Code(s): 68255026 Plan: Left extracorporal shockwave lithotripsy (ESWL). Patient understands the procedure and potential associated risks, which include anesthesia, injury to adjacent organs, treatment failure, incomplete fragmentation, and [place]. She is also aware of the possible need for a secondary procedure.
--- NOTE | 2023-10-12 07:10 | XR ---
EXAMINATION TYPE: XR KUB DATE OF EXAM: 10/12/2023 COMPARISON: 10/06/2023 INDICATION: Renal stones TECHNIQUE: Single view abdomen frontal projection supine view FINDINGS: There is a normal bowel gas pattern. Psoas margins are normal. No organomegaly is present. Multiple small calcifications overlying the mid and lower pole of the left kidney. The largest left k idney measures 0.5 cm. There is a mid right renal stone 0.4 cm. There is a calcification at the level of the left L5 transverse process 0.7 cm may be made left ureteral stone. Multiple phleboliths within the pelvis Cholecystectomy clips are present. IMPRESSION: 1. There may be a 0.7 cm mid left ureteral stone at the level of the L5 transverse process. 2. Multiple left renal stones. Right renal stone is also present.
[2023-10-12 07:37] VITALS: TEMP 98.1
[2023-10-12] MEDS: IV FLUID CONTINUATION 1,000 ML IV ONE ×2 (07:46→08:16)
[2023-10-12 07:47] LABS: Glucose,Whole Blood 109 mg/dL (70-110)
[2023-10-12] MEDS: LACTATED RINGERS 1,000 ML IV SCH (07:49)
[2023-10-12] MEDS ORDERED: fentaNYL (PF) 50 MCG/ML 2 ML AMP ONE (08:20)
[2023-10-12] MEDS ORDERED: MIDAZOLAM 2 MG/2 ML VIAL ONE (08:20)
[2023-10-12] MEDS ORDERED: LIDOCAINE 1% INJ 10MG/ML (20 ML MDV) ONE (08:20)
[2023-10-12] MEDS ORDERED: PROPOFOL 10 MG/ML 20 ML VIAL IV ONE (08:20)
--- NOTE | 2023-10-12 08:29 | P.OP ---
Date of Procedure: 10/12/23 Preoperative Diagnosis: LEFT Ureteral stone Postoperative Diagnosis: SAME Procedure(s) Performed: LEFT ESWL Implants: none Anesthesia: MAC Surgeon: Dontae Barton Estimated Blood Loss (ml): 0 Pathology: none sent Condition: stable Disposition: PACU Indications for Procedure: The patient is a 68-year-old white female admitted last month with a 1 day history of weakness. She also reported dysuria and hematuria. CT scan showed a 6 mm left proximal ureteral calculus, a 5.5 mm calculus at the right UVJ, and bilateral renal calculi measuring up to 4 mm in size. She experienced hematuria earlier in the month of 24-hour duration, and began to experience lower abdominal pressure several days prior to admission. She was started on antibiotics prior to admission, and cultures obtained during the hospitalization were negative. She was subsequently hospitalized at [facility], and treated for gram-positive sepsis. A repeat CT scan showed bilateral ureteral calculi. When last seen in the office on October 05, she reported mild left lower back pain. She denied dysuria and hematuria. A KUB x-ray obtained that day showed a persistent left proximal ureteral calculus. It is difficult to determine whether or not she has passed the right UVJ calculus, as she has multiple pelvic phleboliths. The patient has a history of recurrent urolithiasis. She underwent ESWL on 2 occasions in 2016. Her calculi were composed of calcium phosphate carbonate. Metabolic evaluation showed evidence of hypocitraturia, and she takes potassium citrate supplementation for this reason. She has been diagnosed with renal tubular acidosis. She was recently found to have adrenal insufficiency and is being treated with steroids. She attributes her recent weakness to this. Description of Procedure: he patient was taken to the operating room and placed on the [employer] Groov[employer] Delta II lithotripter in the supine position. The calculus was seen on biplanar fluoroscopy. Once the patient was properly positioned and sedated, lithotripsy was performed. The energy level was gradually increased per protocol, to an energy level of 6 [After 200 shocks were administered, a 1 minute pause was instituted per protocol. ]A total of 3000 shocks were given at a rate of 80 shocks per minute. Fluoroscopy was utilized at a minimum to ensure proper positioning and determine the treatment status. The appearance of the calculus did change , suggesting fragmentation had occurred. The patient tolerated the procedure well was taken to the recovery room in stable condition. Instructions were given to strain the urine, and the patient will follow-up within one week.
[2023-10-12 09:42] VITALS: RESP 16
[2023-10-12 09:49] VITALS: BP 126/76; PULSE 62
== END 2023-10-12 10:27 | disposition home or self-care (01) ==
LOC: ORWHC2ENDO 06:47
PROVIDERS: ATTEND Urology
DX: N20.1 Calculus of ureter (principal); E78.5 Hyperlipidemia, unspecified; K21.9 Gastro-esophageal reflux disease without esophagitis; I27.20 Pulmonary hypertension, unspecified; E27.40 Unspecified adrenocortical insufficiency; M35.3 Polymyalgia rheumatica; Z85.42 Personal history of malignant neoplasm of other parts of uterus; Z87.891 Personal history of nicotine dependence; Z88.0 Allergy status to penicillin; Z88.1 Allergy status to other antibiotic agents; Z88.2 Allergy status to sulfonamides; Z88.5 Allergy status to narcotic agent; Z90.49 Acquired absence of other specified parts of digestive tract; Z90.710 Acquired absence of both cervix and uterus; Z79.899 Other long term (current) drug therapy; Z79.1 Long term (current) use of non-steroidal anti-inflammatories (NSAID)
CPT/HCPCS: 74018; 50590; J2250; J2001; J3010; J2704

== ENCOUNTER → 2023-10-20 | Outpatient (CLI) | payer MEDICARE, BC ==
--- NOTE | 2023-10-20 13:46 | XR ---
EXAMINATION TYPE: XR KUB DATE OF EXAM: 10/20/2023 Comparison: 10/12/2023 Clinical History: 68-year-old female N20.1 URETERAL CALCULUS Findings: 1.2 cm density left midabdomen. Small possible 5 mm calcification. Multiple pelvic phleboliths. Keri cystectomy clips. Lung bases are clear. Impression: Bilateral nephrolithiasis possibly measuring up to 1.2 cm on the left. Moderate stool burden. Cholecy stectomy clips. Multiple pelvic phleboliths.
== END | disposition home or self-care (01) ==
LOC: RADXRMAIN 13:06
PROVIDERS: ATTEND Urology
DX: N20.2 Calculus of kidney with calculus of ureter (principal)
CPT/HCPCS: 74018

== ENCOUNTER → 2023-10-30 | Outpatient (CLI) | payer MEDICARE, BC ==
--- NOTE | 2023-10-30 15:33 | BD ---
EXAMINATION TYPE: Axial Bone Density DATE OF EXAM: 10/30/2023 CLINICAL HISTORY: 68 years old Female. ICD-10 CODE: M81.0 AGE-RELATED OSTEOPOROSIS W/O CURRENT P Z78 .0 ASYMPTOM Height: 5 ft 7 in Weight: 150 FRAX RISK QUESTIONS: Alcohol (3 or more units per day): no Family History (Parent hip fracture): no Glucocorticoids (More than 3mos): yes (Ex: prednisone, prednisolone, methylprednisolone, dexamethasone, and hydrocortisone). History of Fracture in Adulthood: yes Secondary Osteoporosis: 1. Type 1 Diabetes: no 2. Hyperthyroidism: no 3. Menopause before 45: no 4. Malnutrition: no 5. Chronic liver disease: no Rheumatoid Arthritis: yes Current Tobacco Use: no RISK FACTORS HISTORY OF: Surgery to Spine/Hip(right/left)/Wrist (right/left): no MEDICATIONS: Thyroid Medications: none Osteoporosis Medications: none EXAM MEASUREMENTS: Bone mineral densitometry was performed using the [employer] System. Bone mineral density as measured about the Lumbar spine is: ----- L1-L4(G/cm2): 0.816 T Score Values are as follows: ----- L1: -3.1 ----- L2: -3.0 ----- L3: -2.7 ----- L4: -3.4 ----- L1-L4: -3.0 Z Score Values are as follows: ----- L1: -1.6 ----- L2: -1.5 ----- L3: -1.2 ----- L4: -1.8 ----- L1-L4: -1.5 Bone mineral density has: decreased -4.3 % since study of: 2019 Bone mineral density about the R hip (g/cm2): 0.671 Bone mineral density about the L hip (g/cm2): 0.669 T Score values are as follows: -----R Neck: -2.6 -----L Neck: -2.7 -----R Total: -2.5 -----L Total: -2.7 Z Score values are as follows: -----R Neck: -1.1 -----L Neck: -1.1 -----R Total: -1.2 -----L Total: -1.4 Bone mineral density has: decreased -4.0 % since study of: 2019 FRAX%s: The graph provided illustrates a 37.0 % chance for a major osteoporotic fx and a 10.8 % chanc e for the hips probability for fx in 10 years time. IMPRESSION: Osteoporosis (T Score less than -2.5). There is increased fracture risk and therapy is usually indicated based on age. Re-Screen 1-2 years. NOTE: T-SCORE=SD OF THE YOUNG ADULT MEAN.
== END | disposition home or self-care (01) ==
LOC: RADBDWWP 11:17
PROVIDERS: ATTEND Internal Medicine
DX: M81.0 Age-related osteoporosis without current pathological fracture (principal); Z78.0 Asymptomatic menopausal state
CPT/HCPCS: 77080

== ENCOUNTER → 2023-11-03 | Outpatient (CLI) | payer MEDICARE, BC ==
--- NOTE | 2023-11-03 14:54 | CT ---
EXAMINATION TYPE: CT ChestAbdPelvis wo con CT DLP: 1090 mGycm, Automated exposure control for dose reduction was used. DATE OF EXAM: 11/03/2023 11:43 AM COMPARISON: CT abdomen and pelvis 09/21/2023, CT chest abdomen pelvis 05/04/2023, 10/29/2022 CLINICAL INDICATION:Female, 68 years old with history of C54.9 MALIGNANT NEOPLASM OF CORPUS UTERI; PH H, uterine CA f/u Technique: Multiple axial images of the chest, abdomen, and pelvis were obtained without the administ ration intravenous contrast. This appearance limits evaluation. Oral contrast was administered. Two-d imensional coronal and sagittal reconstructions were obtained. Findings: CHEST: LUNGS/ PLEURA: No pneumothorax pleural effusion. Stable left lower lobe 7 mm pulmonary nodule (series 4, image 47). Stable left lower lobe 4 mm pulmonary nodule (series 4, image 54). No new or enlarging pulmonary nodules. Mild emphysematous changes redemonstrated. Similar scattered peripheral nodular g roundglass densities from prior examination. AIRWAY: Patent and unremarkable.. HEART: Size within normal limits. Trace pericardial fluid/thickening, unchanged. MEDIASTINUM: No gross evidence of adenopathy. VASCULATURE: No aortic aneurysm. Redemonstrated large caliber to the main pulmonary outflow tract an d main right and left pulmonary arteries measuring up to 4.6 cm suggesting pulmonary arterial hyperte nsion. MUSCULOSKELETAL: No acute osseous abnormalities. Chronic expanded rib deformity of the left third rib , possible Paget's disease or site of old treated disease. SOFT TISSUES/LYMPH NODES: Unremarkable. LOWER NECK: No significant findings. ABDOMEN: ABDOMEN LIVER: Stable scattered hypodensities measuring up to 1 cm suggesting benign cysts. GALLBLADDER AND BILE DUCTS: The gallbladder is surgically absent. No biliary duct dilatation. PANCREAS: Unremarkable noncontrast appearance. SPLEEN: Unremarkable noncontrast appearance. ADRENAL GLANDS: Unremarkable noncontrast appearance. KIDNEYS AND URETERS: Numerous bilateral nonobstructive renal calculi redemonstrated measuring up to 5 mm. No hydronephrosis. Previously seen left ureteropelvic and right uterovesical junction calculi ar e no longer visualized. Subcentimeter right mid kidney hypodense focus which is too small to characte rize but likely represents a cyst. Additional one within the mid left kidney. PELVIS BLADDER: Unremarkable REPRODUCTIVE: The uterus is surgically absent. No suspicious adnexal mass. ABDOMEN & PELVIS STOMACH AND BOWEL: Stomach and duodenum are unremarkable. No focal wall thickening. Enteric contrast reaches the proximal colon. The appendix is within normal limits. No evidence of bowel obstruction. PERITONEUM: No evidence of pneumoperitoneum or free fluid. VASCULATURE: No evidence of aortic aneurysm. Multiple pelvic phleboliths. MUSCULOSKELETAL: No acute osseous abnormalities. No aggressive osseous lesion. LYMPH NODES: No gross evidence for lymphadenopathy. SOFT TISSUE/ABDOMINAL WALL: Unremarkable IMPRESSION: 1. Status post hysterectomy and bilateral salpingooophorectomy. No evidence for local recurrence with in the limitations of a noncontrast exam. Chronic expansile deformity of the left third rib. No evide nce for new metastatic disease. 2. COPD changes with mild emphysema. Stable pulmonary nodules from prior examination. No new or enlar ging pulmonary nodules. 3. Nonobstructive bilateral renal calculi.
== END | disposition home or self-care (01) ==
LOC: RADCTMAIN 09:49
PROVIDERS: ATTEND Internal Medicine Hematology & Oncology
DX: J43.9 Emphysema, unspecified (principal); J44.9 Chronic obstructive pulmonary disease, unspecified; C54.9 Malignant neoplasm of corpus uteri, unspecified; N20.0 Calculus of kidney; M35.3 Polymyalgia rheumatica; G62.0 Drug-induced polyneuropathy; I27.0 Primary pulmonary hypertension; M89.8X8 Other specified disorders of bone, other site; Z90.710 Acquired absence of both cervix and uterus; Z90.722 Acquired absence of ovaries, bilateral
CPT/HCPCS: 71250; 74176

== ENCOUNTER → 2023-11-10 | Outpatient (CLI) | payer MEDICARE, BC ==
[2023-11-10 21:10] LABS: ALT 21 U/L (8-44); AST 21 U/L (13-35); Albumin 4.7 g/dL (3.8-4.9); Albumin/Globulin Ratio 2.76 Ratio (1.60-3.17); Alkaline Phosphatase 74 U/L (41-126); BUN/Creat Ratio 22.22 Ratio (12.00-20.00); Calcium 9.5 mg/dL (8.7-10.3); Carbon Dioxide 21.2 mmol/L (21.6-31.8); Chloride 108 mmol/L (96-109); Globulin 1.7 g/dL (1.6-3.3); Glucose 117 mg/dL (70-110); Phosphorus 2.5 mg/dL (2.4-5.1); Potassium 3.8 mmol/L (3.5-5.5); Sodium 143 mmol/L (135-145); Total Bilirubin 0.3 mg/dL (0.3-1.2); Total Protein 6.4 g/dL (6.2-8.2)
== END | disposition home or self-care (01) ==
LOC: LABWHC1 13:40
PROVIDERS: ATTEND Internal Medicine
DX: M81.0 Age-related osteoporosis without current pathological fracture (principal); E55.9 Vitamin D deficiency, unspecified
CPT/HCPCS: 36415; 80053; 82306; 82523; 83970; 84100

== ENCOUNTER → 2024-02-18 | Outpatient (CLI) | payer MEDICARE, BC ==
[2024-02-18 14:12] VITALS: BP 125/80; PULSE 89; RESP 16; TEMP 98
[2024-02-18] MEDS: ZOLEDRONIC ACID 5 MG in SODIUM CHLORIDE 0.9% 100 ML IV NR (14:19)
[2024-02-18] MEDS: SODIUM CHLORIDE 0.9% 500 ML 500 ML in EMPTY BAG 1 BAG IV PRN (14:19)
== END ==
LOC: PROCWHC3 13:43
PROVIDERS: ATTEND Internal Medicine
DX: M81.0 Age-related osteoporosis without current pathological fracture (principal)
CPT/HCPCS: 96365

== ENCOUNTER → 2024-03-16 | Outpatient (CLI) | payer MEDICARE, BC ==
[2024-03-16 18:15] LABS: HCT 42.9 % (37.2-46.3); HGB 13.4 g/dL (12.0-15.0); MCH 28.3 pg (27.0-32.0); MCHC 31.2 g/dL (32.0-37.0); MCV 90.5 FL (80.0-97.0); Mean Platelet Volume 11.4 FL (9.5-12.2); NRBC Per 100 WBC 0 X 10*3/uL (0.00-0.01); Platelet Count 288 X 10*3/uL (140-440); RBC 4.74 X 10*6/uL (4.10-5.20); RDW 14.2 % (11.5-14.5); WBC 10.48 X 10*3/uL (4.50-10.00)
[2024-03-16 18:51] LABS: Appearance,Urine Clear (Clear); Bilirubin,Urine Negative (Negative); Blood,Urine Negative (Negative); Color,Urine Yellow (Yellow); Ketones,Urine Negative (Negative); Nitrite,Urine Negative (Negative); PH, Urine 7.5; Specific Gravity,Urine 1.006 (1.001-1.030); Urobilinogen,Urine 0.2 E.U./DL
[2024-03-16 18:52] LABS: ALT 16 U/L (8-44); AST 21 U/L (13-35); Albumin 4.5 g/dL (3.8-4.9); Albumin/Globulin Ratio 2.25 Ratio (1.60-3.17); Alkaline Phosphatase 90 U/L (41-126); BUN/Creat Ratio 18.43 Ratio (12.00-20.00); Blood Urea Nitrogen 12.9 mg/dL (9.0-27.0); Calcium 9.4 mg/dL (8.7-10.3); Carbon Dioxide 23.8 mmol/L (21.6-31.8); Chloride 102 mmol/L (96-109); Glucose 98 mg/dL (70-110); Phosphorus 2.5 mg/dL (2.4-5.1); Potassium 5.2 mmol/L (3.5-5.5); Sodium 137 mmol/L (135-145); Total Bilirubin 0.3 mg/dL (0.3-1.2); Total Protein 6.5 g/dL (6.2-8.2); Uric Acid 5.1 mg/dL (2.9-7.7)
== END | disposition home or self-care (01) ==
LOC: LABWHC1 13:23
PROVIDERS: ATTEND Internal Medicine Nephrology
DX: R82.994 Hypercalciuria (principal); R82.991 Hypocitraturia; E27.2 Addisonian crisis; E87.3 Alkalosis; N20.0 Calculus of kidney
CPT/HCPCS: 36415; 80053; 81003; 82306; 84100; 84550; 85027

== ENCOUNTER → 2024-05-03 | Outpatient (CLI) | payer MEDICARE, BC ==
--- NOTE | 2024-05-05 08:40 | CT ---
EXAMINATION TYPE: CT ChestAbdPelvis wo con DATE OF EXAM: 05/03/2024 COMPARISON: Prior CT November 03, 2023 and older studies. HISTORY: Hx endometrial cancer progress study CT DLP: 554.80 mGycm. Automated Exposure Control for Dose Reduction was Utilized. TECHNIQUE: CT scan of the thorax, abdomen and pelvis is performed with oral but without IV contrast. FINDINGS: Within the limitations of noncontrast study, the following observations are made. LUNGS: Subcentimeter areas of parenchymal scarring in the mid to lower lungs bilaterally remains pres ent. There is stable peripheral 6 x 4 mm left lower lobe pulmonary nodule axial image 47. New multifo cruz subtle groundglass opacities in the lower lungs is nonspecific. No pleural effusion or pneumothor ax seen bilaterally. MEDIASTINUM: There are no greater than 1 cm hilar or mediastinal lymph nodes. Stable tiny pericardial effusion is redemonstrated. No cardiomegaly. Persistent enlarged main and right pulmonary arteries c onsistent with underlying pulmonary artery hypertension. LIVER/GB: Cholecystectomy clips are redemonstrated. A few scattered subcentimeter hypodense lesions t hroughout the liver are redemonstrated and stable. PANCREAS: No significant abnormality is seen. SPLEEN: No significant abnormality is seen. ADRENALS: No significant abnormality is seen. KIDNEYS: Scattered small nonobstructing calculi throughout bilateral kidneys are redemonstrated. No h ydronephrosis or obstructing ureteral calculi bilaterally BOWEL: Oral contrast reaches level of the left colon on current study. No suspicious small or large b owel dilatation. GENITAL ORGANS: Uterus is surgically absent. Scattered bilateral pelvic phleboliths are redemonstrate d. LYMPH NODES: No greater than 1cm abdominal or pelvic lymph nodes are appreciated. OSSEOUS STRUCTURES: Persistent expansile left posterior lateral third rib lesion. No new suspicious f ocal osseous lesions identified. Finding could reflect treated disease or product of Paget's disease. OTHER: No significant additional abnormality is seen. IMPRESSION: There are new multifocal subcentimeter groundglass opacities in the bilateral lower lungs . Correlate for pulmonary infection otherwise active early metastatic disease is not entirely exclude d and short-term follow-up would be advised. [facility], , 05/05/2024 8:37 AM
== END | disposition home or self-care (01) ==
LOC: RADCTMAIN 10:38
PROVIDERS: ATTEND Internal Medicine Hematology & Oncology
DX: I27.0 Primary pulmonary hypertension (principal); C54.9 Malignant neoplasm of corpus uteri, unspecified; M35.3 Polymyalgia rheumatica; G62.0 Drug-induced polyneuropathy
CPT/HCPCS: 71250; 74176

== ENCOUNTER → 2024-05-20 | Outpatient (CLI) | payer MEDICARE, BC ==
--- NOTE | 2024-05-20 13:10 | MM ---
Reason for Exam: Screening (asymptomatic). Last screening mammogram was performed 12 month(s) ago. Patient History: Menarche at age 17. First Full-Term at age 26. Left ovary removed at age 64. Right ovary removed at age 64. Hysterectomy at age 64. Postmenopausal. Patient has history of breast feeding. Currently using Estrogen, for 1 year. Paternal aunt had breast cancer, age 50. Risk Values: Stefanie 5 year model risk: 1.7%. NCI Lifetime model risk: 5.4%. Prior Study Comparison: 03/06/2021 Bilateral Screening Mammogram, [facility]. 04/02/2022 Bilateral MG 3D screening mammo w/cad, [facility]. 05/12/2023 Bilateral MG 3D screening mammo w/cad, [facility]. Tissue Density: The breasts are heterogeneously dense, which may obscure small masses. Findings: Analyzed By CAD. Chronic nodularity on the left. There is no suspicious group of microcalcifications or new suspicious mass in either breast. Overall Assessment: Benign, BI-RAD 2 Management: Screening Mammogram of both breasts in 1 year. . Patient should continue monthly self-breast exams. A clinical breast exam by your physician is recommended on an annual basis. This exam should not preclude additional follow-up of suspicious palpable abnormalities. Note on Stefanie scores and lifetime risk: 1. A Stefanie score greater than 3% is considered moderate risk. If this is the case, consider specialist referral to assess eligibility for a risk reducing agent. 2. If overall lifetime risk for the development of breast cancer is 20% or higher, the patient may qualify for future screening with alternating mammogram and breast MRI. [facility], , 05/20/2024 1:07 PM. Electronically signed and approved by: Suni Reeves M.D. Radiologist
== END | disposition home or self-care (01) ==
LOC: RADMAMWWP 11:40
PROVIDERS: ATTEND Obstetrics & Gynecology
DX: Z12.31 Encounter for screening mammogram for malignant neoplasm of breast (principal); R92.333 Mammographic heterogeneous density, bilateral breasts; Z78.0 Asymptomatic menopausal state; Z80.3 Family history of malignant neoplasm of breast
CPT/HCPCS: 77063; 77067

== ENCOUNTER → 2024-07-08 | Outpatient (CLI) | payer MEDICARE, BC ==
[2024-07-08 18:36] LABS: BUN/Creat Ratio 21.14 Ratio (12.00-20.00); Blood Urea Nitrogen 14.8 mg/dL (9.0-27.0); Glucose 95 mg/dL (70-110); Uric Acid 4.5 mg/dL (2.9-7.7)
[2024-07-08 18:37] LABS: Calcium 10.1 mg/dL (8.7-10.3); Carbon Dioxide 24.5 mmol/L (21.6-31.8); Chloride 101 mmol/L (96-109); Potassium 4.8 mmol/L (3.5-5.5); Sodium 139 mmol/L (135-145)
== END | disposition home or self-care (01) ==
LOC: LABWHC1 11:59
PROVIDERS: ATTEND Internal Medicine Nephrology
DX: N20.0 Calculus of kidney (principal); R82.991 Hypocitraturia; R82.994 Hypercalciuria
CPT/HCPCS: 36415; 80048; 82306; 83970; 84550

== ENCOUNTER → 2024-11-08 | Outpatient (CLI) | payer MEDICARE, BC ==
--- NOTE | 2024-11-08 14:10 | CT ---
EXAMINATION TYPE: CT ChestAbdPelvis wo con DATE OF EXAM: 11/08/2024 COMPARISON: 05/03/2024 CLINICAL INDICATION: Female, 69 years old with history of C54.9 ENDOMETRIAL CANCER; [facility], Endometrial ca TECHNIQUE: CT scan of the thorax, abdomen and pelvis is performed without IV contrast. CT DLP: [address] CTDI: mGy Automated exposure control for dose reduction was used. FINDINGS: CT chest: The multiple small groundglass opacities in the lung bases seen on the prior study have significantly decreased in size and number in the interval but small groundglass opacities do persist.. When chiqui ured in a similar fashion there is a stable 9 mm left lower lobe pulmonary nodule. There are no new l sahra masses or nodules. There is no pleural effusion or pneumothorax There is no pleural effusion, pleural thickening or pneumothorax. The great vessels and chest are normal there is no mediastinal, hilar or axillary adenopathy. Persistent stable well corticated expansile left third rib lesions stable dating back to 01/25/2020. 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 CT abdomen and pelvis: There is surgical absence of the gallbladder. There is no biliary ductal dilatation. There is no focal mass or organomegaly involving the liver, pancreas, spleen or adrenal glands.. There is no solid renal mass or hydronephrosis. Multiple stable nonobstructing bilateral renal calcif ications. There is no retroperitoneal adenopathy or hemorrhage in the caliber of the abdominal aorta is normal. The bowel loops are normal in caliber and there is no dilatation or obstruction. No inflammatory veliz ges identified in the bowel wall and mesentery. There is no free intracranial air or fluid. There is no pelvic mass or adenopathy. There are surgical absence of the uterus. No focal osseous lesions are seen. Soft tissue the abdomen and pelvis are normal. IMPRESSION: 1. Scattered small ground glass opacities in the lower lobes persist but are significantly reduced in size and number. 2. Stable 8 to 9 mm left lower lobe pulmonary nodule. 3. 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 Stable dating back to 01/25/2020. 4. Multiple stable bilateral nonobstructing renal calcifications 5. no definite evidence of metastatic disease within the chest, abdomen or pelvis. [facility], , 11/08/2024 2:07 PM
== END | disposition home or self-care (01) ==
LOC: RADCTMAIN 10:55
PROVIDERS: ATTEND Internal Medicine Hematology & Oncology
DX: C54.9 Malignant neoplasm of corpus uteri, unspecified (principal); G62.0 Drug-induced polyneuropathy; M35.3 Polymyalgia rheumatica; I27.0 Primary pulmonary hypertension; R91.8 Other nonspecific abnormal finding of lung field; N28.89 Other specified disorders of kidney and ureter; R91.1 Solitary pulmonary nodule
CPT/HCPCS: 71250; 74176